=== PATIENT | male | born 1935 | race Caucasian/White ===

== ENCOUNTER 2017-10-14 23:25 | Inpatient (IN) | payer MEDICARE, OTHER ==
[~2017-10-14 23:25] MED LIST: BIVALIRUDIN 250 MG in SODIUM CHLORIDE 0.9% 50 ML IV ONE; IV FLUID CONTINUATION 1,000 ML IV ONE
[2017-10-14] MEDS ORDERED: NITROGLYCERIN SL TABS 0.4 MG TAB SUBLINGUAL PRN (23:27)
--- NOTE | 2017-10-14 23:36 | ED ---
Chest Pain HPI - General Stated Complaint: Chest Pain Time Seen by Provider: 10/14/17 23:27 Source: patient, EMS Mode of arrival: EMS Limitations: no limitations - History of Present Illness Initial Comments: This patient is an 82-year-old man brought by ambulance to be evaluated for chest pain. Family had called EMS tonight after the patient had a fall at home and then was complaining of chest pain. The symptoms started probably nearly an hour ago now. The patient was walking across his home had a ground-level fall, and then after the fall was complaining of having pain to the substernal area. He also felt like it was very hard to breathe. EMS arrived and placed the patient on a monitor which did appear to show inferior lead ST elevations. They sent a telemetry EKG and transported the patient here. History is somewhat limited as the patient appears to have some moderate underlying dementia. MD Complaint: chest pain -: hour(s) Onset: other (After a fall) Pain Location: substernal Pain Radiation: none Severity: moderate Quality: aching Consistency: constant, other (Somewhat improved) Improves With: nitroglycerin, other (Aspirin) Worsens With: nothing Context: trauma/injury Anginal Symptoms: dyspnea Treatments Prior to Arrival: aspirin, nitroglycerin, oxygen - Related Data Home Medications Medication Instructions Recorded Confirmed Donepezil [Aricept] 10 mg PO DAILY 10/15/17 10/15/17 Enalapril Maleate [Vasotec] 5 mg PO DAILY 10/15/17 10/15/17 Etodolac [Lodine] 400 mg PO BID 10/15/17 10/15/17 Hydrochlorothiazide 25 mg PO DAILY 10/15/17 10/15/17 Lovastatin [Mevacor] 10 mg PO DAILY 10/15/17 10/15/17 Multivitamin with Iron 1 each PO DAILY 10/15/17 10/15/17 [Multivitamins with Iron] Sertraline [Zoloft] 25 mg PO DAILY 10/15/17 10/15/17 Tamsulosin [Flomax] 0.8 mg PO DAILY 10/15/17 10/15/17 Verapamil HCl [Verapamil ER] 180 mg PO DAILY 10/15/17 10/15/17 Allergies Allergy/AdvReac Type Severity Reaction Status Date / Time No Known Allergies Allergy Verified 03/17/18 23:31 Review of Systems ROS Statement: Those systems with pertinent positive or pertinent negative responses have been documented in the HPI. ROS Other: All systems not noted in ROS Statement are negative. Constitutional: Denies: fever Eyes: Denies: vision change Respiratory: Reports: as per HPI, dyspnea. Denies: cough, hemoptysis Cardiovascular: Reports: chest pain. Denies: palpitations, orthopnea, syncope Gastrointestinal: Denies: abdominal pain, vomiting, melena, hematochezia Musculoskeletal: Denies: back pain Skin: Denies: rash Neurological: Denies: headache, weakness, numbness EKG Findings - EKG Results: EKG: interpreted by ERMD, normal axis, normal QRS EKG shows: bradycardia (Rate proximally 46 bpm. Narrow complex rhythm appearing to be junctional.) - CO, Pacemaker, Normal: Myocardial infarction: inferior CO (acute or recent) Past Medical History Past Medical History: No Reported History History of Any Multi-Drug Resistant Organisms: None Reported Past Surgical History: Back Surgery Past Psychological History: No Psychological Hx Reported Smoking Status: Former smoker Past Alcohol Use History: Daily - Past Family History Father Family Medical History: Renal Disease Mother Family Medical History: Myocardial Infarction ([place]) General Exam Limitations: no limitations General appearance: alert, in no apparent distress Head exam: Present: atraumatic, normocephalic Eye exam: Present: normal appearance. Absent: scleral icterus, conjunctival injection ENT exam: Present: normal oropharynx Neck exam: Present: normal inspection, full ROM Respiratory exam: Present: normal lung sounds bilaterally. Absent: respiratory distress, wheezes, rales, rhonchi, stridor Cardiovascular Exam: Present: normal rhythm, bradycardia, normal heart sounds. Absent: systolic murmur, diastolic murmur, rubs, gallop GI/Abdominal exam: Present: soft. Absent: distended, tenderness, guarding, rebound, mass Extremities exam: Present: normal inspection, normal capillary refill. Absent: pedal edema, calf tenderness Neurological exam: Present: alert. Absent: oriented X3 (Disoriented to date), motor sensory deficit Skin exam: Present: warm, dry, intact, normal color. Absent: rash Course Vital Signs 10/14/17 10/14/17 23:26 23:42 Temperature 97.4 F L Pulse Rate 51 L 48 L Respiratory 20 18 Rate Blood Pressure 112/54 91/57 O2 Sat by Pulse 99 99 Oximetry Chest Pain MDM - MDM Patient is an 82-year-old man in with acute ST elevation CO. Discussed the case with interventional cardiology based on the EMS telemetry EKG. The cath team is already in the house doing another procedure. On arrival, patient prepped and to [facility] T[facility]. Critical Care Time Critical Care Time: Yes (30 minutes) Disposition Clinical Impression: ST elevation myocardial infarction (STEMI) Disposition: ADMITTED IP TO THIS HOSP Condition: Serious
[2017-10-14] MEDS ORDERED: HEPARIN SODIUM,PORCINE 5,000 UNIT/ML 1 ML VIAL IV ONE (23:40)
[2017-10-14] MEDS ORDERED: ATORVASTATIN 80 MG TAB PO STA (23:41)
[2017-10-14] MEDS ORDERED: HEPARIN SOD,PORK IN 0.45% NACL 25,000 UNIT in 0.45% NACL 1 500ML.BAG IV SCH (23:45)
[2017-10-14 23:47] LABS: Basophils # (A) 0.1 k/uL (0-0.2); Basophils % (A) 1 %; Eosinophils # (A) 0.5 k/uL (0-0.7); Eosinophils % (A) 5 %; HCT 42.3 % (39.0-53.0); HGB 14.8 gm/dL (13.0-17.5); Lymphocytes # (A) 2.7 k/uL (1.0-4.8); Lymphocytes % (A) 27 %; MCH 31.8 pg (25.0-35.0); MCV 90.8 fL (80.0-100.0); Mean Platelet Volume 7.3; Monocytes # (A) 0.7 k/uL (0-1.0); Monocytes % (A) 7 %; Neutrophils # (A) 5.7 k/uL (1.3-7.7); Neutrophils % (A) 58 %; Platelet Count 298 k/uL (150-450); RBC 4.66 m/uL (4.30-5.90); RDW 12.9 % (11.5-15.5); WBC 9.9 k/uL (3.8-10.6)
[2017-10-14 23:49] LABS: Albumin 3.6 g/dL (3.5-5.0); Calcium 9.9 mg/dL (8.4-10.2); Potassium 3.8 mmol/L (3.5-5.1); Total Bilirubin 0.4 mg/dL (0.2-1.3); Total Protein 5.9 g/dL (6.3-8.2)
[2017-10-14 23:50] LABS: INR 1.1 (<1.2); Prothrombin Time 10.6 sec (9.0-12.0)
[2017-10-14] MEDS ORDERED: LIDOCAINE 2% INJ 20 MG/ML SQ ONE (23:57)
--- NOTE | 2017-10-14 23:58 | XR ---
EXAMINATION TYPE: XR chest 1V portable DATE OF EXAM: 10/14/2017 COMPARISON: NONE HISTORY: Chest pain TECHNIQUE: Single frontal view of the chest is obtained. FINDINGS: Heart is normal. There is coarsening of interstitial markings at the lung bases. There are small linear density in the left lower lobe. There is no heart failure. Thoracic aorta is atheromato us. There are chest leads. IMPRESSION: Fibrotic changes and subsegmental atelectasis at the lung bases. No gross heart failure.
[2017-10-15] MEDS ORDERED: BIVALIRUDIN BOLUS 250 MG/50 ML IV ONE (00:09)
[2017-10-15] MEDS ORDERED: CLOPIDOGREL 75 MG TAB PO ONE (00:09)
[2017-10-15 00:11] LABS: Creatine Kinase MB 1.8 ng/mL (0.0-2.4); Troponin I 0.025 ng/mL (0.000-0.034)
[2017-10-15] MEDS ORDERED: CLOPIDOGREL 75 MG TAB ONE (00:11)
[2017-10-15] MEDS ORDERED: IOHEXOL 350 MG/ML 125ML BOTTLE INJ ONE (00:29)
[2017-10-15] MEDS ORDERED: NITROGLYCERIN SL TABS 0.4 MG TAB SUBLINGUAL PRN (00:54)
[2017-10-15] MEDS ORDERED: RX INFO: IV CONTRAST WAS GIVEN 1 EACH MISC MISCELLANE PRN (00:54)
[2017-10-15] MEDS ORDERED: MAG HYDROX/AL HYDROX/SIMETH 30 ML CUP PO PRN (00:54)
[2017-10-15] MEDS ORDERED: ATROPINE SULFATE 0.1 MG/ML 10ML SYRINGE IV PRN (00:54)
[2017-10-15] MEDS ORDERED: SODIUM CHLORIDE 0.9% 1,000 ML IV SCH (01:00)
--- NOTE | 2017-10-15 01:05 | CONS ---
CONSULTATION DATE OF SERVICE: 10/14/2017. HISTORY: Mr. Maxwell is an 82-year-old male with a known history of hypertension, hyperlipidemia, as well as a history of diabetes mellitus, who presented with symptoms of discomfort. According to him, he was home when he kind of felt weak and could not get up and started to have chest discomfort. He came into the emergency room, was found to have evidence of inferior wall myocardial infarction with ST-segment elevation inferiorly and sinus bradycardia and an episode of junctional rhythm. According to the family, he has underwent cardiac catheterization over 20 years ago and at that time there was no evidence of obstructive coronary disease. The patient denies any recent episode of chest discomfort. He is breathing stable, although he is not very active physically. He denies any palpitations. No syncope. No PND, orthopnea, or peripheral edema. His coronary risk factors are remarkable for hypertension, hyperlipidemia, diabetes mellitus. He is a nonsmoker. He cannot recall the list of his medication. REVIEW OF SYSTEMS: RESPIRATORY SYSTEM: He has dyspnea on exertion, but no history of obstructive lung disease. GI SYSTEM: No recent GI bleed. No peptic ulcer disease. SYSTEM: No dysuria or hematuria. NERVOUS SYSTEM: No history of stroke or seizure. PHYSICAL EXAMINATION: He is an 82-year-old male, alert, in no apparent distress. Heart rate running in the 40s. HEAD: Normocephalic eyes sclerae anicteric. NECK: No bruit. LUNGS: Clear to auscultation anteriorly. HEART: Regular rhythm S1, S2. No S3. No rub appreciated. ABDOMEN: Soft, nontender. Positive bowel sounds no organomegaly. EXTREMITIES: No edema. Intact distal pulses. LAB DATA: EKG revealed a junctional rhythm at a rate of [address] elevation from leads 2, 3 and aVF, as well as the lateral precordial leads and ST depression in 1 in AVL, all consistent with acute inferior myocardial infarction. IMPRESSION: 1. Acute inferior myocardial infarction. 2. Hypertension. 3. Hyperlipidemia. 4. Diabetes mellitus. RECOMMENDATIONS: I recommend proceeding with emergent cardiac catheterization. The rationale behind the procedures risks and complications were discussed with the patient and his and they are in full understanding and agreement. Thank you for this consult. We will follow with you. MMODL / IJN: [id number] /
[2017-10-15 06:10] LABS: Glucose,Whole Blood 101 mg/dL (75-99)
--- NOTE | 2017-10-15 07:06 | CC ---
CARDIAC CATHETERIZATION REPORT Mr. Maxwell is an 82-year-old male known history of hypertension, hyperlipidemia, diabetes mellitus, who presented to the emergency room with an acute ST-segment elevation myocardial infarction. In view of that, recommendation made regarding cardiac catheterization the procedures as well as risks and complication were discussed with the patient and his family and they are in full understanding and agreement. PROCEDURE: Patient was brought to microbiological laboratory technician after receiving fentanyl and Benadryl and achieving moderate conscious sedated state. Using Xylocaine anesthesia in the Seldinger technique, a 6-Togolese sheath was introduced in the right femoral artery. Selective right and left angiography were performed using 6-Togolese FR4 guiding catheter and after performing angioplasty and stenting of the right coronary artery, a 6-Togolese 4 bend left Hermelindo catheter was used to cannulate the left main and images of left coronary system were obtained. Following that, a 6-Togolese tight pigtail catheter introduced into his left ventricle and a 30 degree GREENE view of the left ventricle was obtained. Following that, the catheter and sheaths were removed. Hemostasis was obtained with deployment of an Angio-Seal. There was no immediate complication. The patient was returned to his room in stable condition. FINDINGS: Left Main: This is a short size vessel bifurcating left circumflex left anterior descending artery. The left main coronary artery has no evidence of high-grade stenosis. Left Anterior Descending Artery: This is a large-sized vessel reaching to the apex with a wraparound apex segment. The left anterior descending artery proximally has a 20% to 30% plaque. The mid segment has another 30% plaque. The rest of the vessel has no high-degree stenosis. The LAD gives rise to a large diagonal branch in the proximal segment. The takeoff of the diagonal branch has a plaque of about 50%. Left Circumflex: This is a nondominant vessel giving rise to 2 obtuse marginal branches. The first one is largest in caliber that of obtuse marginal branch in the proximal segment has a 60% plaque. The rest of the vessel has no high-grade stenosis. Right Coronary Artery: This vessel is totally occluded proximally with no antegrade flow. LEFT VENTRICULOGRAM: Left ventriculogram was performed in 30 degree GREENE view and revealed mild inferobasal hypokinesis. The ejection fraction is estimated at 50%. There was 2 to 3+ mitral regurgitation. There appears to be arrhythmia induced mitral regurgitation. HEMODYNAMICS: There was no gradient across the aortic valve. The left ventricle end-diastolic pressure was 14 mmHg. CONCLUSION: 1. Acutely occluded proximal right coronary artery. 2. Mild disease in the LAD. 3. Moderate disease in the first obtuse marginal branch. 4. Minimally impaired left ventricular systolic function. RECOMMENDATION: In view of finding anatomy, I recommend proceeding with angioplasty and stenting of the right coronary artery the procedures risks and complication were discussed with the patient who was in full understanding and agreement. MMODL / IJN: [id number] /
--- NOTE | 2017-10-15 07:12 | PTCA ---
PERCUTANEOUSTRANS CORORONARY ANGIOGRAPHY Mr. Maxwell is 82-year-old male with a history of hypertension, hyperlipidemia, diabetes mellitus, who presented with an acute inferior myocardial infarction, underwent cardiac catheterization, was found to have a totally occluded proximal right coronary artery. In view of that, recommendation made regarding angioplasty and stenting. The procedures as well as risks and complication were discussed with the patient who is in full understanding and agreement. PROCEDURE: Using a 6-English FR4 guiding catheter and after cannulating the right coronary ostium, a 0.014 balanced medium weight J-wire was advanced across the lesion and positioned distally. Then a 2.25 x 12 mm Trek balloon was advanced and one inflation at 10 atmospheres was done. Following that, the balloon was removed and a 2.75 x 18 mm Xience Alpine stent was deployed. Post-dilated at 14 atmospheres. Following that, the balloon was removed and proximal to that stent, a 3.0 x 12 mm Xience Alpine stent was deployed and post dilated at 14 atmospheres. After that, the last inflation, the balloon was advanced in the overlap segment and then inflation at 16 atmospheres was done. Following that, the balloon was removed and images of the left coronary system and left ventriculogram was performed. Following that, the catheter and sheath were removed. Hemostasis was obtained deployment of an Angio-Seal. There was no immediate complication. Patient is returned to his room in stable condition. Of note, the patient had chest discomfort resolution at the end of the procedure as well as improvement in his EKG changes. He received Angiomax per protocol as well as oral loading dose of clopidogrel. RESULTS: Successful stenting of the proximal right coronary artery with reduction of stenosis from 100% to 0%. RECOMMENDATION: Patient will be continued on aspirin, Plavix, ROSENDO inhibitor, and statin. The beta zeke will be re-initiated once his heart rate is stabilized. Those findings and recommendation were discussed with the patient and agreement. DURATION OF PROCEDURE: 40 minutes. MMODL / IJN: [id number] /
[2017-10-15] MEDS ORDERED: HYDROCHLOROTHIAZIDE 25 MG TAB PO SCH (09:00)
[2017-10-15] MEDS ORDERED: VERAPAMIL SR 180 MG TABLET.ER PO SCH (09:00)
[2017-10-15] MEDS ORDERED: LISINOPRIL 10 MG TAB PO SCH (09:00)
[2017-10-15] MEDS: CLOPIDOGREL 75 MG TAB PO SCH (09:04)
[2017-10-15] MEDS: MULTIVITAMINS, THERA 1 EACH TAB PO SCH (09:04)
[2017-10-15] MEDS: ASPIRIN 81 MG PO SCH (09:04)
[2017-10-15] MEDS: SERTRALINE 25 MG TAB PO SCH (09:05)
--- NOTE | 2017-10-15 11:18 | PN ---
PROGRESS NOTE An 82-year-old gentleman is admitted to hospital with acute inferior wall myocardial infarction and underwent cardiac catheterization and angioplasty. This morning he is doing well and is free of symptoms. PHYSICAL EXAMINATION: On exam, comfortable at rest. Vital signs are stable. There is no jugular venous distention. Chest exam reveals good air entry bilaterally. Heart exam reveals first and second heart sounds. No gallop. Has an ejection systolic murmur in the aortic area. Abdomen is soft. Exam of extremities reveal trace edema. Peripheral pulses are palpable. LABS: Showed that the troponin is elevated at 36. Hemoglobin is normal at 14.8. Potassium is 3.8, creatinine is 1. ASSESSMENT: Acute inferior wall myocardial infarction status post catheterization and angioplasty. The patient is doing well. He will continue aspirin, Lipitor, Plavix 75 mg daily, Zestril and HydroDIURIL that he is currently on along with the Isoptin. We will obtain a 2D echo in the morning. JENNYFER / FRANKN: [id number] /
[2017-10-15 12:18] LABS: Glucose,Whole Blood 85 mg/dL (75-99)
--- NOTE | 2017-10-15 14:47 | P.HPIM ---
History of Present Illness 82-year-old man came in with compensative chest pain typical in nature found to have ST elevation microinfarction found to have 100 process and blockage and RCA underwent cardiac catheterization and stenting his pain-free at this point of time patient is on dual antiplatelet therapy. Patient denied any shortness of breath echocardiac exam is pending. Denied any fever chills nausea vomiting Review of Systems REVIEW OF SYSTEMS: CONSTITUTIONAL: No fever, no malaise, no fatigue. HEENT: No recent visual problems or hearing problems. Denied any sore throat. CARDIOVASCULAR: No orthopnea, PND, no palpitations, no syncope. PULMONARY: No shortness of breath, no cough, no hemoptysis. GASTROINTESTINAL: No diarrhea, no nausea, no vomiting, no abdominal pain. Normoactive bowel sounds. NEUROLOGICAL: No headaches, no weakness, no numbness. HEMATOLOGICAL: Denies any bleeding or petechiae. GENITOURINARY: Denies any burning micturition, frequency, or urgency. MUSCULOSKELETAL/RHEUMATOLOGICAL: Denies any joint pain, swelling, or any muscle pain. ENDOCRINE: Denies any polyuria or polydipsia. The rest of the 14-point review of systems is negative. Past Medical History Past Medical History: No Reported History History of Any Multi-Drug Resistant Organisms: None Reported Past Surgical History: Back Surgery Additional Past Surgical History / Comment(s): Heart Cath today 10/15 2 stents to the RCA Past Anesthesia/Blood Transfusion Reactions: No Reported Reaction Date of Last Stent Placement:: 10/15/17 Past Psychological History: No Psychological Hx Reported Smoking Status: Former smoker Past Alcohol Use History: Daily - Past Family History Father Family Medical History: Renal Disease Mother Family Medical History: Myocardial Infarction ([place]) Medications and Allergies Home Medications Medication Instructions Recorded Confirmed Type Donepezil [Aricept] 10 mg PO DAILY 10/15/17 10/15/17 History Enalapril Maleate [Vasotec] 5 mg PO DAILY 10/15/17 10/15/17 History Etodolac [Lodine] 400 mg PO DAILY 10/15/17 10/15/17 History Hydrochlorothiazide 25 mg PO DAILY 10/15/17 10/15/17 History Lovastatin [Mevacor] 10 mg PO DAILY 10/15/17 10/15/17 History Multivitamin with Iron 1 tab PO DAILY 10/15/17 10/15/17 History [Multivitamins with Iron] Sertraline [Zoloft] 25 mg PO DAILY 10/15/17 10/15/17 History Tamsulosin [Flomax] 0.4 mg PO DAILY 10/15/17 10/15/17 History Verapamil HCl [Verapamil ER] 180 mg PO DAILY 10/15/17 10/15/17 History Allergies Allergy/AdvReac Type Severity Reaction Status Date / Time No Known Allergies Allergy Verified 10/15/17 08:16 Physical Exam Vitals: Vital Signs Temp Pulse Pulse Pulse Resp BP BP 10/15/17 13:56 97.5 F L 61 18 104/49 10/15/17 12:51 97.7 F 76 18 119/56 10/15/17 11:52 97.1 F L 63 20 10/15/17 10:54 97.1 F L 58 L 18 10/15/17 10:00 97.6 F 68 20 136/74 10/15/17 09:00 97.2 F L 60 18 10/15/17 07:47 97.1 F L 65 18 10/15/17 07:00 78 18 136/76 10/15/17 06:00 74 16 10/15/17 05:00 63 16 10/15/17 04:50 62 18 10/15/17 04:00 62 18 10/15/17 03:50 85 10/15/17 03:00 57 L 16 10/15/17 02:50 75 10/15/17 02:20 65 10/15/17 01:50 67 10/15/17 01:35 10/15/17 01:20 89 10/15/17 01:05 97 F L 83 18 10/15/17 01:00 67 18 10/14/17 23:42 48 L 18 91/57 10/14/17 23:26 97.4 F L 51 L 20 112/54 BP Pulse Ox 10/15/17 13:56 94 L 10/15/17 12:51 97 10/15/17 11:52 128/63 97 10/15/17 10:54 148/72 95 10/15/17 10:00 97 10/15/17 09:00 159/71 97 10/15/17 07:47 153/70 98 10/15/17 07:00 166/77 97 10/15/17 06:00 151/76 97 10/15/17 05:00 145/70 95 10/15/17 04:50 131/63 95 10/15/17 04:00 10/15/17 03:50 164/75 10/15/17 03:00 139/71 94 L 10/15/17 02:50 150/72 94 L 10/15/17 02:20 128/63 96 10/15/17 01:50 134/73 10/15/17 01:35 136/68 97 10/15/17 01:20 151/70 98 10/15/17 01:05 141/59 98 10/15/17 01:00 10/14/17 23:42 99 10/14/17 23:26 99 Intake and Output 10/14/17 10/15/17 10/15/17 22:59 06:59 14:59 Intake Total 600 560 Output Total 350 800 Balance 250 -240 Intake: IV 600 100 Sodium Chloride 0.9% 1, 600 100 000 ml @ 100 mls/hr IV . Q10H ALMA ROSA Rx#:[id number] Intake, IV Titration 100 Amount Sodium Chloride 0.9% 1, 100 000 ml @ 100 mls/hr IV . Q10H ALMA ROSA Rx#:[id number] Oral 0 360 Output: Urine 350 800 Other: Voiding Method Urinal Urinal # Voids 0 Weight 62 kg PHYSICAL EXAMINATION: GENERAL: The patient is alert and oriented x3, not in any acute distress. Well developed, well nourished. HEENT: Pupils are round and equally reacting to light. EOMI. No scleral icterus. No conjunctival pallor. Normocephalic, atraumatic. No pharyngeal erythema. No thyromegaly. CARDIOVASCULAR: S1 and S2 present. No murmurs, rubs, or gallops. PULMONARY: Chest is clear to auscultation, no wheezing or crackles. ABDOMEN: Soft, nontender, nondistended, normoactive bowel sounds. No palpable organomegaly. MUSCULOSKELETAL: No joint swelling or deformity. EXTREMITIES: No cyanosis, clubbing, or pedal edema. NEUROLOGICAL: Gross neurological examination did not reveal any focal deficits. SKIN: No rashes. Results CBC & Chem 7: 10/14/17 23:28 10/14/17 23:28 Labs: Abnormal Lab Results - Last 24 Hours (Table) 10/14/17 10/15/17 10/15/17 Range/Units 23:28 05:39 06:07 BUN 22 H (9-20) mg/dL Glucose 147 H (74-99) mg/dL POC Glucose (mg/dL) 101 H (75-99) mg/dL Troponin I 36.400 H* (0.000-0.034) ng/mL Total Protein 5.9 L (6.3-8.2) g/dL 10/15/17 Range/Units 11:06 BUN (9-20) mg/dL Glucose (74-99) mg/dL POC Glucose (mg/dL) (75-99) mg/dL Troponin I 41.200 H* (0.000-0.034) ng/mL Total Protein (6.3-8.2) g/dL Thrombosis Risk Factor Assmnt - Choose All That Apply Each Risk Factor Represents 3 Points: Age 75 years or older Thrombosis Risk Factor Assessment Total Risk Factor Score: 3 Thrombosis Risk Factor Assessment Level: Moderate Risk Assessment and Plan Plan: -ST elevation myocardial infarction: Patient is presently on Antiplatelet therapy statin lisinopril awaiting echocardiogram. -Hypertension -Hyperlipidemia -Depression For above-mentioned chronic medical problems patient will be continued on appropriate home medications
[2017-10-15] MEDS: TAMSULOSIN 0.4 MG CAP.ER.24H PO SCH (17:59)
[2017-10-15 19:34] LABS: Hemoglobin A1C 5.4 % (4.0-6.0)
[2017-10-15] MEDS: ATORVASTATIN 80 MG TAB PO SCH (20:08)
[2017-10-15] MEDS: DONEPEZIL 10 MG TAB PO SCH (20:08)
[2017-10-15] MEDS: ZOLPIDEM 5 MG TAB PO PRN (22:32)
[2017-10-16] MEDS ORDERED: CLOPIDOGREL 75 MG TAB PO SCH (00:55)
[2017-10-16 06:23] LABS: Anion Gap 7 mmol/L; Blood Urea Nitrogen 16 mg/dL (9-20); Calcium 9.4 mg/dL (8.4-10.2); Carbon Dioxide 26 mmol/L (22-30); Chloride 103 mmol/L (98-107); Glucose 94 mg/dL (74-99); Potassium 4.1 mmol/L (3.5-5.1); Sodium 136 mmol/L (137-145)
[2017-10-16] MEDS: LISINOPRIL 5 MG TAB PO SCH (07:57)
[2017-10-16] MEDS: CLOPIDOGREL 75 MG TAB PO SCH (07:57)
[2017-10-16] MEDS: ASPIRIN 81 MG PO SCH (07:57)
[2017-10-16] MEDS: MULTIVITAMINS, THERA 1 EACH TAB PO SCH (07:57)
[2017-10-16] MEDS: METOPROLOL TARTRATE 25 MG TAB PO SCH ×2 (07:57→20:30)
[2017-10-16] MEDS: SERTRALINE 25 MG TAB PO SCH (08:44)
--- NOTE | 2017-10-16 12:18 | P.PN ---
Subjective Progress Note Date: 10/16/17 Principal diagnosis: Inferior STEMI This is an 82-year-old gentleman who presented to the hospital with an acute inferior wall myocardial infarction. Patient was taken to the cardiac catheterization lab and underwent angioplasty and stenting of the right coronary artery. He was seen and examined this morning, denies any chest pain, breathing overall has been stable pressure 144/60, heart rate in the 50s, 97% on room air. Sodium 136, potassium 4.1, BUN 16, creatinine 0.7. EKG shows normal sinus rhythm with residual ST elevation in the inferior leads, however significantly improved from admission. Echocardiogram with Doppler study has been requested and is yet pending. Objective - Vital Signs Vital signs: Vital Signs Temp 97 F L 10/16/17 11:30 Pulse 53 L 10/16/17 11:30 Resp 18 10/16/17 11:30 BP 145/67 10/16/17 11:30 Pulse Ox 97 10/16/17 11:30 Intake & Output 10/15/17 10/16/17 10/16/17 18:59 06:59 18:59 Intake Total 902 240 Output Total 925 350 500 Balance -23 -350 -260 Weight 76 kg Intake: IV 100 Sodium Chloride 0.9% 1, 100 000 ml @ 100 mls/hr IV . Q10H ALMA ROSA Rx#:[id number] Intake, IV Titration 100 Amount Sodium Chloride 0.9% 1, 100 000 ml @ 100 mls/hr IV . Q10H ALMA ROSA Rx#:[id number] Oral 702 240 Output: Urine 925 350 500 Other: Voiding Method Urinal Urinal Urinal # Voids 1 # Bowel Movements 1 - Exam PHYSICAL EXAMINATION: HEENT: Head is atraumatic, normocephalic. Pupils equal, round. Neck is supple. There is no elevated jugular venous pressure. HEART EXAMINATION: Heart S1, S2 normal. No murmur or gallop heard. CHEST EXAMINATION: Lungs are clear to auscultation and precussion. No chest wall tenderness is noted on palpation or with deep breathing. ABDOMEN: Soft, nontender. Bowel sounds are heard. No organomegaly noted. Right groin soft, no evidence of any hematoma. EXTREMITIES: 2+ peripheral pulses with no evidence of peripheral edema and no calf tenderness noted. NEUROLOGIC patient is awake, alert and oriented -3. . - Labs CBC & Chem 7: 10/14/17 23:28 10/16/17 05:30 Labs: Abnormal Lab Results - Last 24 Hours (Table) 10/15/17 10/16/17 Range/Units 11:06 05:30 Sodium 136 L (137-145) mmol/L Troponin I 41.200 H* (0.000-0.034) ng/mL Assessment and Plan Plan: Assessment and plan #[address] elevation myocardial infarction, status post angioplasty and stenting of the right coronary artery. #2 hyperlipidemia #3 hypertension Plan We will review the echocardiogram with Doppler study which is yet pending. We will continue the patient on aspirin 81 mg daily, Lipitor 80 mg daily, Plavix 75 mg daily, lisinopril 5 mg daily, metoprolol 25 one tablet twice a day. Plan for possible discharge home in 24-48 hours if stable. DNP note has been reviewed, I agree with a documented findings and plan of care. Patient was seen and examined.
[2017-10-16] MEDS ORDERED: IPRATROPIUM-ALBUTEROL 3 ML NEB INHALATION PRN (13:01)
--- NOTE | 2017-10-16 13:38 | XR ---
EXAMINATION TYPE: XR chest 2V DATE OF EXAM: 10/16/2017 COMPARISON: 10/14/2017 TECHNIQUE: PA and lateral views submitted. HISTORY: Chest pain FINDINGS: The lungs are clear and there is no pneumothorax, pleural effusion, or focal pneumonia. Hyperinflat ion suggests COPD. Arthropathy of the shoulders and diffuse osteopenia noted. Biapical pleural thicke trevin. Hypertrophic and degenerative changes spine noted. IMPRESSION: 1. No acute process. Findings suggest COPD with no definite acute process. Correlate clinically.
--- NOTE | 2017-10-16 13:51 | P.PN ---
Subjective Patient was admitted for ST elevation microinfarction, underwent stenting of RCA patient is feeling much better now upon exam patient does have bilateral rhonchus breath sounds probably related to bronchitis. Minimal expiratory wheezing was appreciated will obtain a chest x-ray to make sure patient does not have any pneumonic process. Patient will be started on doxepin 100 twice a day for bronchitis along with inhalational steroids and inhalational albuterol and ipratropium. Constitutional: Denied any fatigue denied any fever. Cardio vascular: denied any chest pain, palpitations Gastrointestinal denied any nausea vomiting Pulmonary: Denied any shortness of breath cough Neurologic denied any new focal deficits Objective - Vital Signs Vital signs: Vital Signs Temp 97 F L 10/16/17 11:30 Pulse 53 L 10/16/17 11:30 Resp 18 10/16/17 11:30 BP 145/67 10/16/17 11:30 Pulse Ox 97 10/16/17 11:30 Intake & Output 10/15/17 10/16/17 10/16/17 18:59 06:59 18:59 Intake Total 902 240 Output Total 925 350 500 Balance -23 -350 -260 Weight 76 kg Intake: IV 100 Sodium Chloride 0.9% 1, 100 000 ml @ 100 mls/hr IV . Q10H ALMA ROSA Rx#:[id number] Intake, IV Titration 100 Amount Sodium Chloride 0.9% 1, 100 000 ml @ 100 mls/hr IV . Q10H ALMA ROSA Rx#:[id number] Oral 702 240 Output: Urine 925 350 500 Other: Voiding Method Urinal Urinal Urinal # Voids 1 # Bowel Movements 1 - Exam PHYSICAL EXAMINATION: GENERAL: The patient is alert and oriented x3, not in any acute distress. Well developed, well nourished. HEENT: Pupils are round and equally reacting to light. EOMI. No scleral icterus. No conjunctival pallor. Normocephalic, atraumatic. No pharyngeal erythema. No thyromegaly. CARDIOVASCULAR: S1 and S2 present. No murmurs, rubs, or gallops. PULMONARY: Rhonchorous breath sounds, minimal expiratory wheezing was appreciated ABDOMEN: Soft, nontender, nondistended, normoactive bowel sounds. No palpable organomegaly. MUSCULOSKELETAL: No joint swelling or deformity. EXTREMITIES: No cyanosis, clubbing, or pedal edema. NEUROLOGICAL: Gross neurological examination did not reveal any focal deficits. SKIN: No rashes. - Labs CBC & Chem 7: 10/14/17 23:28 10/16/17 05:30 Labs: Abnormal Lab Results - Last 24 Hours (Table) 10/16/17 Range/Units 05:30 Sodium 136 L (137-145) mmol/L Assessment and Plan Plan: -ST elevation myocardial infarction: Patient is presently on Antiplatelet therapy statin lisinopril awaiting echocardiogram. -Tracheal bronchitis with a competent of undiagnosed COPD: Management as mentioned with Dr. Prosper Yip Symbicort and albuterol ipratropium inhalation -Hypertension -Hyperlipidemia -Depression For above-mentioned chronic medical problems patient will be continued on appropriate home medications
[2017-10-16 15:00] VITALS: BMI 25.4
[2017-10-16] MEDS: IPRATROPIUM-ALBUTEROL 3 ML NEB INHALATION SCH ×2 (16:00→20:00)
[2017-10-16] MEDS: TAMSULOSIN 0.4 MG CAP.ER.24H PO SCH (17:50)
[2017-10-16] MEDS: SYMBICORT 160-4.5 MCG INHALER INHALATION SCH (19:59)
--- NOTE | 2017-10-16 20:07 | ECHOF ---
Referral Reason:mi MEASUREMENTS -------- HEIGHT: 172.7 cm WEIGHT: 60.8 kg BP: 143/72 RVIDd: 3.0 cm (< 3.3) IVSd: 1.3 cm (0.6 - 1.1) LVIDd: 4.5 cm (3.9 - 5.3) LVPWd: 1.2 cm (0.6 - 1.1) IVSs: 1.8 cm LVIDs: 3.4 cm LVPWs: 1.6 cm LA Diam: 3.5 cm (2.7 - 3.8) LAESV Index (A-L): 42.02 ml/m Ao Diam: 3.4 cm (2.0 - 3.7) AV Cusp: 1.6 cm (1.5 - 2.6) MV EXCURSION: 22.907 mm (> 18.000) MV EF SLOPE: 82 mm/s (70 - 150) EPSS: 1.0 cm MV E Pavel: 0.92 m/s MV DecT: 273 ms MV A Pavel: 1.18 m/s MV E/A Ratio: 0.78 AR PHT: 935 ms RAP: 5.00 mmHg RVSP: 29.15 mmHg FINDINGS -------- Sinus rhythm. This was a technically adequate study. The left ventricular size is normal. There is mild concentric left ventricular hypertrophy. Overa ll left ventricular systolic function is mild-moderately impaired with, an EF between 40 - 45 %. Ba enrique inferior LV wall motion is hypokinetic. Basal inferoseptal LV wall motion is hypokinetic. The right ventricle is normal in size and function. LA is severely dilated >40 ml/m2 The right atrium is normal in size. There is mild aortic valve sclerosis. There is mild aortic regurgitation. Mild mitral annular calcification present. Mild mitral regurgitation is present. Mild tricuspid regurgitation present. Right ventricular systolic pressure is normal at < 35 mmHg. Trace/mild (physiologic) pulmonic regurgitation. The aortic root size is normal. Normal inferior vena cava with normal inspiratory collapse consistent with estimated right atrial pre ssure of 5 mmHg. There is no pericardial effusion. CONCLUSIONS -------- 1. Sinus rhythm. 2. This was a technically adequate study. 3. The left ventricular size is normal. 4. There is mild concentric left ventricular hypertrophy. 5. Overall left ventricular systolic function is mild-moderately impaired with, an EF between 40 - 45 %. 6. Basal inferior LV wall motion is hypokinetic. 7. Basal inferoseptal LV wall motion is hypokinetic. 8. The right ventricle is normal in size and function. 9. LA is severely dilated >40 ml/m2 10. The right atrium is normal in size. 11. There is mild aortic valve sclerosis. 12. There is mild aortic regurgitation. 13. Mild mitral annular calcification present. 14. Mild mitral regurgitation is present. 15. Mild tricuspid regurgitation present. 16. Right ventricular systolic pressure is normal at < 35 mmHg. 17. Trace/mild (physiologic) pulmonic regurgitation. 18. The aortic root size is normal. 19. Normal inferior vena cava with normal inspiratory collapse consistent with estimated right atrial pressure of 5 mmHg. 20. There is no pericardial effusion. SPECIAL EDUCATION DIRECTOR: Aleta Driscoll RDCS
[2017-10-16] MEDS: DONEPEZIL 10 MG TAB PO SCH (20:30)
[2017-10-16] MEDS: ATORVASTATIN 80 MG TAB PO SCH (20:30)
[2017-10-16] MEDS: DOXYCYCLINE 50 MG CAP PO SCH (20:30)
[2017-10-16] MEDS: ZOLPIDEM 5 MG TAB PO PRN (20:33)
[2017-10-16 21:49] LABS: HGB 14.2 gm/dL (13.0-17.5); MCHC 33.9 g/dL (31.0-37.0); MCV 91.3 fL (80.0-100.0); Mean Platelet Volume 7.2; Platelet Count 273 k/uL (150-450); RDW 12.8 % (11.5-15.5); WBC 9.7 k/uL (3.8-10.6)
[2017-10-17 05:57] LABS: Basophils # (A) 0.1 k/uL (0-0.2); Basophils % (A) 1 %; Eosinophils # (A) 0.4 k/uL (0-0.7); Eosinophils % (A) 6 %; HCT 40.8 % (39.0-53.0); HGB 14.2 gm/dL (13.0-17.5); Lymphocytes # (A) 1.4 k/uL (1.0-4.8); Lymphocytes % (A) 18 %; MCH 31.2 pg (25.0-35.0); MCHC 34.9 g/dL (31.0-37.0); MCV 89.4 fL (80.0-100.0); Mean Platelet Volume 6.7; Monocytes # (A) 0.6 k/uL (0-1.0); Monocytes % (A) 8 %; Neutrophils # (A) 5.1 k/uL (1.3-7.7); Neutrophils % (A) 65 %; Platelet Count 266 k/uL (150-450); RBC 4.56 m/uL (4.30-5.90); RDW 12.7 % (11.5-15.5); WBC 7.8 k/uL (3.8-10.6)
[2017-10-17 06:07] LABS: Anion Gap 6 mmol/L; Blood Urea Nitrogen 21 mg/dL (9-20); Calcium 9.7 mg/dL (8.4-10.2); Carbon Dioxide 27 mmol/L (22-30); Chloride 104 mmol/L (98-107); Glucose 97 mg/dL (74-99); Potassium 4.1 mmol/L (3.5-5.1); Sodium 137 mmol/L (137-145)
[2017-10-17] MEDS: SYMBICORT 160-4.5 MCG INHALER INHALATION SCH (08:18)
[2017-10-17] MEDS: IPRATROPIUM-ALBUTEROL 3 ML NEB INHALATION SCH ×2 (08:18→12:16)
[2017-10-17] MEDS: SERTRALINE 25 MG TAB PO SCH (08:47)
[2017-10-17] MEDS: LISINOPRIL 5 MG TAB PO SCH (08:47)
[2017-10-17] MEDS: METOPROLOL TARTRATE 25 MG TAB PO SCH (08:47)
[2017-10-17] MEDS: ASPIRIN 81 MG PO SCH (08:47)
[2017-10-17] MEDS: MULTIVITAMINS, THERA 1 EACH TAB PO SCH (08:47)
[2017-10-17] MEDS: CLOPIDOGREL 75 MG TAB PO SCH (08:47)
--- NOTE | 2017-10-17 10:45 | P.PN ---
Subjective Progress Note Date: 10/17/17 Principal diagnosis: Inferior STEMI This is an 82-year-old gentleman who presented to the hospital with an acute inferior wall myocardial infarction. Patient was taken to the cardiac catheterization lab and underwent angioplasty and stenting of the right coronary artery. He was seen and examined this morning, denies any chest pain, breathing overall has been stable pressure 144/60, heart rate in the 50s, 97% on room air. Sodium 136, potassium 4.1, BUN 16, creatinine 0.7. EKG shows normal sinus rhythm with residual ST elevation in the inferior leads, however significantly improved from admission. Echocardiogram with Doppler study has been requested and is yet pending. 10/17/2017 Patient was seen and examined this morning, denies any chest pain or difficulty in breathing. He has been up ambulating without any difficulty. An echocardiogram with Doppler study was performed which revealed an ejection fraction of 40-45%, severely dilated left atrium. No arrhythmias have been noted on the monitor. From cardiology's perspective, he should be able to be discharged home today to follow-up in the office with Dr. Haynes post discharge. Objective - Vital Signs Vital signs: Vital Signs Temp 96.4 F L 10/17/17 08:47 Pulse 60 10/17/17 08:47 Resp 20 10/17/17 08:47 BP 118/58 10/17/17 08:47 Pulse Ox 97 10/17/17 08:47 Intake & Output 10/16/17 10/17/17 10/17/17 18:59 06:59 18:59 Intake Total 840 360 Output Total 500 300 100 Balance 340 -300 260 Weight 76 kg 66.1 kg Intake: Oral 840 360 Output: Urine 500 300 100 Other: Voiding Method Urinal Urinal Urinal # Voids 1 # Bowel Movements 1 - Exam PHYSICAL EXAMINATION: HEENT: Head is atraumatic, normocephalic. Pupils equal, round. Neck is supple. There is no elevated jugular venous pressure. HEART EXAMINATION: Heart S1, S2 normal. No murmur or gallop heard. CHEST EXAMINATION: Lungs are clear to auscultation and precussion. No chest wall tenderness is noted on palpation or with deep breathing. ABDOMEN: Soft, nontender. Bowel sounds are heard. No organomegaly noted. Right groin soft, no evidence of any hematoma. EXTREMITIES: 2+ peripheral pulses with no evidence of peripheral edema and no calf tenderness noted. NEUROLOGIC patient is awake, alert and oriented -3. . - Labs CBC & Chem 7: 10/17/17 05:41 10/17/17 05:41 Labs: Abnormal Lab Results - Last 24 Hours (Table) 10/17/17 Range/Units 05:41 BUN 21 H (9-20) mg/dL Assessment and Plan Plan: Assessment and plan #[address] elevation myocardial infarction, status post angioplasty and stenting of the right coronary artery. Echocardiogram with Doppler study reveals an ejection fraction of 40-45%. #2 hyperlipidemia #3 hypertension Plan From cardiology's perspective, patient may be able to be discharged home today. A follow-up appointment will be made with Dr. Haynes in the office in one week. Patient will be discharged home on aspirin 81 mg daily, Lipitor 80 mg daily, Plavix 75 mg daily, metoprolol 25 mg one tablet by mouth twice a day, lisinopril 5 mg daily and sublingual nitroglycerin as needed for chest pain. DNP note has been reviewed, I agree with a documented findings and plan of care. Patient was seen and examined.
[2017-10-17 12:01] VITALS: BP 126/65; PULSE 52; RESP 18; TEMP 97
[2017-10-17] MEDS: DOXYCYCLINE 50 MG CAP PO SCH (12:22)
--- NOTE | 2017-10-17 13:34 | P.DS ---
Providers Date of admission: 10/14/17 23:43 Attending physician: Efrain Hdz Consults: 10/14/17 23:28 Consult Physician Stat Consulting Provider: Cardiology Crow Consult Reason/Comments: STEMI ACTIVATION COMPLETE Do you want consulting provider notified?: Yes 10/15/17 00:54 Consult Physician Routine Consulting Provider: Catalina Maria Consult Reason/Comments: Post Interventional patient Do you want consulting provider notified?: Already Contacted Primary care physician: [facility] Hospital Course: Patient was admitted for ST elevation microinfarction, underwent stenting of RCA patient is feeling much better now upon exam patient does have bilateral rhonchus breath sounds probably related to bronchitis. Minimal expiratory wheezing was appreciated will obtain a chest x-ray to make sure patient does not have any pneumonic process. Patient will be started on doxepin 100 twice a day for bronchitis along with inhalational steroids and inhalational albuterol and ipratropium. 10/17/2017 Patient had ejection fraction of 40-45% and patient was started on lisinopril patient is euvolemic will not require any diuretic upon discharge for close follow-up with the cardiology as an outpatient. Patient is being discharged today. PHYSICAL EXAMINATION: GENERAL: The patient is alert and oriented x3, not in any acute distress. Well developed, well nourished. HEENT: Pupils are round and equally reacting to light. EOMI. No scleral icterus. No conjunctival pallor. Normocephalic, atraumatic. No pharyngeal erythema. No thyromegaly. CARDIOVASCULAR: S1 and S2 present. No murmurs, rubs, or gallops. PULMONARY: Rhonchorous breath sounds, minimal expiratory wheezing was appreciated ABDOMEN: Soft, nontender, nondistended, normoactive bowel sounds. No palpable organomegaly. MUSCULOSKELETAL: No joint swelling or deformity. EXTREMITIES: No cyanosis, clubbing, or pedal edema. NEUROLOGICAL: Gross neurological examination did not reveal any focal deficits. SKIN: No rashes. Assessment and Plan Plan: -ST elevation myocardial infarction: Patient is presently on Antiplatelet therapy statin lisinopril, patient does have acute systolic dysfunction from acute microinfarction without any pulmonary edema or exacerbation of heart failure -Tracheal bronchitis with a competent of undiagnosed COPD: Patient will be discharged on doxycycline along with Symbicort albuterol and ipratropium -Hypertension -Hyperlipidemia -Depression For above-mentioned chronic medical problems patient will be continued on appropriate home medications Patient Condition at Discharge: Serious Plan - Discharge Summary Discharge Rx Participant: Yes New Discharge Prescriptions: New Aspirin 81 mg PO DAILY #30 chew Atorvastatin [Lipitor] 80 mg PO HS #30 tab Clopidogrel [Plavix] 75 mg PO DAILY #30 tab Lisinopril [Zestril] 5 mg PO DAILY #30 tab Metoprolol Tartrate [Lopressor] 25 mg PO BID #60 tab Nitroglycerin Sl Tabs [Nitrostat] 0.4 mg SUBLINGUAL Q5M PRN #25 tab PRN Reason: Chest Pain Discontinued Lovastatin [Mevacor] 10 mg PO DAILY Hydrochlorothiazide 25 mg PO DAILY Verapamil HCl [Verapamil ER] 180 mg PO DAILY Etodolac [Lodine] 400 mg PO DAILY Enalapril Maleate [Vasotec] 5 mg PO DAILY No Action Tamsulosin [Flomax] 0.4 mg PO DAILY Sertraline [Zoloft] 25 mg PO DAILY Donepezil [Aricept] 10 mg PO DAILY Multivitamin with Iron [Multivitamins with Iron] 1 tab PO DAILY Discharge Medication List Donepezil [Aricept] 10 mg PO DAILY 10/15/17 [History] Multivitamin with Iron [Multivitamins with Iron] 1 tab PO DAILY 10/15/17 [ History] Sertraline [Zoloft] 25 mg PO DAILY 10/15/17 [History] Tamsulosin [Flomax] 0.4 mg PO DAILY 10/15/17 [History] Aspirin 81 mg PO DAILY #30 chew 10/17/17 [Rx] Atorvastatin [Lipitor] 80 mg PO HS #30 tab 10/17/17 [Rx] Clopidogrel [Plavix] 75 mg PO DAILY #30 tab 10/17/17 [Rx] Lisinopril [Zestril] 5 mg PO DAILY #30 tab 10/17/17 [Rx] Metoprolol Tartrate [Lopressor] 25 mg PO BID #60 tab 10/17/17 [Rx] Nitroglycerin Sl Tabs [Nitrostat] 0.4 mg SUBLINGUAL Q5M PRN #25 tab 10/17/17 [Rx ] Follow up Appointment(s)/Referral(s): Lexi Haynes MD [STAFF PHYSICIAN] - 10/27/17 2:00 pm (At [facility] office, across from [facility] in [place]. If any early appoinment opens in [place] or [place] office will call you. ) Rohan Hdez MD [Primary Care Provider] - 10/24/17 11:15 am (Monday) Patient Instructions/Handouts: *Surgery [facility] - After Heart Catheterization - Ultrasound Technologist Sonographer Instructions, Left Heart Catheterization (DC), Heart Healthy Diet (DC) Discharge Disposition: HOME SELF-CARE
== END 2017-10-17 14:43 | disposition home or self-care (01) | DRG 247 ==
LOC: EC 23:25 → SUPCPDRO 23:25 → 6SEL 23:43
PROVIDERS: ADMIT Hospitalist; ATTEND Hospitalist
PROC: B2111ZZ Fluoroscopy of Multiple Coronary Arteries using Low Osmolar Contrast (ICD-10-PCS; principal; 2017-10-15)
PROC: 4A023N7 Measurement of Cardiac Sampling and Pressure, Left Heart, Percutaneous Approach (ICD-10-PCS; principal; 2017-10-15)
PROC: B2151ZZ Fluoroscopy of Left Heart using Low Osmolar Contrast (ICD-10-PCS; principal; 2017-10-15)
PROC: 027035Z Dilation of Coronary Artery, One Artery with Two Drug-eluting Intraluminal Devices, Percutaneous Approach (ICD-10-PCS; principal; 2017-10-15)
DX: I21.19 ST elevation (STEMI) myocardial infarction involving other coronary artery of inferior wall (principal); I50.22 Chronic systolic (congestive) heart failure; I11.0 Hypertensive heart disease with heart failure; J44.0 Chronic obstructive pulmonary disease with (acute) lower respiratory infection; E11.9 Type 2 diabetes mellitus without complications; F03.90 Unspecified dementia, unspecified severity, without behavioral disturbance, psychotic disturbance, mood disturbance, and anxiety; E78.5 Hyperlipidemia, unspecified; F32.9 Major depressive disorder, single episode, unspecified; J40 Bronchitis, not specified as acute or chronic; W19.XXXA Unspecified fall, initial encounter; Y92.009 Unspecified place in unspecified non-institutional (private) residence as the place of occurrence of the external cause; Z79.02 Long term (current) use of antithrombotics/antiplatelets; Z79.899 Other long term (current) drug therapy; Z82.49 Family history of ischemic heart disease and other diseases of the circulatory system; Z87.891 Personal history of nicotine dependence
CPT/HCPCS: 36415; 71045; 71046; 80048; 80053; 82553; 83036; 84484; 85025; 85027; 85610; 85730; 93005; 93306; 93458; 94640; 94760; 96374; 99291

== ENCOUNTER 2017-11-24 15:01 | Inpatient (IN) | payer MEDICARE ==
[2017-11-24] MEDS ORDERED: MORPHINE SULFATE 4 MG/0.8 ML SYRINGE (INJ) IVP STA ×2 (15:04→16:46)
[2017-11-24] MEDS ORDERED: SODIUM CHLORIDE 0.9% 1,000 ML IV STA (15:04)
[2017-11-24] MEDS ORDERED: ONDANSETRON 4 MG/2 ML VIAL IVP STA (15:04)
--- NOTE | 2017-11-24 15:06 | ED ---
General Adult HPI - General Stated complaint: abd pain Time Seen by Provider: 11/24/17 15:04 Source: RN notes reviewed, old records reviewed - History of Present Illness Initial comments: This is a 82-year-old male the ER for evaluation. Patient is a for his severe chest pain severe bowel pain rating to his back. History of similar pain before. Patient states prior pain is related to PA. Patient is very anxious, and severe pain writhing in pain. No prior history of same, sudden onset tonight. Patient also complaining of severe abdominal pain abdominal pain currently, no history of abdominal surgery. - Related Data Home Medications Medication Instructions Recorded Confirmed Donepezil [Aricept] 10 mg PO DAILY 10/15/17 11/24/17 Multivitamin with Iron 1 tab PO DAILY 10/15/17 11/24/17 [Multivitamins with Iron] Sertraline [Zoloft] 25 mg PO HS 10/15/17 11/24/17 Tamsulosin [Flomax] 0.4 mg PO W/SUPPER 10/15/17 11/24/17 Cholecalciferol [Vitamin D3] 1,000 unit PO DAILY 11/24/17 11/24/17 Previous Rx's Medication Instructions Recorded Aspirin 81 mg PO DAILY #30 chew 10/17/17 Atorvastatin [Lipitor] 80 mg PO HS #30 tab 10/17/17 Clopidogrel [Plavix] 75 mg PO DAILY #30 tab 10/17/17 Lisinopril [Zestril] 5 mg PO DAILY #30 tab 10/17/17 Metoprolol Tartrate [Lopressor] 25 mg PO BID #60 tab 10/17/17 Nitroglycerin Sl Tabs [Nitrostat] 0.4 mg SUBLINGUAL Q5M PRN #25 tab 10/17/17 Acetaminophen Tab [Tylenol Tab] 650 mg PO Q4H PRN #30 tablet 12/01/17 Moxifloxacin HCl [Avelox] 400 mg PO DAILY #10 tablet 12/01/17 Allergies Allergy/AdvReac Type Severity Reaction Status Date / Time No Known Allergies Allergy Verified 11/24/17 15:08 Review of Systems ROS Statement: Those systems with pertinent positive or pertinent negative responses have been documented in the HPI. ROS Other: All systems not noted in ROS Statement are negative. Past Medical History Past Medical History: No Reported History History of Any Multi-Drug Resistant Organisms: None Reported Past Surgical History: Back Surgery Additional Past Surgical History / Comment(s): Heart Cath today 10/15 2 stents to the RCA Past Anesthesia/Blood Transfusion Reactions: No Reported Reaction Date of Last Stent Placement:: 10/15/17 Past Psychological History: No Psychological Hx Reported Smoking Status: Former smoker Past Alcohol Use History: Daily - Past Family History Father Family Medical History: Renal Disease Mother Family Medical History: Myocardial Infarction (PA) General Exam General appearance: alert, in no apparent distress, anxious Head exam: Present: atraumatic, normocephalic, normal inspection Eye exam: Present: normal appearance, PERRL, EOMI. Absent: scleral icterus, conjunctival injection, periorbital swelling ENT exam: Present: normal exam, mucous membranes moist Neck exam: Present: normal inspection. Absent: tenderness, meningismus, lymphadenopathy Respiratory exam: Present: normal lung sounds bilaterally. Absent: respiratory distress, wheezes, rales, rhonchi, stridor Cardiovascular Exam: Present: regular rate, normal rhythm, normal heart sounds. Absent: systolic murmur, diastolic murmur, rubs, gallop, clicks GI/Abdominal exam: Present: soft, distended, tenderness, normal bowel sounds. Absent: guarding, rebound, rigid Extremities exam: Present: normal inspection, full ROM, normal capillary refill. Absent: tenderness, pedal edema, joint swelling, calf tenderness Back exam: Present: normal inspection Neurological exam: Present: alert, oriented X3, CN II-XII intact Psychiatric exam: Present: normal affect, normal mood Skin exam: Present: warm, dry, intact, normal color. Absent: rash Course Vital Signs 11/24/17 11/24/17 11/24/17 15:05 16:26 18:39 Temperature 98.6 F 98.7 F 97.4 F L Pulse Rate 87 96 82 Respiratory 22 18 20 Rate Blood Pressure 153/74 143/67 120/72 O2 Sat by Pulse 96 99 95 Oximetry 11/24/17 19:41 Temperature Pulse Rate 88 Respiratory 16 Rate Blood Pressure 122/74 O2 Sat by Pulse 94 L Oximetry - Reevaluation(s) Reevaluation #1: 11/24/17 15:06 Patient with adequate pain control EKG Findings - EKG Comments: EKG Findings:: EKG shows sinus rhythm rate of 81, RI 234, QRS 70, QTc 427 Medical Decision Making - Medical Decision Making 82 male the ER with severe abdominal pain, positive cholecystitis. Patient be admitted for surgical evaluation and treatment - Lab Data Result diagrams: 12/01/17 06:45 12/01/17 06:45 Lab Results 11/24/17 11/24/17 11/24/17 Range/Units 15:15 15:15 15:15 WBC 8.9 (3.8-10.6) k/uL RBC 4.35 (4.30-5.90) m/uL Hgb 13.4 (13.0-17.5) gm/dL Hct 39.7 (39.0-53.0) % MCV 91.4 (80.0-100.0) fL MCH 30.7 (25.0-35.0) pg MCHC 33.6 (31.0-37.0) g/dL RDW 13.0 (11.5-15.5) % Plt Count 353 (150-450) k/uL Neutrophils % 85 % Lymphocytes % 7 % Monocytes % 3 % Eosinophils % 2 % Basophils % 0 % Neutrophils # 7.6 (1.3-7.7) k/uL Lymphocytes # 0.6 L (1.0-4.8) k/uL Monocytes # 0.2 (0-1.0) k/uL Eosinophils # 0.2 (0-0.7) k/uL Basophils # 0.0 (0-0.2) k/uL PT (9.0-12.0) sec INR (<1.2) APTT (22.0-30.0) sec Sodium 143 (137-145) mmol/L Potassium 4.2 (3.5-5.1) mmol/L Chloride 107 (98-107) mmol/L Carbon Dioxide 24 (22-30) mmol/L Anion Gap 12 mmol/L BUN 24 H (9-20) mg/dL Creatinine 0.80 (0.66-1.25) mg/dL Est GFR (CKD-EPI)AfAm >90 (>60 ml/min/1.73 sqM) Est GFR (CKD-EPI)NonAf 82 (>60 ml/min/1.73 sqM) Glucose 117 H (74-99) mg/dL Plasma Lactic Acid Jasbir (0.7-2.0) mmol/L Calcium 9.3 (8.4-10.2) mg/dL Total Bilirubin 0.8 (0.2-1.3) mg/dL AST 47 (17-59) U/L ALT 48 (21-72) U/L Alkaline Phosphatase 101 (38-126) U/L Total Creatine Kinase 35 L (55-170) U/L CK-MB (CK-2) 1.1 (0.0-2.4) ng/mL CK-MB (CK-2) Rel Index 3.1 Troponin I <0.012 (0.000-0.034) ng/mL Total Protein 5.9 L (6.3-8.2) g/dL Albumin 3.1 L (3.5-5.0) g/dL Amylase 56 (30-110) U/L Lipase 71 (23-300) U/L 11/24/17 11/24/17 Range/Units 15:15 15:15 WBC (3.8-10.6) k/uL RBC (4.30-5.90) m/uL Hgb (13.0-17.5) gm/dL Hct (39.0-53.0) % MCV (80.0-100.0) fL MCH (25.0-35.0) pg MCHC (31.0-37.0) g/dL RDW (11.5-15.5) % Plt Count (150-450) k/uL Neutrophils % % Lymphocytes % % Monocytes % % Eosinophils % % Basophils % % Neutrophils # (1.3-7.7) k/uL Lymphocytes # (1.0-4.8) k/uL Monocytes # (0-1.0) k/uL Eosinophils # (0-0.7) k/uL Basophils # (0-0.2) k/uL PT 11.9 (9.0-12.0) sec INR 1.3 H (<1.2) APTT 21.3 L (22.0-30.0) sec Sodium (137-145) mmol/L Potassium (3.5-5.1) mmol/L Chloride (98-107) mmol/L Carbon Dioxide (22-30) mmol/L Anion Gap mmol/L BUN (9-20) mg/dL Creatinine (0.66-1.25) mg/dL Est GFR (CKD-EPI)AfAm (>60 ml/min/1.73 sqM) Est GFR (CKD-EPI)NonAf (>60 ml/min/1.73 sqM) Glucose (74-99) mg/dL Plasma Lactic Acid Jasbir 1.4 (0.7-2.0) mmol/L Calcium (8.4-10.2) mg/dL Total Bilirubin (0.2-1.3) mg/dL AST (17-59) U/L ALT (21-72) U/L Alkaline Phosphatase (38-126) U/L Total Creatine Kinase (55-170) U/L CK-MB (CK-2) (0.0-2.4) ng/mL CK-MB (CK-2) Rel Index Troponin I (0.000-0.034) ng/mL Total Protein (6.3-8.2) g/dL Albumin (3.5-5.0) g/dL Amylase (30-110) U/L Lipase (23-300) U/L - Radiology Data Radiology results: report reviewed (CT abdomen pelvis positive for cholecystitis ), image reviewed Disposition Clinical Impression: Abdominal pain, Acute cholecystitis Disposition: ADMITTED IP TO THIS HOSP Condition: Fair Is patient prescribed a controlled substance at d/c from ED?: No
[2017-11-24] MEDS: RX INFO: IV CONTRAST WAS GIVEN 1 EACH MISC MISCELLANE PRN ×2 (15:28→15:29)
[2017-11-24 15:29] LABS: Basophils % (A) 0 %; Eosinophils # (A) 0.2 k/uL (0-0.7); Eosinophils % (A) 2 %; HCT 39.7 % (39.0-53.0); HGB 13.4 gm/dL (13.0-17.5); Lymphocytes # (A) 0.6 k/uL (1.0-4.8); Lymphocytes % (A) 7 %; MCH 30.7 pg (25.0-35.0); MCHC 33.6 g/dL (31.0-37.0); MCV 91.4 fL (80.0-100.0); Mean Platelet Volume 7.5; Monocytes # (A) 0.2 k/uL (0-1.0); Monocytes % (A) 3 %; Neutrophils # (A) 7.6 k/uL (1.3-7.7); Neutrophils % (A) 85 %; Platelet Count 353 k/uL (150-450); RBC 4.35 m/uL (4.30-5.90); WBC 8.9 k/uL (3.8-10.6)
[2017-11-24 15:39] LABS: INR 1.3 (<1.2); Prothrombin Time 11.9 sec (9.0-12.0)
[2017-11-24 15:44] LABS: ALT 48 U/L (21-72); AST 47 U/L (17-59); Albumin 3.1 g/dL (3.5-5.0); Alkaline Phosphatase 101 U/L (38-126); Amylase 56 U/L (30-110); Anion Gap 12 mmol/L; Blood Urea Nitrogen 24 mg/dL (9-20); Calcium 9.3 mg/dL (8.4-10.2); Carbon Dioxide 24 mmol/L (22-30); Chloride 107 mmol/L (98-107); Glucose 117 mg/dL (74-99); Lipase 71 U/L (23-300); Sodium 143 mmol/L (137-145); Total Bilirubin 0.8 mg/dL (0.2-1.3); Total Protein 5.9 g/dL (6.3-8.2)
[2017-11-24 15:45] LABS: Potassium 4.2 mmol/L (3.5-5.1)
[2017-11-24 15:46] LABS: Partial Thromboplastin Time 21.3 sec (22.0-30.0)
[2017-11-24 15:57] LABS: Creatine Kinase 35 U/L (55-170)
[2017-11-24 16:09] LABS: Creatine Kinase MB 1.1 ng/mL (0.0-2.4); Troponin I <0.012 ng/mL (0.000-0.034)
--- NOTE | 2017-11-24 16:30 | CT ---
EXAMINATION TYPE: CT angio chest DATE OF EXAM: 11/24/2017 COMPARISON: NONE HISTORY: Epigastric pain. CT DLP: 534.2 mGycm CONTRAST: CT chest with contrast and 3D reconstruction with MIP imaging is performed with IV Contrast, patient injected with 100ml mL of Isovue 370. Contrast-enhanced CT of the chest was performed through the course of the pulmonary arteries with vivi g and mediastinal window settings submitted. 3D reconstruction with MIP imaging was also performed. PULMONARY ARTERIES: The pulmonary arteries and their major tributaries are patent. I do not see alonso dence for sizable filling defect to suggest pulmonary embolic process. LUNGS: The lungs are clear and free of infiltrate. No evidence for atelectasis. No pulmonary nodule or mass is detected. No pleural effusion. MEDIASTINUM: Thoracic aorta is of normal caliber,however, evaluation is limited given timing of the contrast bolus. If there is concern for thoracic aortic pathology consider MARTINEZ. Correlate clinicall y . The heart is enlarged. No evidence for mediastinal mass. No mediastinal lymph nodes greater bradley n 1cm. HILAR STRUCTURES: No evidence for mass. No hilar lymph nodes greater than 1 cm. UPPER ABDOMEN: No significant abnormality is seen. IMPRESSION: 1. No evidence for Pulmonary embolism at this time.
--- NOTE | 2017-11-24 16:35 | CT ---
EXAMINATION TYPE: CT abdomen pelvis w con DATE OF EXAM: 11/24/2017 COMPARISON: NONE HISTORY: Epigastric pain. CT DLP: 1770 mGycm CONTRAST: CT scan of the abdomen and pelvis is performed without Oral Contrast and with IV Contrast, patient in jected with 100ml mL of Isovue 370. FINDINGS: LUNG BASES-: No visible nodule. No infiltrate. LIVER/GB: Gallbladder wall thickening measuring 7.5 mm. Pericholecystic fluid collections seen. Per icholecystic inflammatory change. Findings are suspicious for acute cholecystitis. Correlate clinical ly. No space occupying hepatic lesion. Biliary tree is of normal caliber. PANCREAS: No inflammation. No distinct mass. SPLEEN: No splenic enlargement. No lesion seen. ADRENALS: No nodule. No thickening. KIDNEYS/BLADDER: No hydronephrosis. Nonobstructing nephrolithiasis appreciated. No distinct renal ma ss. Urinary bladder grossly unremarkable. BOWEL: Wall thickening of the duodenum adjacent to the gallbladder may be reactive in nature. Underly ing inflammatory process of the duodenum is difficult to exclude. No evidence for pneumoperitoneum. S mall bowel ileus noted. Left inguinal hernia containing 2 or 3 segments of small bowel. Correlate for incarcerated hernia. Distal bowel loops appear to be decompressed. GENITAL ORGANS: No gross abnormality. LYMPH NODES: No greater than 1cm abdominal or pelvic lymph nodes are appreciated. AORTA: No significant abnormality. OSSEOUS STRUCTURES: Severe degenerative change lumbar spine. Postoperative changes noted.. OTHER: No significant additional abnormality is seen. IMPRESSION: 1. Findings suggestive of acute cholecystitis. Correlate clinically. 2. Probable reactive wall thickening involving the duodenum. 3. Left inguinal hernia with incarceration difficult to exclude. Proximal small bowel distention may be on the basis of ileus or partial obstruction.
[2017-11-24] MEDS ORDERED: AMPICILLIN-SULBACTAM 3 GM in SODIUM CHLORIDE 0.9% 100 ML IVPB STA (16:36)
[2017-11-24] MEDS ORDERED: SODIUM CHLORIDE 0.9% 1,000 ML IV ONE (16:38)
[2017-11-24] MEDS ORDERED: ACETAMINOPHEN IV (For NPO) 1,000 MG in EMPTY BAG 1 BAG IVPB STA (16:46)
[2017-11-24] MEDS ORDERED: KETOROLAC 30 MG/ML 1 ML VIAL IVP STA (16:46)
--- NOTE | 2017-11-24 17:29 | US ---
EXAMINATION TYPE: US gallbladder DATE OF EXAM: 11/24/2017 COMPARISON: CT 11/24/2017 CLINICAL HISTORY: Pain. EXAM MEASUREMENTS: Liver Length: 18.3 cm Gallbladder Wall: 1.0 cm CBD: 0.7 cm Right Kidney: 10.9 x 6.0 x 5.8 cm Pancreas: Obscured by bowel gas Liver: Enlarged, heterogeneous Gallbladder: Gallbladder wall is thickened with pericholecystic fluid. Sludge visualized. Stone visu alized within gallbladder neck Evidence for sonographic Green's sign: Yes CBD: Normal size for age. distal portion obscured by bowel gas Right Kidney: No hydronephrosis or masses seen IMPRESSION: There is irregular wall thickening of the gallbladder with echogenic bile and this stone at the gallbladder neck. This is consistent with acute and chronic cholecystitis. Common bile duct is 7 mm. No dilation seen of the intrahepatic bile ducts.
[2017-11-24] MEDS: MORPHINE SULFATE 4 MG/0.8 ML SYRINGE (INJ) IVP PRN (22:04)
[2017-11-24] MEDS: AMPICILLIN-SULBACTAM 3 GM in SODIUM CHLORIDE 0.9% 100 ML IVPB SCH (23:42)
[2017-11-25] MEDS: MORPHINE SULFATE 4 MG/0.8 ML SYRINGE (INJ) IVP PRN ×3 (04:10→16:02)
[2017-11-25] MEDS: AMPICILLIN-SULBACTAM 3 GM in SODIUM CHLORIDE 0.9% 100 ML IVPB SCH ×4 (05:49→23:47)
[2017-11-25] MEDS ORDERED: METOPROLOL TARTRATE 25 MG TAB PO STA (08:49)
--- NOTE | 2017-11-25 09:08 | P.GSHP ---
History of Present Illness H&P Date: 11/25/17 Chief Complaint: Acute cholecystitis Patient comes in the ER yesterday because of pain in the epigastric region and chest radiating into his back. He apparently was writhing in pain in the ER and was very anxious. ER physician told me that he appeared confused initially. Pain began rather recently in the last day or so. Patient was very tender in the epigastric and right upper quadrant region. He had a CAT scan and subsequent ultrasound which showed a thickened gallbladder wall with a large stone in the neck of the gallbladder and some surrounding fluid as well suspicious for acute gangrenous cholecystitis. Labs show a normal white blood cell count. Liver enzymes are normal. Lactic acid was normal. Patient has a recent history of acute PA in mid September. He underwent cardiac catheterization with stent placement. He took his last dose of Plavix and aspirin yesterday. - Review of Systems Comment: The patient denies any acute changes in vision or hearing, no dysphagia or odynophagia, no chest pain or shortness of breath, no dysuria or hematuria, no headache, no runny nose, no rectal bleeding or melena, no unexplained weight loss Past Medical History Past Medical History: No Reported History History of Any Multi-Drug Resistant Organisms: None Reported Past Surgical History: Back Surgery Additional Past Surgical History / Comment(s): Heart Cath today 10/15 2 stents to the RCA Past Anesthesia/Blood Transfusion Reactions: No Reported Reaction Date of Last Stent Placement:: 10/15/17 Past Psychological History: No Psychological Hx Reported Smoking Status: Former smoker Past Alcohol Use History: Daily Additional Past Alcohol Use History / Comment(s): states 2 light beers/day Past Drug Use History: None Reported - Past Family History Father Family Medical History: Renal Disease Mother Family Medical History: Myocardial Infarction ([place]) Medications and Allergies Home Medications Medication Instructions Recorded Confirmed Type Donepezil [Aricept] 10 mg PO DAILY 10/15/17 11/24/17 History Multivitamin with Iron 1 tab PO DAILY 10/15/17 11/24/17 History [Multivitamins with Iron] Sertraline [Zoloft] 25 mg PO HS 10/15/17 11/24/17 History Tamsulosin [Flomax] 0.4 mg PO W/SUPPER 10/15/17 11/24/17 History Aspirin 81 mg PO DAILY #30 chew 10/17/17 11/24/17 Rx Atorvastatin [Lipitor] 80 mg PO HS #30 tab 10/17/17 11/24/17 Rx Clopidogrel [Plavix] 75 mg PO DAILY #30 tab 10/17/17 11/24/17 Rx Lisinopril [Zestril] 5 mg PO DAILY #30 tab 10/17/17 11/24/17 Rx Metoprolol Tartrate [Lopressor] 25 mg PO BID #60 tab 10/17/17 11/24/17 Rx Nitroglycerin Sl Tabs [Nitrostat] 0.4 mg SUBLINGUAL Q5M PRN #25 tab 10/17/17 Rx Cholecalciferol [Vitamin D3] 1,000 unit PO DAILY 11/24/17 11/24/17 History Allergies Allergy/AdvReac Type Severity Reaction Status Date / Time No Known Allergies Allergy Verified 11/24/17 15:08 Surgical - Exam Vital Signs Temp Pulse Resp BP Pulse Ox 98.6 F 87 22 153/74 96 11/24/17 15:05 11/24/17 15:05 11/24/17 15:05 11/24/17 15:05 11/24/17 15:05 Physical exam: General: Well-developed, well-nourished HEENT: Normocephalic, sclerae nonicteric Abdomen: Epigastric and right upper quadrant tenderness, positive Green sign, mild distention Extremities: No edema Neuro: Alert and oriented Results - Labs 11/24/17 15:15 11/24/17 15:15 Abnormal Lab Results - Last 24 Hours (Table) 11/24/17 11/24/17 11/24/17 Range/Units 15:15 15:15 15:15 Lymphocytes # 0.6 L (1.0-4.8) k/uL INR (<1.2) APTT (22.0-30.0) sec BUN 24 H (9-20) mg/dL Glucose 117 H (74-99) mg/dL Total Creatine Kinase 35 L (55-170) U/L Total Protein 5.9 L (6.3-8.2) g/dL Albumin 3.1 L (3.5-5.0) g/dL 11/24/17 Range/Units 15:15 Lymphocytes # (1.0-4.8) k/uL INR 1.3 H (<1.2) APTT 21.3 L (22.0-30.0) sec BUN (9-20) mg/dL Glucose (74-99) mg/dL Total Creatine Kinase (55-170) U/L Total Protein (6.3-8.2) g/dL Albumin (3.5-5.0) g/dL Diabetes panel 11/24/17 Range/Units 15:15 Sodium 143 (137-145) mmol/L Potassium 4.2 (3.5-5.1) mmol/L Chloride 107 (98-107) mmol/L Carbon Dioxide 24 (22-30) mmol/L BUN 24 H (9-20) mg/dL Creatinine 0.80 (0.66-1.25) mg/dL Glucose 117 H (74-99) mg/dL Calcium 9.3 (8.4-10.2) mg/dL AST 47 (17-59) U/L ALT 48 (21-72) U/L Alkaline Phosphatase 101 (38-126) U/L Total Protein 5.9 L (6.3-8.2) g/dL Albumin 3.1 L (3.5-5.0) g/dL Calcium panel 11/24/17 Range/Units 15:15 Calcium 9.3 (8.4-10.2) mg/dL Albumin 3.1 L (3.5-5.0) g/dL Pituitary panel 11/24/17 Range/Units 15:15 Sodium 143 (137-145) mmol/L Potassium 4.2 (3.5-5.1) mmol/L Chloride 107 (98-107) mmol/L Carbon Dioxide 24 (22-30) mmol/L BUN 24 H (9-20) mg/dL Creatinine 0.80 (0.66-1.25) mg/dL Glucose 117 H (74-99) mg/dL Calcium 9.3 (8.4-10.2) mg/dL Adrenal panel 11/24/17 Range/Units 15:15 Sodium 143 (137-145) mmol/L Potassium 4.2 (3.5-5.1) mmol/L Chloride 107 (98-107) mmol/L Carbon Dioxide 24 (22-30) mmol/L BUN 24 H (9-20) mg/dL Creatinine 0.80 (0.66-1.25) mg/dL Glucose 117 H (74-99) mg/dL Calcium 9.3 (8.4-10.2) mg/dL Total Bilirubin 0.8 (0.2-1.3) mg/dL AST 47 (17-59) U/L ALT 48 (21-72) U/L Alkaline Phosphatase 101 (38-126) U/L Total Protein 5.9 L (6.3-8.2) g/dL Albumin 3.1 L (3.5-5.0) g/dL Assessment and Plan (1) Acute cholecystitis Narrative/Plan: Patient's cardiac history was reviewed with him and I also consulted cardiology this morning. They have already assessed the patient. The patient is clearly high-risk for surgery however it has been over one month since his PA and he is on Plavix and aspirin currently. The options were discussed with the patient regarding cholecystectomy at this time versus cholecystostomy tube placement. Given the degree of tenderness in the fluid seen adjacent to the gallbladder I am concerned about the possibility of gallbladder perforation and significant gangrene that may not respond well to cholecystostomy tube placement. We have decided to proceed with cholecystectomy laparoscopic, possible open at this time. We'll have platelets available if necessary for transfusion purposes. We 'll plan ICU care postoperatively. Risks of bleeding, infection, bile leak, conversion to an open procedure, bile duct injury, trocar injury, retained common bile duct stone, cardiac and respiratory complications, and were reviewed. The patient and his understand and wish to proceed. Current Visit: Yes Status: Acute Code(s): K81.0 - ACUTE CHOLECYSTITIS SNOMED Code(s): 87121490
--- NOTE | 2017-11-25 09:42 | CONS ---
CONSULTATION This patient's medical records and the chart was reviewed. He is an 82-year-old gentleman came to the emergency room with complaint of abdominal pain and shoulder pain. Patient is found to acute gangrenous cholecystitis. Patient needs to have surgery. Patient recently came with an acute inferior wall myocardial infarction and underwent a stent to the RCA, has not been having any chest pain since then. Patient does not have any history of congestive cardiac failure. There is no history of diabetes and there is no prior history of stroke. PAST MEDICAL HISTORY: Includes history of back surgery. Recent myocardial infarction. PHYSICAL EXAMINATION: At present reveals 82-year-old gentleman who is not in any acute distress. The patient is in the emergency room, was afebrile, oxygen saturation was 99%. Heart rate at present is 85 per minute, blood pressure is 124/80 mmHg. HEENT examination is negative. NECK: Supple. There is no increase in jugular venous pressure. Both the carotid pulses are felt. There is no bruit. Chest is symmetrical. Heart the PMI is not felt. First and second heart sounds are normal. Lungs are clinically clear to auscultation and percussion. ABDOMEN: Soft. There is a generalized tenderness noted. Bowel sounds are hypoactive. Extremities: Peripheral pulses 2+. EKG shows T-wave old inferior wall myocardial infarction. The echocardiogram done during the last admission showed ejection fraction of 40-45%. A chest x-ray at present, does not show any evidence of congestive cardiac failure. The patient's creatinine is 0.8. INR is 1.3. Hemoglobin is 13.4. FINAL IMPRESSION: This patient has presented with abdominal pain. The CT scan and the ultrasound of the abdomen is suggestive for acute gangrenous cholecystitis. This patient is status post recent inferior wall myocardial infarction with stent to the RCA. Patient's condition discussed with Dr. Blanchard. The patient does carry increased risk of surgery because of his recent myocardial infarction but at least he is 4 weeks away out of his acute [place]. Patient does carry a high risk surgery. However we do not have much choice in view of the possible gangrenous colitis with impending rupture. Condition was discussed with the patient as well as the . We will proceed with the surgery. If there is any problem of bleeding, the patient will be given platelets during surgery and we will resume the Plavix in the postop period. His last dose of Plavix was yesterday. We will observe the patient in ICU for 24-48 hours. MMODL / IJN: [id number] /
[2017-11-25] MEDS: HEPARIN SODIUM,PORCINE 5,000 UNIT/ML 1 ML VIAL SQ SCH ×3 (10:32→23:47)
[2017-11-25] MEDS ORDERED: SODIUM CHLORIDE 0.9% 1,000 ML IV ONE (12:12)
[2017-11-25] MEDS ORDERED: SUCCINYLCHOLINE CHLORIDE 100 MG/5 ML SYR IV ONE (12:12)
[2017-11-25] MEDS ORDERED: GLYCOPYRROLATE 0.2 MG/ML 2 ML VIAL ONE (12:12)
[2017-11-25] MEDS ORDERED: fentaNYL (PF) 50 MCG/ML 2 ML AMP ONE (12:12)
[2017-11-25] MEDS ORDERED: ONDANSETRON 4 MG/2 ML VIAL ONE (12:12)
[2017-11-25] MEDS ORDERED: ROCURONIUM BROMIDE 10 MG/ML 10 ML VIAL IV ONE (12:12)
[2017-11-25] MEDS ORDERED: NEOSTIGMINE 1 MG/ML 10 ML VIAL ONE (12:12)
[2017-11-25] MEDS ORDERED: PROPOFOL 10 MG/ML 20 ML VIAL IV ONE (12:12)
[2017-11-25] MEDS ORDERED: LIDOCAINE 1% INJ 10MG/ML (20 ML MDV) ONE (12:12)
[2017-11-25] MEDS ORDERED: PHENYLEPHRINE-0.9% NACL SYG 1 MG/10 ML SYRINGE ONE (12:12)
[2017-11-25] MEDS ORDERED: LACTATED RINGERS 1,000 ML IV ONE ×2 (12:35)
[2017-11-25] MEDS ORDERED: BUPIVACAINE (PF) 0.25% 30 ML VIAL SQ ONE ×2 (13:05)
--- NOTE | 2017-11-25 14:33 | P.OP ---
Date of Procedure: 11/25/17 Procedure(s) Performed: PREOPERATIVE DIAGNOSIS: Acute cholecystitis POSTOPERATIVE DIAGNOSIS: Gangrenous perforated calculus cholecystitis PROCEDURE: Laparoscopy with open cholecystectomy SURGEON: Lo SEPULVEDA: Lui EBL: 50 mL ANESTHESIA: Gen. COMPLICATIONS: None OPERATIVE PROCEDURE: The patient was brought and placed on the operating room table in the supine position. The patient was placed under general anesthesia at that time. The abdomen was prepped and draped in the usual sterile fashion. A small curvilinear infraumbilical incision was made. The fascia was grasped with the Donovan forceps. The fascia was retracted anteriorly. The Veress needle was advanced into the peritoneal cavity. The saline drop test was normal. Insufflation took place up to 15 mmHg. A 5 mm optical trocar was advanced and the peritoneal cavity. The patient had some loose adhesions between the omentum the transverse colon and the abdominal wall. There was bilious fluid seen behind the loose adhesions. A 12 mm trocar was placed in the epigastrium under direct visualization. Using the pusher was able to loosen up some of these adhesions and quickly identified diffuse bilious fluid throughout the upper abdomen. I was not able to visualize the gallbladder. I converted to open procedure at this point. The trochars were removed. A right subcostal incision was made using the scalpel. Dissection through the subcutaneous fat fascia and musculature took place using the cautery. The Bookwalter retractor was utilized. The patient's gallbladder was necrotic. There were at least 2 sites of perforation with both purulent fluid and bile emanating from these openings. There was one large stone within the gallbladder. Thankfully there was no evidence of fistula formation or ulceration of the duodenum. Blunt dissection took place at the infundibulum. I was not satisfied that I visualized the cystic duct and decided to remove the gallbladder from the fundus down. This took place using electrocautery and blunt dissection. As we approached the region of the cystic artery further blunt dissection took place revealing a small vessel that was clipped. Further blunt dissection took place revealing the site of the cystic duct. Thankfully the cystic duct was free of necrotic changes. This was divided using a 0 silk stitch and a 12 mm clip. An additional small vessel was seen and clipped as well. The gallbladder was sent off to pathology at that point. It should be noted that cultures were taken of the purulent fluid at the onset of the case. Copious irrigation of the entire perineal cavity took place using approximately 8 L of saline. No further bilious fluid was seen. The fascia was closed in 2 layers using double stranded #1 PDS sutures. I did place a drain in the gallbladder fossa exiting from the right upper quadrant. I took the drain all the way across to the left upper quadrant where there was a large volume of bile initially. The drain was sutured in place using a 3-0 silk stitch. The skin was closed using chandni. 3 separate openings were left for gabriel which were placed and were Telfa. Sterile dressings were then applied. At the end of this procedure the sponge and needle counts were correct. DISPOSITION: Stable to the recovery room
[2017-11-25] MEDS ORDERED: KETOROLAC 30 MG/ML 1 ML VIAL IVP ONE (14:42)
[2017-11-25] MEDS ORDERED: ACETAMINOPHEN IV (For NPO) 1,000 MG/100 ML VIAL IVPB ONE (14:53)
[2017-11-25] MEDS ORDERED: ONDANSETRON 4 MG/2 ML VIAL IVP PRN (14:58)
[2017-11-25] MEDS ORDERED: NALOXONE 0.4 MG/ML 1 ML VIAL IV PRN (14:58)
[2017-11-25] MEDS ORDERED: MORPHINE SULFATE 4 MG/0.8 ML SYRINGE (INJ) IVP PRN (14:58)
[2017-11-25] MEDS ORDERED: METOCLOPRAMIDE 5 MG/ML 2 ML VIAL IVP PRN (14:58)
[2017-11-25] MEDS ORDERED: fentaNYL (PF) 50 MCG/ML 2 ML AMP IVP ONE (15:09)
--- NOTE | 2017-11-25 15:35 | P.CNPUL ---
History of Present Illness Consult date: 11/25/17 Reason for consult: other Chief complaint: Status post open cholecystectomy for perforated gallbladder History of present illness: Consult dated 11/25/2017 82-year-old male who presented to the emergency department with pain in the abdomen. He actually describes pain in the chest initially. His seemed to radiate to the back. He was discovered to have a perforated gallbladder. He went to the operating room today. The patient was on Plavix. The patient had an open cholecystectomy. There was a perforated gallbladder. There was bile throughout the abdominal cavity. The surgery was done by Dr. Luis Elias. He's back in the ICU for observation. The patient will have a [place] catheter placed. We'll provide him pain control. The patient be on oxygen therapy. We' ll give him some IV fluids. Additional recommendations and suggestions are forthcoming. Based on his home medications, he has a history of recent heart catheterization with 2 stents placed in the right coronary artery. She was on Plavix. He also has a history of hypertension in addition to the coronary artery disease, dementia, depression, and BPH. Also appears to have vitamin D deficiency. Also has a history of hyperlipidemia. His home medications included Aricept multivitamins of Zoloft Flomax vitamin D3 aspirin Lipitor Plavix lisinopril metoprolol and sublingual nitroglycerin. ALLERGIES are denied. Review of Systems Review of systems cannot be obtained. He's very lethargic and sleepy from his surgery. He was extubated in recovery room. The patient is awake and alert though. Complaining of pain. He did receive some narcotic recently which makes his review of systems difficult to obtain. Past Medical History Past Medical History: No Reported History History of Any Multi-Drug Resistant Organisms: None Reported Past Surgical History: Back Surgery Additional Past Surgical History / Comment(s): Heart Cath today 10/15 2 stents to the RCA Past Anesthesia/Blood Transfusion Reactions: No Reported Reaction Date of Last Stent Placement:: 10/15/17 Past Psychological History: No Psychological Hx Reported Smoking Status: Former smoker Past Alcohol Use History: Daily Additional Past Alcohol Use History / Comment(s): states 2 light beers/day Past Drug Use History: None Reported - Past Family History Father Family Medical History: Renal Disease Mother Family Medical History: Myocardial Infarction ([place]) Medications and Allergies Home Medications Medication Instructions Recorded Confirmed Type Donepezil [Aricept] 10 mg PO DAILY 10/15/17 11/24/17 History Multivitamin with Iron 1 tab PO DAILY 10/15/17 11/24/17 History [Multivitamins with Iron] Sertraline [Zoloft] 25 mg PO HS 10/15/17 11/24/17 History Tamsulosin [Flomax] 0.4 mg PO W/SUPPER 10/15/17 11/24/17 History Aspirin 81 mg PO DAILY #30 chew 10/17/17 11/24/17 Rx Atorvastatin [Lipitor] 80 mg PO HS #30 tab 10/17/17 11/24/17 Rx Clopidogrel [Plavix] 75 mg PO DAILY #30 tab 10/17/17 11/24/17 Rx Lisinopril [Zestril] 5 mg PO DAILY #30 tab 10/17/17 11/24/17 Rx Metoprolol Tartrate [Lopressor] 25 mg PO BID #60 tab 10/17/17 11/24/17 Rx Nitroglycerin Sl Tabs [Nitrostat] 0.4 mg SUBLINGUAL Q5M PRN #25 tab 10/17/17 Rx Cholecalciferol [Vitamin D3] 1,000 unit PO DAILY 11/24/17 11/24/17 History Allergies Allergy/AdvReac Type Severity Reaction Status Date / Time No Known Allergies Allergy Verified 11/24/17 15:08 Physical Exam Osteopathic Statement: *. No significant issues noted on an osteopathic structural exam other than those noted in the History and Physical/Consult. Vitals: Vital Signs Temp Pulse Pulse Resp BP BP Pulse Ox 11/25/17 15:00 100 16 138/72 94 L 11/25/17 14:45 108 H 16 144/78 97 11/25/17 09:24 98.1 F 99 16 124/80 95 11/25/17 07:00 98.1 F 99 16 124/80 95 11/25/17 02:15 97.7 F 86 16 116/63 96 11/25/17 00:10 16 11/24/17 21:43 97.7 F 68 16 98/63 97 11/24/17 20:25 68 16 11/24/17 19:41 88 16 122/74 94 L 11/24/17 18:39 97.4 F L 82 20 120/72 95 11/24/17 16:26 98.7 F 96 18 143/67 99 Intake and Output 11/25/17 11/25/17 11/25/17 06:59 14:59 22:59 Intake Total 1200 1945 Output Total 540 50 Balance 660 1895 Intake: IV 1300 Intake, IV Titration 1200 350 Amount ACETAMINOPHEN IV (For NPO 200 ) 1,000 mg In Empty Bag 1 bag @ 400 mls/hr IVPB ONCE STA Rx#:[id number] Ampicillin-Sulbactam 3 gm 200 In Sodium Chloride 0.9% 100 ml @ 100 mls/hr IVPB Q6HR [facility] Rx#:[id number] Sodium Chloride 0.9% 1, 800 000 ml @ 100 mls/hr IV . Q10H ONE Rx#:[id number] Sodium Chloride 0.9% 1, 350 000 ml As IV .STK-MED ONE Rx#:[id number] Oral 0 5 Blood Product 290 Platelet Pheresis Acda2 290 Unit [id number] Output: Urine 540 Straight 200 Estimated Blood Loss 50 Other: # Voids 3 Complaining of pain to this incision site, lethargic and somnolent and moaning. Nasal O2 in place. HEENT examination is grossly unremarkable. Mucous membranes are moist. No oral lesions. Neck supple. Full range of motion. No adenopathy thyromegaly or neck vein distention. Cardiovascular examination reveals regular rhythm rate. S1-S2 normal. No S3 or S4. No discernible murmur noted. Lungs reveal few scattered rhonchi. Breath sounds are equal. No wheezes or crackles. Abdomen tender on palpation. Large dressing is noted in the right side of the upper abdomen. No bowel sounds are heard. Extremities are intact. No cyanosis clubbing or edema. Skin is without rash or lesion. Neurologic examination could not be adequately assessed. Results - Laboratory Findings CBC and BMP: 11/24/17 15:15 11/24/17 15:15 PT/INR, D-dimer PT 11.9 sec (9.0-12.0) 11/24/17 15:15 INR 1.3 (<1.2) H 11/24/17 15:15 Abnormal lab findings: Abnormal Labs 11/24/17 11/24/17 11/24/17 15:15 15:15 15:15 Lymphocytes # 0.6 L INR APTT BUN 24 H Glucose 117 H Total Creatine Kinase 35 L Total Protein 5.9 L Albumin 3.1 L 11/24/17 15:15 Lymphocytes # INR 1.3 H APTT 21.3 L BUN Glucose Total Creatine Kinase Total Protein Albumin - Diagnostic Findings Chest x-ray: image reviewed (Labs x-rays a medications are all reviewed.) Assessment and Plan Assessment: Assessment Status post open cholecystectomy, for perforated gallbladder, postop day #0 History of hypertension History of hyperlipidemia History of CAD with recent catheterization and stent placements to the right coronary artery History of vitamin D deficiency Dementia by history BPH by history Plan: Plan dated 11/25/2017 The patient will be provided nasal O2. We'll also encourage the patient has deep breathing coughing clearing secretions. In addition, we will start the patient on incentive spirometer. The patient some IV fluids and antibiotics. He will also get pain control. Continue to watch patient closely. Likely, if the patient does well, he'll be able to be discharged out of here tomorrow. Time with Patient: Greater than 30
[2017-11-25 15:45] LABS: Glucose,Whole Blood 84 mg/dL (75-99)
[2017-11-25] MEDS: KETOROLAC 30 MG/ML 1 ML VIAL IVP SCH ×2 (16:02→20:16)
[2017-11-25] MEDS: ACETAMINOPHEN IV (For NPO) 1,000 MG in EMPTY BAG 1 BAG IVPB SCH ×2 (16:04→23:47)
--- NOTE | 2017-11-25 16:36 | P.CONS ---
History of Present Illness - Chief Complaint Abdominal pain - History of Present Illness This is a pleasant 82 years old lady with past medical history of back surgery heart cath who presents because of upper abdominal pain radiating to the back she underwent CAT scan and ultrasound of the gastrointestinal tract and showing acute cholecystitis with large gallstone primary surgical team admitted the patient for surgical cholecystectomy, patient is found to have perforated gallbladder and there was mild throughout the whole abdominal cavity, patient was admitted to the intensive care unit for further care, pulmonary consultation on the case Past Medical History Past Medical History: No Reported History History of Any Multi-Drug Resistant Organisms: None Reported Past Surgical History: Back Surgery Additional Past Surgical History / Comment(s): Heart Cath today 10/15 2 stents to the RCA Past Anesthesia/Blood Transfusion Reactions: No Reported Reaction Date of Last Stent Placement:: 10/15/17 Past Psychological History: No Psychological Hx Reported Smoking Status: Former smoker Past Alcohol Use History: Daily Additional Past Alcohol Use History / Comment(s): states 2 light beers/day Past Drug Use History: None Reported - Past Family History Father Family Medical History: Renal Disease Mother Family Medical History: Myocardial Infarction (CT) Medications and Allergies Home Medications Medication Instructions Recorded Confirmed Type Donepezil [Aricept] 10 mg PO DAILY 10/15/17 11/24/17 History Multivitamin with Iron 1 tab PO DAILY 10/15/17 11/24/17 History [Multivitamins with Iron] Sertraline [Zoloft] 25 mg PO HS 10/15/17 11/24/17 History Tamsulosin [Flomax] 0.4 mg PO W/SUPPER 10/15/17 11/24/17 History Aspirin 81 mg PO DAILY #30 chew 10/17/17 11/24/17 Rx Atorvastatin [Lipitor] 80 mg PO HS #30 tab 10/17/17 11/24/17 Rx Clopidogrel [Plavix] 75 mg PO DAILY #30 tab 10/17/17 11/24/17 Rx Lisinopril [Zestril] 5 mg PO DAILY #30 tab 10/17/17 11/24/17 Rx Metoprolol Tartrate [Lopressor] 25 mg PO BID #60 tab 10/17/17 11/24/17 Rx Nitroglycerin Sl Tabs [Nitrostat] 0.4 mg SUBLINGUAL Q5M PRN #25 tab 10/17/17 Rx Cholecalciferol [Vitamin D3] 1,000 unit PO DAILY 11/24/17 11/24/17 History Allergies Allergy/AdvReac Type Severity Reaction Status Date / Time No Known Allergies Allergy Verified 11/24/17 15:08 Physical Exam Vitals: Vital Signs Temp Pulse Pulse Resp BP BP Pulse Ox 11/25/17 15:00 100 16 138/72 94 L 11/25/17 14:45 108 H 16 144/78 97 11/25/17 09:24 98.1 F 99 16 124/80 95 11/25/17 07:00 98.1 F 99 16 124/80 95 11/25/17 02:15 97.7 F 86 16 116/63 96 11/25/17 00:10 16 11/24/17 21:43 97.7 F 68 16 98/63 97 11/24/17 20:25 68 16 11/24/17 19:41 88 16 122/74 94 L 11/24/17 18:39 97.4 F L 82 20 120/72 95 11/24/17 16:26 98.7 F 96 18 143/67 99 Intake and Output 11/25/17 11/25/17 11/25/17 06:59 14:59 22:59 Intake Total 1200 1945 Output Total 540 50 Balance 660 1895 Intake: IV 1300 Intake, IV Titration 1200 350 Amount ACETAMINOPHEN IV (For NPO 200 ) 1,000 mg In Empty Bag 1 bag @ 400 mls/hr IVPB [facility] Rx#:[id number] Ampicillin-Sulbactam 3 gm 200 In Sodium Chloride 0.9% 100 ml @ 100 mls/hr IVPB Q6HR [facility] Rx#:[id number] Sodium Chloride 0.9% 1, 800 000 ml @ 100 mls/hr IV . Q10H [facility] Rx#:[id number] Sodium Chloride 0.9% 1, 350 000 ml As IV .STK-MED ONE Rx#:[id number] Oral 0 5 Blood Product 290 Platelet Pheresis Acda2 290 Unit [id number] Output: Urine 540 Straight 200 Estimated Blood Loss 50 Other: # Voids 3 Results CBC & Chem 7: 11/24/17 15:15 11/24/17 15:15 Assessment and Plan Assessment: Status post open cholecystectomy for perforated gallbladder postop day #0 Hypertension History of coronary artery disease status post cardiac cath Plan: Patient is admitted to the intensive care unit for further care insurance writer consult is appreciated, patient's vitals looks stable with temporal tachypnea, patient is already on Unasyn and GI and DVT prophylaxis, continue with pain treatment Discussed with the and daughter at bedside family they want the patient to be DO NOT RESUSCITATE , DO NOT INTUBATE Prognosis is guarded given the severity of his condition and advanced age and other comorbid
[2017-11-25 16:46] LABS: Anion Gap 14 mmol/L; Blood Urea Nitrogen 25 mg/dL (9-20); Calcium 8.6 mg/dL (8.4-10.2); Carbon Dioxide 23 mmol/L (22-30); Chloride 111 mmol/L (98-107); Glucose 86 mg/dL (74-99); Phosphorus 4.2 mg/dL (2.5-4.5); Potassium 4.1 mmol/L (3.5-5.1); Sodium 148 mmol/L (137-145)
[2017-11-25 16:52] LABS: HGB 14.1 gm/dL (13.0-17.5); MCH 31.2 pg (25.0-35.0); MCHC 32.8 g/dL (31.0-37.0); MCV 95.2 fL (80.0-100.0); Mean Platelet Volume 8.2; Platelet Count 391 k/uL (150-450); RBC 4.51 m/uL (4.30-5.90); RDW 13.1 % (11.5-15.5); WBC 20.2 k/uL (3.8-10.6)
[2017-11-25 17:07] LABS: Band Neutrophils % 21 %; Crenated RBC Present; Metamyelocytes # (M) 0.61 k/uL (0); Metamyelocytes % 3 %; Myelocytes % 1 %; Neutrophils % (M) 74 %; Nucleated Red Blood Cells 0 /100 WBC (0-0); Poikilocytosis (M) Present; Total Cells Counted 200
[2017-11-25 17:22] LABS: Appearance,Urine Cloudy (Clear); Bacteria,Urine Rare /hpf; Bilirubin,Urine 1+ (Negative); Blood,Urine Trace (Negative); Cellular Casts,Urine 7 /lpf (0); Color,Urine Dark Brown; Glucose,Urine (UA) Negative (Negative); Granular Casts,Urine 21 /lpf (0); Hyaline Casts,Urine 9 /lpf (0-2); Ketones,Urine Trace (Negative); Leukocyte Esterase,Urine Negative (Negative); Mucus,Urine Rare /hpf; Nitrite,Urine Negative (Negative); PH, Urine 5.5 (5.0-8.0); Protein,Urine 1+ (Negative); RBC,Urine 12 /hpf (0-5); Specific Gravity,Urine 1.044 (1.001-1.035); Squamous Epithelial Cell,Urine <1 /hpf (0-4); WBC,Urine 4 /hpf (0-5)
[2017-11-25] MEDS ORDERED: METOPROLOL TARTRATE 5 MG/5 ML VIAL IVP PRN (19:24)
[2017-11-25] MEDS: D5-0.45% NACL WITH KCL 20MEQ/L 1,000 ML IV SCH (19:49)
[2017-11-25] MEDS: FAMOTIDINE 20 MG/2 ML VIAL IV SCH (20:17)
[2017-11-25] MEDS ORDERED: SODIUM CHLORIDE 0.9% 500 ML IV ONE (23:45)
[2017-11-26] MEDS: KETOROLAC 30 MG/ML 1 ML VIAL IVP SCH ×4 (03:14→21:57)
[2017-11-26 05:02] LABS: Albumin 2.2 g/dL (3.5-5.0); Calcium 8.2 mg/dL (8.4-10.2); Magnesium 2.2 mg/dL (1.6-2.3); Potassium 4.4 mmol/L (3.5-5.1); Total Bilirubin 0.4 mg/dL (0.2-1.3); Total Protein 4.2 g/dL (6.3-8.2)
[2017-11-26 05:05] LABS: Basophils % (A) 0 %; Eosinophils % (A) 0 %; HCT 36.6 % (39.0-53.0); HGB 11.9 gm/dL (13.0-17.5); Lymphocytes # (A) 0.5 k/uL (1.0-4.8); Lymphocytes % (A) 2 %; MCH 30.4 pg (25.0-35.0); MCHC 32.4 g/dL (31.0-37.0); MCV 93.8 fL (80.0-100.0); Mean Platelet Volume 7.4; Monocytes # (A) 0.3 k/uL (0-1.0); Monocytes % (A) 1 %; Neutrophils # (A) 20.3 k/uL (1.3-7.7); Neutrophils % (A) 96 %; Platelet Count 412 k/uL (150-450); RDW 13.2 % (11.5-15.5); WBC 21.2 k/uL (3.8-10.6)
[2017-11-26] MEDS: MORPHINE SULFATE 4 MG/0.8 ML SYRINGE (INJ) IVP PRN (05:58)
[2017-11-26] MEDS: D5-0.45% NACL WITH KCL 20MEQ/L 1,000 ML IV SCH ×2 (05:59→18:45)
[2017-11-26] MEDS: AMPICILLIN-SULBACTAM 3 GM in SODIUM CHLORIDE 0.9% 100 ML IVPB SCH ×4 (06:02→23:22)
--- NOTE | 2017-11-26 06:54 | XR ---
EXAMINATION TYPE: XR chest 1V DATE OF EXAM: 11/26/2017 HISTORY: shortness of breath. REFERENCE: Previous study dated 10/16/2017. FINDINGS: Lung volumes are prominent. The heart is enlarged. There are small, bilateral effusions. Th ere is bibasilar airspace disease. IMPRESSION: 1. COPD. 2. CARDIOMEGALY. 3. SMALL, BILATERAL EFFUSIONS. 4. MILD, BIBASILAR AIRSPACE DISEASE.
[2017-11-26] MEDS: ACETAMINOPHEN IV (For NPO) 1,000 MG in EMPTY BAG 1 BAG IVPB SCH ×3 (08:04→22:57)
[2017-11-26] MEDS: HEPARIN SODIUM,PORCINE 5,000 UNIT/ML 1 ML VIAL SQ SCH ×3 (08:04→22:58)
--- NOTE | 2017-11-26 08:55 | P.PN ---
Subjective Progress Note Date: 11/26/17 Principal diagnosis: Status post open cholecystectomy Progress note dated 11/26/2017 81-year-old male who underwent a open cholecystectomy yesterday. Today's postop day #1. He had significant bile throughout the abdomen. He was extubated in the recovery room. Doing relatively well. Chest x-ray shows a minimal atelectasis at the lung bases small pleural effusions. I told him to make sure that he focuses on deep breathing coughing clearing his secretions and use of the incentive spirometer. Other than that, he is doing reasonably well. He does have a history of recent heart catheterization with 2 stents placed in the right coronary artery and also has a history of hypertension coronary disease and dementia depression and BPH. He also suffers some vitamin D deficiency and hyperlipidemia. Objective - Vital Signs Vital signs: Vital Signs Temp 97.3 F L 11/26/17 04:00 Pulse 86 11/26/17 07:00 Resp 79 H 11/26/17 07:00 BP 125/68 11/26/17 07:00 Pulse Ox 95 11/26/17 07:00 Intake & Output 11/25/17 11/26/17 11/26/17 18:59 06:59 18:59 Intake Total 2245 1450 75 Output Total 440 448 33 Balance 1805 1002 42 Weight 73.936 kg 77.4 kg Intake: IV 1300 1450 75 Ampicillin-Sulbactam 3 gm 200 In Sodium Chloride 0.9% 100 ml @ 100 mls/hr IVPB Q6HR [facility] Rx#:[id number] D5-0.45% NaCl with KCl 750 75 20Meq/l 1,000 ml @ 75 mls /hr IV .[id number] [facility] Rx#: [id number] Sodium Chloride 0.9% 500 500 ml @ 999 mls/hr IV .Q31M [facility] Rx#:[id number] Intake, IV Titration 650 Amount D5-0.45% NaCl with KCl 300 20Meq/l 1,000 ml @ 75 mls /hr IV .[id number] [facility] Rx#: [id number] Sodium Chloride 0.9% 1, 350 000 ml As IV .STK-MED ONE Rx#:[id number] Oral 5 Blood Product 290 Platelet Pheresis Acda2 290 Unit [id number] Output: Drainage 40 Right Lower Abdomen 40 Urine 390 408 33 Estimated Blood Loss 50 Other: Voiding Method Indwelling Catheter Indwelling Catheter - Exam No acute distress, oriented 3. Nasal O2 in place. HEENT examination is grossly unremarkable. Mucous membranes are moist. No oral lesions. Neck supple. Full range of motion. No adenopathy thyromegaly or neck vein distention. Cardiovascular examination reveals regular rhythm rate. S1-S2 normal. No S3 or S4. No discernible murmur noted. Lungs reveal clear breath sounds. Her sounds are equal bilaterally. No adventitious lung sounds including wheezes rhonchi or crackles. Abdomen soft and no bowel sounds are noted. Mild tenderness on palpation Extremities are intact. No cyanosis clubbing or edema. Skin is without rash or lesion. Neurologic examination is brief but nonfocal. - Labs CBC & Chem 7: 11/26/17 04:35 11/26/17 04:35 Labs: Abnormal Lab Results - Last 24 Hours (Table) 11/25/17 11/25/17 11/25/17 Range/Units 11:09 11:09 15:35 WBC 20.2 H (3.8-10.6) k/uL RBC (4.30-5.90) m/uL Hgb (13.0-17.5) gm/dL Hct (39.0-53.0) % Neutrophils # (1.3-7.7) k/uL Neutrophils # (Manual) 19.10 H (1.3-7.7) k/uL Lymphocytes # (1.0-4.8) k/uL Lymphocytes # (Manual) 0.40 L (1.0-4.8) k/uL Metamyelocytes # (Man) 0.61 H (0) k/uL Myelocytes # (Manual) 0.20 H (0) k/uL Sodium 148 H (137-145) mmol/L Chloride 111 H (98-107) mmol/L BUN 25 H (9-20) mg/dL Glucose (74-99) mg/dL Calcium (8.4-10.2) mg/dL Total Protein (6.3-8.2) g/dL Albumin (3.5-5.0) g/dL Ur Specific [place] 1.044 H (1.001-1.035) Urine Protein 1+ H (Negative) Urine Ketones Trace H (Negative) Urine Blood Trace H (Negative) Urine Bilirubin 1+ H (Negative) Urine RBC 12 H (0-5) /hpf Urine Bacteria Rare H (None) /hpf Hyaline Casts 9 H (0-2) /lpf Urine Mucus Rare H (None) /hpf 11/26/17 11/26/17 Range/Units 04:35 04:35 WBC 21.2 H (3.8-10.6) k/uL RBC 3.90 L (4.30-5.90) m/uL Hgb 11.9 L (13.0-17.5) gm/dL Hct 36.6 L (39.0-53.0) % Neutrophils # 20.3 H (1.3-7.7) k/uL Neutrophils # (Manual) (1.3-7.7) k/uL Lymphocytes # 0.5 L (1.0-4.8) k/uL Lymphocytes # (Manual) (1.0-4.8) k/uL Metamyelocytes # (Man) (0) k/uL Myelocytes # (Manual) (0) k/uL Sodium (137-145) mmol/L Chloride 112 H (98-107) mmol/L BUN 36 H (9-20) mg/dL Glucose 182 H (74-99) mg/dL Calcium 8.2 L (8.4-10.2) mg/dL Total Protein 4.2 L (6.3-8.2) g/dL Albumin 2.2 L (3.5-5.0) g/dL Ur Specific [place] (1.001-1.035) Urine Protein (Negative) Urine Ketones (Negative) Urine Blood (Negative) Urine Bilirubin (Negative) Urine RBC (0-5) /hpf Urine Bacteria (None) /hpf Hyaline Casts (0-2) /lpf Urine Mucus (None) /hpf Microbiology - Last 24 Hours (Table) 11/25/17 13:00 Gram Stain - Preliminary Abdomen Wound Culture - Preliminary 11/25/17 15:35 Urine Culture - Preliminary Urine,Catheterized 11/25/17 13:00 Anaerobic Culture - Preliminary Abdomen Assessment and Plan Assessment: Assessment Status post open cholecystectomy, for perforated gallbladder, postop day #1 History of hypertension History of hyperlipidemia History of CAD with recent catheterization and stent placements to the right coronary artery History of vitamin D deficiency Dementia by history BPH by history Plan: Plan dated 11/25/2017 The patient will be provided nasal O2. We'll also encourage the patient has deep breathing coughing clearing secretions. In addition, we will start the patient on incentive spirometer. The patient some IV fluids and antibiotics. He will also get pain control. Continue to watch patient closely. Likely, if the patient does well, he'll be able to be discharged out of here tomorrow. Plan dated 11/26/2017 I encourage patient to do deep breathing coughing and clearing his secretions and to use the incentive spirometer every hour. The patient does have some lower lobe atelectasis. The patient is stable for transfer out of the ICU to the general medical floor. The patient otherwise is doing well hemodynamically. significant pain. Patient is not having any breathing issues. The patient is receiving IV fluids of D5.45 with 20 of potassium at 75 mL an hour. Critical care time 33 minutes Time with Patient: Greater than 30
[2017-11-26] MEDS: BISACODYL 10 MG SUPP RECTAL SCH ×2 (09:22→09:28)
[2017-11-26] MEDS: FAMOTIDINE 20 MG/2 ML VIAL IV SCH ×2 (09:23→21:12)
--- NOTE | 2017-11-26 10:53 | P.PN ---
Subjective Progress Note Date: 11/26/17 Principal diagnosis: Perforated cholecystitis Patient feels well today. His actually hoping to go home soon. White blood cell count now 21.2. Liver enzymes normal. GALILEA drain serosanguineous. No nausea or vomiting. Pain is well-controlled. Objective - Vital Signs Vital signs: Vital Signs Temp 97.8 F 11/26/17 08:00 Pulse 75 11/26/17 10:00 Resp 18 11/26/17 10:00 BP 106/57 11/26/17 10:00 Pulse Ox 95 11/26/17 10:00 Intake & Output 11/25/17 11/26/17 11/26/17 18:59 06:59 18:59 Intake Total 2245 1450 375 Output Total 440 448 128 Balance 1805 1002 247 Weight 73.936 kg 77.4 kg Intake: IV 1300 1450 375 ACETAMINOPHEN IV (For NPO 100 ) 1,000 mg In Empty Bag 1 bag @ 400 mls/hr IVPB Q8HR [facility] Rx#:[id number] Ampicillin-Sulbactam 3 gm 200 In Sodium Chloride 0.9% 100 ml @ 100 mls/hr IVPB Q6HR [facility] Rx#:[id number] D5-0.45% NaCl with KCl 750 275 20Meq/l 1,000 ml @ 75 mls /hr IV .[id number] [facility] Rx#: [id number] Sodium Chloride 0.9% 500 500 ml @ 999 mls/hr IV .Q31M [facility] Rx#:[id number] Intake, IV Titration 650 Amount D5-0.45% NaCl with KCl 300 20Meq/l 1,000 ml @ 75 mls /hr IV .[id number] [facility] Rx#: [id number] Sodium Chloride 0.9% 1, 350 000 ml As IV .STK-MED ONE Rx#:[id number] Oral 5 Blood Product 290 Platelet Pheresis Acda2 290 Unit [id number] Output: Drainage 40 Right Lower Abdomen 40 Urine 390 408 128 Estimated Blood Loss 50 Other: Voiding Method Indwelling Catheter Indwelling Catheter Indwelling Catheter - Exam Abdomen: Soft, nondistended, incision dressing intact - Labs CBC & Chem 7: 11/26/17 04:35 11/26/17 04:35 Labs: Abnormal Lab Results - Last 24 Hours (Table) 11/25/17 11/25/17 11/25/17 Range/Units 11:09 11:09 15:35 WBC 20.2 H (3.8-10.6) k/uL RBC (4.30-5.90) m/uL Hgb (13.0-17.5) gm/dL Hct (39.0-53.0) % Neutrophils # (1.3-7.7) k/uL Neutrophils # (Manual) 19.10 H (1.3-7.7) k/uL Lymphocytes # (1.0-4.8) k/uL Lymphocytes # (Manual) 0.40 L (1.0-4.8) k/uL Metamyelocytes # (Man) 0.61 H (0) k/uL Myelocytes # (Manual) 0.20 H (0) k/uL Sodium 148 H (137-145) mmol/L Chloride 111 H (98-107) mmol/L BUN 25 H (9-20) mg/dL Glucose (74-99) mg/dL Calcium (8.4-10.2) mg/dL Total Protein (6.3-8.2) g/dL Albumin (3.5-5.0) g/dL Ur Specific [place] 1.044 H (1.001-1.035) Urine Protein 1+ H (Negative) Urine Ketones Trace H (Negative) Urine Blood Trace H (Negative) Urine Bilirubin 1+ H (Negative) Urine RBC 12 H (0-5) /hpf Urine Bacteria Rare H (None) /hpf Hyaline Casts 9 H (0-2) /lpf Urine Mucus Rare H (None) /hpf 11/26/17 11/26/17 Range/Units 04:35 04:35 WBC 21.2 H (3.8-10.6) k/uL RBC 3.90 L (4.30-5.90) m/uL Hgb 11.9 L (13.0-17.5) gm/dL Hct 36.6 L (39.0-53.0) % Neutrophils # 20.3 H (1.3-7.7) k/uL Neutrophils # (Manual) (1.3-7.7) k/uL Lymphocytes # 0.5 L (1.0-4.8) k/uL Lymphocytes # (Manual) (1.0-4.8) k/uL Metamyelocytes # (Man) (0) k/uL Myelocytes # (Manual) (0) k/uL Sodium (137-145) mmol/L Chloride 112 H (98-107) mmol/L BUN 36 H (9-20) mg/dL Glucose 182 H (74-99) mg/dL Calcium 8.2 L (8.4-10.2) mg/dL Total Protein 4.2 L (6.3-8.2) g/dL Albumin 2.2 L (3.5-5.0) g/dL Ur Specific [place] (1.001-1.035) Urine Protein (Negative) Urine Ketones (Negative) Urine Blood (Negative) Urine Bilirubin (Negative) Urine RBC (0-5) /hpf Urine Bacteria (None) /hpf Hyaline Casts (0-2) /lpf Urine Mucus (None) /hpf Microbiology - Last 24 Hours (Table) 11/25/17 13:00 Gram Stain - Preliminary Abdomen Wound Culture - Preliminary 11/25/17 15:35 Urine Culture - Preliminary Urine,Catheterized 11/25/17 13:00 Anaerobic Culture - Preliminary Abdomen Assessment and Plan (1) Acute cholecystitis Narrative/Plan: Continue antibiotics. Await cultures. Resume diet. Ambulate. May transfer to floor. Current Visit: Yes Status: Acute Code(s): K81.0 - ACUTE CHOLECYSTITIS SNOMED Code(s): 18954823
[2017-11-26] MEDS: ASPIRIN 81 MG PO SCH (11:29)
[2017-11-26] MEDS: CLOPIDOGREL 75 MG TAB PO SCH (11:29)
--- NOTE | 2017-11-26 17:39 | P.PN ---
Subjective RIKI This is a pleasant 82 years old lady with past medical history of back surgery heart cath who presents because of upper abdominal pain radiating to the back she underwent CAT scan and ultrasound of the gastrointestinal tract and showing acute cholecystitis with large gallstone primary surgical team admitted the patient for surgical cholecystectomy, patient is found to have perforated gallbladder and there was mild throughout the whole abdominal cavity, patient was admitted to the intensive care unit for further care, pulmonary consultation on the case Subjective Patient is seen and examined by me at bedside No new complaints No CP/CO B, no new change in urine or bowel habits, no fever Patient looks more awake today, pt states he feels better Objective - Vital Signs Vital signs: Vital Signs Temp 98.0 F 11/26/17 12:17 Pulse 67 11/26/17 12:17 Resp 18 11/26/17 12:17 BP 127/73 11/26/17 12:17 Pulse Ox 95 11/26/17 12:17 Intake & Output 11/25/17 11/26/17 11/26/17 18:59 06:59 18:59 Intake Total 2245 1450 750 Output Total 440 448 178 Balance 1805 1002 572 Weight 73.936 kg 77.4 kg Intake: IV 1300 1450 450 ACETAMINOPHEN IV (For NPO 100 ) 1,000 mg In Empty Bag 1 bag @ 400 mls/hr IVPB Q8HR [facility] Rx#:[id number] Ampicillin-Sulbactam 3 gm 200 In Sodium Chloride 0.9% 100 ml @ 100 mls/hr IVPB Q6HR [facility] Rx#:[id number] D5-0.45% NaCl with KCl 750 350 20Meq/l 1,000 ml @ 75 mls /hr IV .[id number] [facility] Rx#: [id number] Sodium Chloride 0.9% 500 500 ml @ 999 mls/hr IV .Q31M [facility] Rx#:[id number] Intake, IV Titration 650 Amount D5-0.45% NaCl with KCl 300 20Meq/l 1,000 ml @ 75 mls /hr IV .[id number] ON LICENSE OF [facility] Rx#: [id number] Sodium Chloride 0.9% 1, 350 000 ml As IV .STK-MED ONE Rx#:[id number] Oral 5 300 Blood Product 290 Platelet Pheresis Acda2 290 Unit [id number] Output: Drainage 40 0 Right Lower Abdomen 40 0 Urine 390 408 178 Estimated Blood Loss 50 Other: Voiding Method Indwelling Catheter Indwelling Catheter Indwelling Catheter - Exam Constitutional: No acute distress, conversant, pleasant Eyes: Anicteric sclerae, moist conjunctiva, no lid-lag PERRLA ENMT: NC/AT Oropharynx clear, no erythema, exudates Neck: Supple, FROM, no masses, or JVD No carotid bruits No thyromegaly Lungs: Clear to auscultation Clear to percussion Normal respiratory effort, no accessory muscle use Cardiovascular: Heart regular in rate and rhythm, No murmurs, gallops, or rubs No peripheral edema Abdominal: Soft Nontender, no guarding, rebound or rigidity Abdomen moving with respiration Normoactive bowel sounds No hepatomegaly, No splenomegaly No palpable mass abdominal wall incision looks closed with a dressing, no signs symptoms of bleeding or inflammation in the surrounding skin Skin: Normal temperature, tone, texture, turgor No induration No subcutaneous nodules No rash, lesions No ulcers Extremities: No digital cyanosis No clubbing Pedal pulses intact and symmetrical Radial pulses intact and symmetrical Normal gait and station No calf tenderness Psychiatric: Alert and oriented to person, place and time Appropriate affect Intact judgement Neuro: Muscles Strength 5/5 in all 4 extremities Sensation to light touch grossly present throughout Cranial nerves II-XII grossly intact No focal sensory deficits - Labs CBC & Chem 7: 11/26/17 04:35 11/26/17 04:35 Labs: Abnormal Lab Results - Last 24 Hours (Table) 11/25/17 11/25/17 11/25/17 Range/Units 11:09 11:09 15:35 WBC 20.2 H (3.8-10.6) k/uL RBC (4.30-5.90) m/uL Hgb (13.0-17.5) gm/dL Hct (39.0-53.0) % Neutrophils # (1.3-7.7) k/uL Neutrophils # (Manual) 19.10 H (1.3-7.7) k/uL Lymphocytes # (1.0-4.8) k/uL Lymphocytes # (Manual) 0.40 L (1.0-4.8) k/uL Metamyelocytes # (Man) 0.61 H (0) k/uL Myelocytes # (Manual) 0.20 H (0) k/uL Sodium 148 H (137-145) mmol/L Chloride 111 H (98-107) mmol/L BUN 25 H (9-20) mg/dL Glucose (74-99) mg/dL Calcium (8.4-10.2) mg/dL Total Protein (6.3-8.2) g/dL Albumin (3.5-5.0) g/dL Ur Specific [place] 1.044 H (1.001-1.035) Urine Protein 1+ H (Negative) Urine Ketones Trace H (Negative) Urine Blood Trace H (Negative) Urine Bilirubin 1+ H (Negative) Urine RBC 12 H (0-5) /hpf Urine Bacteria Rare H (None) /hpf Hyaline Casts 9 H (0-2) /lpf Urine Mucus Rare H (None) /hpf 11/26/17 11/26/17 Range/Units 04:35 04:35 WBC 21.2 H (3.8-10.6) k/uL RBC 3.90 L (4.30-5.90) m/uL Hgb 11.9 L (13.0-17.5) gm/dL Hct 36.6 L (39.0-53.0) % Neutrophils # 20.3 H (1.3-7.7) k/uL Neutrophils # (Manual) (1.3-7.7) k/uL Lymphocytes # 0.5 L (1.0-4.8) k/uL Lymphocytes # (Manual) (1.0-4.8) k/uL Metamyelocytes # (Man) (0) k/uL Myelocytes # (Manual) (0) k/uL Sodium (137-145) mmol/L Chloride 112 H (98-107) mmol/L BUN 36 H (9-20) mg/dL Glucose 182 H (74-99) mg/dL Calcium 8.2 L (8.4-10.2) mg/dL Total Protein 4.2 L (6.3-8.2) g/dL Albumin 2.2 L (3.5-5.0) g/dL Ur Specific [place] (1.001-1.035) Urine Protein (Negative) Urine Ketones (Negative) Urine Blood (Negative) Urine Bilirubin (Negative) Urine RBC (0-5) /hpf Urine Bacteria (None) /hpf Hyaline Casts (0-2) /lpf Urine Mucus (None) /hpf Microbiology - Last 24 Hours (Table) 11/25/17 13:00 Gram Stain - Preliminary Abdomen Wound Culture - Preliminary 11/25/17 15:35 Urine Culture - Preliminary Urine,Catheterized 11/25/17 13:00 Anaerobic Culture - Preliminary Abdomen Assessment and Plan Assessment: Status post open cholecystectomy for perforated gallbladder postop day #0 Hypertension History of coronary artery disease status post cardiac cath leukocytosis Plan: Patient is admitted to the intensive care unit for further care spout tender consult is appreciated, patient's vitals looks stable with temporal tachypnea, patient is already on Unasyn and GI and DVT prophylaxis, continue with pain treatment Discussed with the and daughter at bedside family they want the patient to be DO NOT RESUSCITATE , DO NOT INTUBATE Prognosis is guarded given the severity of his condition and advanced age and other co-morbidities patient is already on antibiotic, Unasyn, urine culture is pending, wound culture is spending while Gram stain shows many gram-negative bacilli patient is transferred from ICU to surgical [place]
[2017-11-26] MEDS: METOPROLOL TARTRATE 25 MG TAB PO SCH (21:12)
--- NOTE | 2017-11-27 00:28 | CONS ---
CONSULTATION This patient underwent status post cholecystectomy. The patient had a recent inferior wall myocardial infarction. The patient remains hemodynamically stable. He denies any chest pain. Denies any shortness of breath. Blood pressure is 120/80 mmHg. First and second heart sounds are normal. Lungs are clinically clear to auscultation and percussion. The patient is to be started on aspirin and Plavix. We will also start the patient on Lopressor 25 mg b.i.d. ODL / IJN: [id number] /
[2017-11-27] MEDS: KETOROLAC 30 MG/ML 1 ML VIAL IVP SCH ×2 (04:44→08:34)
[2017-11-27] MEDS: AMPICILLIN-SULBACTAM 3 GM in SODIUM CHLORIDE 0.9% 100 ML IVPB SCH ×3 (05:39→18:44)
[2017-11-27 08:17] LABS: Basophils % (A) 0 %; Eosinophils % (A) 0 %; HCT 37.2 % (39.0-53.0); HGB 12.4 gm/dL (13.0-17.5); Lymphocytes # (A) 0.7 k/uL (1.0-4.8); Lymphocytes % (A) 3 %; MCH 30.8 pg (25.0-35.0); MCHC 33.3 g/dL (31.0-37.0); MCV 92.6 fL (80.0-100.0); Mean Platelet Volume 7.1; Monocytes # (A) 0.6 k/uL (0-1.0); Monocytes % (A) 2 %; Neutrophils % (A) 95 %; Platelet Count 475 k/uL (150-450); RBC 4.01 m/uL (4.30-5.90); RDW 12.9 % (11.5-15.5)
[2017-11-27 08:20] LABS: WBC 26.5 k/uL (3.8-10.6)
[2017-11-27 08:26] LABS: ALT 56 U/L (21-72); AST 50 U/L (17-59); Albumin 2.5 g/dL (3.5-5.0); Alkaline Phosphatase 167 U/L (38-126); Anion Gap 11 mmol/L; Blood Urea Nitrogen 32 mg/dL (9-20); Calcium 8.8 mg/dL (8.4-10.2); Carbon Dioxide 23 mmol/L (22-30); Chloride 107 mmol/L (98-107); Glucose 121 mg/dL (74-99); Potassium 4.4 mmol/L (3.5-5.1); Sodium 141 mmol/L (137-145); Total Bilirubin 0.4 mg/dL (0.2-1.3)
[2017-11-27] MEDS: FAMOTIDINE 20 MG/2 ML VIAL IV SCH ×2 (08:34→21:37)
[2017-11-27] MEDS: HEPARIN SODIUM,PORCINE 5,000 UNIT/ML 1 ML VIAL SQ SCH ×2 (08:35→18:44)
[2017-11-27] MEDS: ASPIRIN 81 MG PO SCH (08:38)
[2017-11-27] MEDS: METOPROLOL TARTRATE 25 MG TAB PO SCH ×2 (08:38→21:37)
[2017-11-27] MEDS: CLOPIDOGREL 75 MG TAB PO SCH (08:38)
[2017-11-27] MEDS: BISACODYL 10 MG SUPP RECTAL SCH (08:39)
[2017-11-27] MEDS ORDERED: MORPHINE ORAL SOLN 10 MG/5 ML CUP PO PRN (08:53)
--- NOTE | 2017-11-27 10:20 | P.PN ---
Subjective Progress Note Date: 11/27/17 Principal diagnosis: Referring cholecystitis, status post cholecystectomy Progress note dated 11/26/2017 81-year-old male who underwent a open cholecystectomy yesterday. Today's postop day #1. He had significant bile throughout the abdomen. He was extubated in the recovery room. Doing relatively well. Chest x-ray shows a minimal atelectasis at the lung bases small pleural effusions. I told him to make sure that he focuses on deep breathing coughing clearing his secretions and use of the incentive spirometer. Other than that, he is doing reasonably well. He does have a history of recent heart catheterization with 2 stents placed in the right coronary artery and also has a history of hypertension coronary disease and dementia depression and BPH. He also suffers some vitamin D deficiency and hyperlipidemia. On 11/27/2017 patient seen in follow-up on the surgical floor, sitting up in bed , denies any acute distress. Currently on room air, with O2 sat at 98%, hemodynamically stable, afebrile. Day 2, status post open cholecystectomy. Patient's labs have been reviewed, WBC is 26.5, hemoglobin is 12.4, electrolytes are within normal limits, BUN is 32 and creatinine 0.88. he is tolerating clear liquid diet, and is nonoliguric. Abdominal incision is covered with surgical dressing, patient has abdominal binder in place. Continue encouraging deep breathing and coughing, no acute events overnight. Objective - Vital Signs Vital signs: Vital Signs Temp 97.4 F L 11/27/17 07:00 Pulse 80 11/27/17 07:00 Resp 18 11/27/17 08:00 BP 148/79 11/27/17 07:00 Pulse Ox 98 11/27/17 07:00 Intake & Output 11/26/17 11/27/17 11/27/17 18:59 06:59 18:59 Intake Total 750 360 Output Total 178 70 150 Balance 572 290 -150 Intake: IV 450 ACETAMINOPHEN IV (For NPO 100 ) 1,000 mg In Empty Bag 1 bag @ 400 mls/hr IVPB Q8HR [facility] Rx#:[id number] D5-0.45% NaCl with KCl 350 20Meq/l 1,000 ml @ 75 mls /hr IV .[id number] [facility] Rx#: [id number] Oral 300 360 Output: Drainage 0 Right Lower Abdomen 0 Urine 178 70 150 Other: Voiding Method Indwelling Catheter Indwelling Catheter Urinal # Voids 1 - Exam No acute distress, oriented 3. Nasal O2 in place. HEENT examination is grossly unremarkable. Mucous membranes are moist. No oral lesions. Neck supple. Full range of motion. No adenopathy thyromegaly or neck vein distention. Cardiovascular examination reveals regular rhythm rate. S1-S2 normal. No S3 or S4. No discernible murmur noted. Lungs reveal clear breath sounds. Her sounds are equal bilaterally. No adventitious lung sounds including wheezes rhonchi or crackles. Abdomen soft , slightly tender, abdominal incision is clean dry and intact, covered with surgical dressing, abdominal binder is in place. Extremities are intact. No cyanosis clubbing or edema. Skin is without rash or lesion. Neurologic examination is brief but nonfocal. - Labs CBC & Chem 7: 11/27/17 07:38 11/27/17 07:38 Labs: Abnormal Lab Results - Last 24 Hours (Table) 11/27/17 11/27/17 Range/Units 07:38 07:38 WBC 26.5 H* (3.8-10.6) k/uL RBC 4.01 L (4.30-5.90) m/uL Hgb 12.4 L (13.0-17.5) gm/dL Hct 37.2 L (39.0-53.0) % Plt Count 475 H (150-450) k/uL Neutrophils # 25.0 H (1.3-7.7) k/uL Lymphocytes # 0.7 L (1.0-4.8) k/uL BUN 32 H (9-20) mg/dL Glucose 121 H (74-99) mg/dL Alkaline Phosphatase 167 H (38-126) U/L Total Protein 5.0 L (6.3-8.2) g/dL Albumin 2.5 L (3.5-5.0) g/dL Microbiology - Last 24 Hours (Table) 11/25/17 15:35 Urine Culture - Final Urine,Catheterized 11/25/17 13:00 Gram Stain - Preliminary Abdomen Wound Culture - Preliminary Gram Neg Bacilli Assessment and Plan Plan: Assessment: Status post open cholecystectomy, for perforated gallbladder, postop day #2 History of hypertension History of hyperlipidemia History of CAD with recent catheterization and stent placements to the right coronary artery History of vitamin D deficiency Dementia by history BPH by history Plan: Patient is stable from pulmonary standpoint, denies any chest pain, denies any dyspnea. Continue encouraging deep breathing and coughing, incentive spirometry use. Signs are stable, patient is afebrile. No active pulmonary issues at this time. We will follow the patient on as-needed basis. Thank you for this consultation. I performed a history & physical examination of the patient and discussed their management with my nurse practitioner, Blessing Carroll. I reviewed the nurse practitioner's note and agree with the documented findings and plan of care. Lung sounds are clear. The findings and the impression was discussed with the patient. I attest to the documentation by the nurse practitioner. Time with Patient: Less than 30
[2017-11-27] MEDS: ACETAMINOPHEN IV (For NPO) 1,000 MG in EMPTY BAG 1 BAG IVPB SCH ×3 (11:32→23:06)
[2017-11-27] MEDS: metroNIDAZOLE-NS PMX 500 MG in SALINE 1 100ML.BAG IVPB SCH ×2 (12:23→16:50)
--- NOTE | 2017-11-27 13:16 | P.PN ---
Subjective RIKI This is a pleasant 82 years old lady with past medical history of back surgery heart cath who presents because of upper abdominal pain radiating to the back she underwent CAT scan and ultrasound of the gastrointestinal tract and showing acute cholecystitis with large gallstone primary surgical team admitted the patient for surgical cholecystectomy, patient is found to have perforated gallbladder and there was mild throughout the whole abdominal cavity, patient was admitted to the intensive care unit for further care, pulmonary consultation on the case Subjective Patient is seen and examined by me at bedside No new complaints No CP/CO B, no new change in urine or bowel habits, no fever Patient looks more awake today, pt states he feels better Objective - Vital Signs Vital signs: Vital Signs Temp 97.4 F L 11/27/17 07:00 Pulse 80 11/27/17 07:00 Resp 18 11/27/17 08:00 BP 148/79 11/27/17 07:00 Pulse Ox 98 11/27/17 07:00 Intake & Output 11/26/17 11/27/17 11/27/17 18:59 06:59 18:59 Intake Total 750 360 Output Total 178 70 150 Balance 572 290 -150 Intake: IV 450 ACETAMINOPHEN IV (For NPO 100 ) 1,000 mg In Empty Bag 1 bag @ 400 mls/hr IVPB Q8HR [facility] Rx#:[id number] D5-0.45% NaCl with KCl 350 20Meq/l 1,000 ml @ 75 mls /hr IV .[id number] [facility] Rx#: [id number] Oral 300 360 Output: Drainage 0 0 Right Lower Abdomen 0 0 Urine 178 70 150 Other: Voiding Method Indwelling Catheter Indwelling Catheter Urinal # Voids 1 - Exam Constitutional: No acute distress, conversant, pleasant Eyes: Anicteric sclerae, moist conjunctiva, no lid-lag PERRLA ENMT: NC/AT Oropharynx clear, no erythema, exudates Neck: Supple, FROM, no masses, or JVD No carotid bruits No thyromegaly Lungs: Clear to auscultation Clear to percussion Normal respiratory effort, no accessory muscle use Cardiovascular: Heart regular in rate and rhythm, No murmurs, gallops, or rubs No peripheral edema Abdominal: Soft Nontender, no guarding, rebound or rigidity Abdomen moving with respiration Normoactive bowel sounds No hepatomegaly, No splenomegaly No palpable mass abdominal wall incision looks closed with a dressing, no signs symptoms of bleeding or inflammation in the surrounding skin Skin: Normal temperature, tone, texture, turgor No induration No subcutaneous nodules No rash, lesions No ulcers Extremities: No digital cyanosis No clubbing Pedal pulses intact and symmetrical Radial pulses intact and symmetrical Normal gait and station No calf tenderness Psychiatric: Alert and oriented to person, place and time Appropriate affect Intact judgement Neuro: Muscles Strength 5/5 in all 4 extremities Sensation to light touch grossly present throughout Cranial nerves II-XII grossly intact No focal sensory deficits - Labs CBC & Chem 7: 11/27/17 07:38 11/27/17 07:38 Labs: Abnormal Lab Results - Last 24 Hours (Table) 11/27/17 11/27/17 Range/Units 07:38 07:38 WBC 26.5 H* (3.8-10.6) k/uL RBC 4.01 L (4.30-5.90) m/uL Hgb 12.4 L (13.0-17.5) gm/dL Hct 37.2 L (39.0-53.0) % Plt Count 475 H (150-450) k/uL Neutrophils # 25.0 H (1.3-7.7) k/uL Lymphocytes # 0.7 L (1.0-4.8) k/uL BUN 32 H (9-20) mg/dL Glucose 121 H (74-99) mg/dL Alkaline Phosphatase 167 H (38-126) U/L Total Protein 5.0 L (6.3-8.2) g/dL Albumin 2.5 L (3.5-5.0) g/dL Microbiology - Last 24 Hours (Table) 11/25/17 15:35 Urine Culture - Final Urine,Catheterized 11/25/17 13:00 Gram Stain - Preliminary Abdomen Wound Culture - Preliminary Gram Neg Bacilli Assessment and Plan Assessment: Status post open cholecystectomy for perforated gallbladder postop day #0 Hypertension History of coronary artery disease status post cardiac cath leukocytosis positive wound culture Plan: Patient is admitted to the intensive care unit for further care mold car pusher consult is appreciated, patient's vitals looks stable with temporal tachypnea, patient is already on Unasyn and GI and DVT prophylaxis, continue with pain treatment Discussed with the and daughter at bedside family they want the patient to be DO NOT RESUSCITATE , DO NOT INTUBATE Prognosis is guarded given the severity of his condition and advanced age and other co-morbidities patient is already on antibiotic, Unasyn, urine culture is pending, wound culture is shows many gram-negative bacilli, pt has worsening Leukocytsosis , we recommend ID consult , primary team added flagyl, but the culture is in the aerobic culture , d/w staff
[2017-11-27] MEDS: D5-0.45% NACL WITH KCL 20MEQ/L 1,000 ML IV SCH ×2 (13:27→22:30)
[2017-11-27] MEDS: MORPHINE ORAL SOLN 10 MG/5 ML CUP PO PRN (13:41)
--- NOTE | 2017-11-27 15:35 | P.PN ---
Subjective Progress Note Date: 11/27/17 Principal diagnosis: Perforated cholecystitis Patient apparently had some confusion this morning. He feels well at this time and appears alert. Minimal discomfort along the incision site. Tolerating clears. No nausea or vomiting. He is asking for more to eat. Preliminary cultures noted. Patient's white blood cell count increased further. He is afebrile. GALILEA drain serous. Objective - Vital Signs Vital signs: Vital Signs Temp 97.9 F 11/27/17 14:50 Pulse 60 11/27/17 14:50 Resp 16 11/27/17 14:50 BP 126/70 11/27/17 14:50 Pulse Ox 96 11/27/17 14:50 Intake & Output 11/26/17 11/27/17 11/27/17 18:59 06:59 18:59 Intake Total 750 360 Output Total 178 70 150 Balance 572 290 -150 Intake: IV 450 ACETAMINOPHEN IV (For NPO 100 ) 1,000 mg In Empty Bag 1 bag @ 400 mls/hr IVPB Q8HR [facility] Rx#:[id number] D5-0.45% NaCl with KCl 350 20Meq/l 1,000 ml @ 75 mls /hr IV .[id number] [facility] Rx#: [id number] Oral 300 360 Output: Drainage 0 0 Right Lower Abdomen 0 0 Urine 178 70 150 Other: Voiding Method Indwelling Catheter Indwelling Catheter Urinal # Voids 1 - Exam Abdomen: Soft, mild incisional tenderness, incision clean and dry with small amount of drainage from the wick sites - Labs CBC & Chem 7: 11/27/17 07:38 11/27/17 07:38 Labs: Abnormal Lab Results - Last 24 Hours (Table) 11/27/17 11/27/17 Range/Units 07:38 07:38 WBC 26.5 H* (3.8-10.6) k/uL RBC 4.01 L (4.30-5.90) m/uL Hgb 12.4 L (13.0-17.5) gm/dL Hct 37.2 L (39.0-53.0) % Plt Count 475 H (150-450) k/uL Neutrophils # 25.0 H (1.3-7.7) k/uL Lymphocytes # 0.7 L (1.0-4.8) k/uL BUN 32 H (9-20) mg/dL Glucose 121 H (74-99) mg/dL Alkaline Phosphatase 167 H (38-126) U/L Total Protein 5.0 L (6.3-8.2) g/dL Albumin 2.5 L (3.5-5.0) g/dL Microbiology - Last 24 Hours (Table) 11/25/17 15:35 Urine Culture - Final Urine,Catheterized 11/25/17 13:00 Gram Stain - Preliminary Abdomen Wound Culture - Preliminary Gram Neg Bacilli Assessment and Plan (1) Acute cholecystitis Narrative/Plan: Continue PT and OT. Continue IV antibiotics. Recheck CBC tomorrow. Gradually advance diet. Current Visit: Yes Status: Acute Code(s): K81.0 - ACUTE CHOLECYSTITIS SNOMED Code(s): 79598085
[2017-11-28] MEDS: HEPARIN SODIUM,PORCINE 5,000 UNIT/ML 1 ML VIAL SQ SCH ×3 (00:38→15:39)
[2017-11-28] MEDS: AMPICILLIN-SULBACTAM 3 GM in SODIUM CHLORIDE 0.9% 100 ML IVPB SCH ×4 (00:38→17:08)
[2017-11-28] MEDS: metroNIDAZOLE-NS PMX 500 MG in SALINE 1 100ML.BAG IVPB SCH ×3 (02:16→15:51)
[2017-11-28] MEDS: MORPHINE ORAL SOLN 10 MG/5 ML CUP PO PRN ×2 (02:51→18:25)
[2017-11-28] MEDS: METOPROLOL TARTRATE 25 MG TAB PO SCH ×2 (07:19→22:45)
[2017-11-28] MEDS: CLOPIDOGREL 75 MG TAB PO SCH (07:19)
[2017-11-28] MEDS: ASPIRIN 81 MG PO SCH (07:19)
[2017-11-28] MEDS: FAMOTIDINE 20 MG/2 ML VIAL IV SCH ×2 (07:19→22:45)
[2017-11-28] MEDS: BISACODYL 10 MG SUPP RECTAL SCH (07:20)
[2017-11-28 07:32] LABS: Basophils % (A) 0 %; Eosinophils # (A) 0.1 k/uL (0-0.7); Eosinophils % (A) 1 %; HCT 38.3 % (39.0-53.0); HGB 12.7 gm/dL (13.0-17.5); Lymphocytes % (A) 6 %; MCH 30.4 pg (25.0-35.0); MCHC 33.1 g/dL (31.0-37.0); MCV 91.7 fL (80.0-100.0); Mean Platelet Volume 7.3; Monocytes # (A) 0.6 k/uL (0-1.0); Monocytes % (A) 4 %; Neutrophils # (A) 13.8 k/uL (1.3-7.7); Neutrophils % (A) 88 %; Platelet Count 476 k/uL (150-450); RBC 4.18 m/uL (4.30-5.90); RDW 13.1 % (11.5-15.5); WBC 15.6 k/uL (3.8-10.6)
[2017-11-28 07:56] LABS: ALT 67 U/L (21-72); AST 56 U/L (17-59); Albumin 2.6 g/dL (3.5-5.0); Alkaline Phosphatase 114 U/L (38-126); Anion Gap 12 mmol/L; Blood Urea Nitrogen 25 mg/dL (9-20); Calcium 8.3 mg/dL (8.4-10.2); Carbon Dioxide 23 mmol/L (22-30); Chloride 107 mmol/L (98-107); Glucose 87 mg/dL (74-99); Potassium 4.5 mmol/L (3.5-5.1); Sodium 142 mmol/L (137-145); Total Bilirubin 0.5 mg/dL (0.2-1.3); Total Protein 4.8 g/dL (6.3-8.2)
[2017-11-28] MEDS: ACETAMINOPHEN IV (For NPO) 1,000 MG in EMPTY BAG 1 BAG IVPB SCH ×2 (09:09→15:37)
[2017-11-28] MEDS: D5-0.45% NACL WITH KCL 20MEQ/L 1,000 ML IV SCH (09:09)
--- NOTE | 2017-11-28 12:57 | P.PN ---
Subjective Progress Note Date: 11/28/17 Principal diagnosis: Perforated cholecystitis Patient doing well. Pain is improved. GALILEA drain remained serosanguineous. White blood cell count improved at 15. He is afebrile. He is tolerating diet. Plans are for rehab at this time. Objective - Vital Signs Vital signs: Vital Signs Temp 97.1 F L 11/28/17 07:00 Pulse 78 11/28/17 07:00 Resp 17 11/28/17 07:05 BP 134/92 11/28/17 07:00 Pulse Ox 93 L 11/28/17 07:00 Intake & Output 11/27/17 11/28/17 11/28/17 18:59 06:59 18:59 Intake Total 1400 Output Total 150 300 540 Balance -150 1100 -540 Intake: IV 900 ACETAMINOPHEN IV (For NPO 100 ) 1,000 mg In Empty Bag 1 bag @ 400 mls/hr IVPB Q8HR [facility] Rx#:[id number] Ampicillin-Sulbactam 3 gm 200 In Sodium Chloride 0.9% 100 ml @ 100 mls/hr IVPB Q6HR [facility] Rx#:[id number] D5-0.45% NaCl with KCl 600 20Meq/l 1,000 ml @ 75 mls /hr IV .[id number] [facility] Rx#: [id number] Intake, IV Titration 100 Amount metroNIDAZOLE-NS PMX 500 100 mg In Saline 1 100ml.bag @ 100 mls/hr IVPB Q8HR [facility] Rx#:[id number] Oral 400 Output: Drainage 0 40 Right Lower Abdomen 0 40 Urine 150 300 500 Other: Voiding Method Urinal Urinal Urinal # Voids 2 1 - Exam Abdomen: Soft, nondistended, incision clean and dry, wick dressings were changed. - Labs CBC & Chem 7: 11/28/17 07:13 11/28/17 07:13 Labs: Abnormal Lab Results - Last 24 Hours (Table) 11/28/17 11/28/17 Range/Units 07:13 07:13 WBC 15.6 H (3.8-10.6) k/uL RBC 4.18 L (4.30-5.90) m/uL Hgb 12.7 L (13.0-17.5) gm/dL Hct 38.3 L (39.0-53.0) % Plt Count 476 H (150-450) k/uL Neutrophils # 13.8 H (1.3-7.7) k/uL BUN 25 H (9-20) mg/dL Calcium 8.3 L (8.4-10.2) mg/dL Total Protein 4.8 L (6.3-8.2) g/dL Albumin 2.6 L (3.5-5.0) g/dL Microbiology - Last 24 Hours (Table) 11/25/17 13:00 Anaerobic Culture - Preliminary Abdomen 11/25/17 13:00 Gram Stain - Final Abdomen Wound Culture - Final Escherichia coli Assessment and Plan (1) Acute cholecystitis Narrative/Plan: Continue local wound care. Ambulate. Continue rehab. Possible transfer tomorrow. Current Visit: Yes Status: Acute Code(s): K81.0 - ACUTE CHOLECYSTITIS SNOMED Code(s): 43613916
--- NOTE | 2017-11-28 13:38 | P.PN ---
Subjective RIKI This is a pleasant 82 years old lady with past medical history of back surgery heart cath who presents because of upper abdominal pain radiating to the back she underwent CAT scan and ultrasound of the gastrointestinal tract and showing acute cholecystitis with large gallstone primary surgical team admitted the patient for surgical cholecystectomy, patient is found to have perforated gallbladder and there was mild throughout the whole abdominal cavity, patient was admitted to the intensive care unit for further care, pulmonary consultation on the case Subjective Patient is seen and examined by me at bedside No new complaints No CP/CO B, no new change in urine or bowel habits, no fever Patient looks more awake today, pt states he feels better Objective - Vital Signs Vital signs: Vital Signs Temp 97.1 F L 11/28/17 07:00 Pulse 78 11/28/17 07:00 Resp 17 11/28/17 07:05 BP 134/92 11/28/17 07:00 Pulse Ox 93 L 11/28/17 07:00 Intake & Output 11/27/17 11/28/17 11/28/17 18:59 06:59 18:59 Intake Total 1400 Output Total 150 300 540 Balance -150 1100 -540 Intake: IV 900 ACETAMINOPHEN IV (For NPO 100 ) 1,000 mg In Empty Bag 1 bag @ 400 mls/hr IVPB Q8HR [facility] Rx#:[id number] Ampicillin-Sulbactam 3 gm 200 In Sodium Chloride 0.9% 100 ml @ 100 mls/hr IVPB Q6HR [facility] Rx#:[id number] D5-0.45% NaCl with KCl 600 20Meq/l 1,000 ml @ 75 mls /hr IV .[id number] [facility] Rx#: [id number] Intake, IV Titration 100 Amount metroNIDAZOLE-NS PMX 500 100 mg In Saline 1 100ml.bag @ 100 mls/hr IVPB Q8HR [facility] Rx#:[id number] Oral 400 Output: Drainage 0 40 Right Lower Abdomen 0 40 Urine 150 300 500 Other: Voiding Method Urinal Urinal Urinal # Voids 2 1 - Exam Constitutional: No acute distress, conversant, pleasant Eyes: Anicteric sclerae, moist conjunctiva, no lid-lag PERRLA ENMT: NC/AT Oropharynx clear, no erythema, exudates Neck: Supple, FROM, no masses, or JVD No carotid bruits No thyromegaly Lungs: Clear to auscultation Clear to percussion Normal respiratory effort, no accessory muscle use Cardiovascular: Heart regular in rate and rhythm, No murmurs, gallops, or rubs No peripheral edema Abdominal: Soft Nontender, no guarding, rebound or rigidity Abdomen moving with respiration Normoactive bowel sounds No hepatomegaly, No splenomegaly No palpable mass abdominal wall incision looks closed with a dressing, no signs symptoms of bleeding or inflammation in the surrounding skin Skin: Normal temperature, tone, texture, turgor No induration No subcutaneous nodules No rash, lesions No ulcers Extremities: No digital cyanosis No clubbing Pedal pulses intact and symmetrical Radial pulses intact and symmetrical Normal gait and station No calf tenderness Psychiatric: Alert and oriented to person, place and time Appropriate affect Intact judgement Neuro: Muscles Strength 5/5 in all 4 extremities Sensation to light touch grossly present throughout Cranial nerves II-XII grossly intact No focal sensory deficits - Labs CBC & Chem 7: 11/28/17 07:13 11/28/17 07:13 Labs: Abnormal Lab Results - Last 24 Hours (Table) 11/28/17 11/28/17 Range/Units 07:13 07:13 WBC 15.6 H (3.8-10.6) k/uL RBC 4.18 L (4.30-5.90) m/uL Hgb 12.7 L (13.0-17.5) gm/dL Hct 38.3 L (39.0-53.0) % Plt Count 476 H (150-450) k/uL Neutrophils # 13.8 H (1.3-7.7) k/uL BUN 25 H (9-20) mg/dL Calcium 8.3 L (8.4-10.2) mg/dL Total Protein 4.8 L (6.3-8.2) g/dL Albumin 2.6 L (3.5-5.0) g/dL Microbiology - Last 24 Hours (Table) 11/25/17 13:00 Anaerobic Culture - Preliminary Abdomen 11/25/17 13:00 Gram Stain - Final Abdomen Wound Culture - Final Escherichia coli Assessment and Plan Assessment: Status post open cholecystectomy for perforated gallbladder postop day #0 Hypertension History of coronary artery disease status post cardiac cath leukocytosis positive wound culture Plan: Patient is admitted to the intensive care unit for further care sourcing assistant consult is appreciated, patient's vitals looks stable with temporal tachypnea, patient is already on Unasyn and GI and DVT prophylaxis, continue with pain treatment Discussed with the and daughter at bedside family they want the patient to be DO NOT RESUSCITATE , DO NOT INTUBATE Prognosis is guarded given the severity of his condition and advanced age and other co-morbidities patient is already on antibiotic, Unasyn, urine culture is pending, wound culture is shows many gram-negative bacilli, Leukocytsosis is improving today, c/w antibiotics,flagyl and unasyn d/w staff
[2017-11-29] MEDS: ACETAMINOPHEN IV (For NPO) 1,000 MG in EMPTY BAG 1 BAG IVPB SCH ×2 (00:01→07:36)
[2017-11-29] MEDS: AMPICILLIN-SULBACTAM 3 GM in SODIUM CHLORIDE 0.9% 100 ML IVPB SCH ×4 (00:20→17:26)
[2017-11-29] MEDS: metroNIDAZOLE-NS PMX 500 MG in SALINE 1 100ML.BAG IVPB SCH ×3 (01:49→15:22)
[2017-11-29] MEDS: HEPARIN SODIUM,PORCINE 5,000 UNIT/ML 1 ML VIAL SQ SCH ×3 (01:50→17:30)
[2017-11-29] MEDS: D5-0.45% NACL WITH KCL 20MEQ/L 1,000 ML IV SCH ×2 (02:48→17:26)
[2017-11-29] MEDS: MORPHINE ORAL SOLN 10 MG/5 ML CUP PO PRN ×2 (05:21→12:14)
[2017-11-29 07:59] LABS: Basophils % (A) 0 %; Eosinophils # (A) 0.2 k/uL (0-0.7); Eosinophils % (A) 1 %; HCT 41.2 % (39.0-53.0); HGB 13.2 gm/dL (13.0-17.5); Lymphocytes # (A) 0.9 k/uL (1.0-4.8); Lymphocytes % (A) 6 %; MCH 29.7 pg (25.0-35.0); MCHC 32.1 g/dL (31.0-37.0); MCV 92.3 fL (80.0-100.0); Mean Platelet Volume 7.5; Monocytes # (A) 0.7 k/uL (0-1.0); Monocytes % (A) 5 %; Neutrophils % (A) 87 %; Platelet Count 468 k/uL (150-450); RBC 4.46 m/uL (4.30-5.90); RDW 13.2 % (11.5-15.5)
[2017-11-29] MEDS: BISACODYL 10 MG SUPP RECTAL SCH (07:59)
[2017-11-29] MEDS: ASPIRIN 81 MG PO SCH (07:59)
[2017-11-29] MEDS: METOPROLOL TARTRATE 25 MG TAB PO SCH ×2 (07:59→19:59)
[2017-11-29] MEDS: CLOPIDOGREL 75 MG TAB PO SCH (07:59)
[2017-11-29] MEDS: FAMOTIDINE 20 MG/2 ML VIAL IV SCH ×2 (07:59→19:59)
[2017-11-29 08:09] LABS: ALT 62 U/L (21-72); AST 44 U/L (17-59); Albumin 2.3 g/dL (3.5-5.0); Alkaline Phosphatase 93 U/L (38-126); Anion Gap 11 mmol/L; Blood Urea Nitrogen 13 mg/dL (9-20); Calcium 8.5 mg/dL (8.4-10.2); Carbon Dioxide 23 mmol/L (22-30); Chloride 106 mmol/L (98-107); Glucose 99 mg/dL (74-99); Potassium 4.5 mmol/L (3.5-5.1); Sodium 140 mmol/L (137-145); Total Bilirubin 0.5 mg/dL (0.2-1.3); Total Protein 4.5 g/dL (6.3-8.2)
--- NOTE | 2017-11-29 08:20 | P.PN ---
Subjective Progress Note Date: 11/29/17 Principal diagnosis: Perforated cholecystitis Patient appears well. States he is not hungry today. Pain is minimal. GALILEA drain serosanguineous. White blood cell count improved at 15.0. Objective - Vital Signs Vital signs: Vital Signs Temp 97.6 F 11/29/17 06:40 Pulse 65 11/29/17 06:40 Resp 12 11/29/17 00:45 BP 147/74 11/29/17 06:40 Pulse Ox 95 11/29/17 06:40 Intake & Output 11/28/17 11/29/17 11/29/17 18:59 06:59 18:59 Output Total 850 60 Balance -850 -60 Output: Drainage 50 60 Right Lower Abdomen 50 60 Urine 800 Other: Voiding Method Urinal Urinal Diaper # Voids 2 - Exam Abdomen: Soft, nondistended, mild incisional tenderness, 3 wound sites clean - Labs CBC & Chem 7: 11/29/17 06:50 11/28/17 07:13 Labs: Abnormal Lab Results - Last 24 Hours (Table) 11/29/17 Range/Units 06:50 WBC 15.0 H (3.8-10.6) k/uL Plt Count 468 H (150-450) k/uL Neutrophils # 13.0 H (1.3-7.7) k/uL Lymphocytes # 0.9 L (1.0-4.8) k/uL Assessment and Plan (1) Acute cholecystitis Narrative/Plan: Continue encouraging oral intake. Continue PT. Continue antibiotics. Monitor CBC. Current Visit: Yes Status: Acute Code(s): K81.0 - ACUTE CHOLECYSTITIS SNOMED Code(s): 71413502
[2017-11-29] MEDS ORDERED: ALBUTEROL NEBULIZED 2.5 MG/3 ML INHALATION PRN (12:42)
[2017-11-29] MEDS: traMADol 50 MG TAB PO PRN ×2 (13:18→19:59)
[2017-11-29] MEDS ORDERED: MORPHINE ORAL SOLN 10 MG/5 ML CUP PO PRN (15:37)
--- NOTE | 2017-11-29 15:51 | P.PN ---
Subjective RIKI This is a pleasant 82 years old lady with past medical history of back surgery heart cath who presents because of upper abdominal pain radiating to the back she underwent CAT scan and ultrasound of the gastrointestinal tract and showing acute cholecystitis with large gallstone primary surgical team admitted the patient for surgical cholecystectomy, patient is found to have perforated gallbladder and there was mild throughout the whole abdominal cavity, patient was admitted to the intensive care unit for further care, pulmonary consultation on the case Subjective Patient is seen and examined by me at bedside No new complaints No CP/CO B, no new change in urine or bowel habits, no fever Patient looks more awake today, pt states he feels better Objective - Vital Signs Vital signs: Vital Signs Temp 97.8 F 11/29/17 14:30 Pulse 74 11/29/17 13:31 Resp 16 11/29/17 14:30 BP 128/73 11/29/17 14:30 Pulse Ox 97 11/29/17 14:30 Intake & Output 11/28/17 11/29/17 11/29/17 18:59 06:59 18:59 Output Total 850 60 Balance -850 -60 Output: Drainage 50 60 Right Lower Abdomen 50 60 Urine 800 Other: Voiding Method Urinal Urinal Urinal Diaper Diaper # Voids 2 - Exam Constitutional: No acute distress, conversant, pleasant Eyes: Anicteric sclerae, moist conjunctiva, no lid-lag PERRLA ENMT: NC/AT Oropharynx clear, no erythema, exudates Neck: Supple, FROM, no masses, or JVD No carotid bruits No thyromegaly Lungs: Clear to auscultation Clear to percussion Normal respiratory effort, no accessory muscle use Cardiovascular: Heart regular in rate and rhythm, No murmurs, gallops, or rubs No peripheral edema Abdominal: Soft Nontender, no guarding, rebound or rigidity Abdomen moving with respiration Normoactive bowel sounds No hepatomegaly, No splenomegaly No palpable mass abdominal wall incision looks closed with a dressing, no signs symptoms of bleeding or inflammation in the surrounding skin Skin: Normal temperature, tone, texture, turgor No induration No subcutaneous nodules No rash, lesions No ulcers Extremities: No digital cyanosis No clubbing Pedal pulses intact and symmetrical Radial pulses intact and symmetrical Normal gait and station No calf tenderness Psychiatric: Alert and oriented to person, place and time Appropriate affect Intact judgement Neuro: Muscles Strength 5/5 in all 4 extremities Sensation to light touch grossly present throughout Cranial nerves II-XII grossly intact No focal sensory deficits - Labs CBC & Chem 7: 11/29/17 06:50 11/29/17 06:50 Labs: Abnormal Lab Results - Last 24 Hours (Table) 11/29/17 11/29/17 Range/Units 06:50 06:50 WBC 15.0 H (3.8-10.6) k/uL Plt Count 468 H (150-450) k/uL Neutrophils # 13.0 H (1.3-7.7) k/uL Lymphocytes # 0.9 L (1.0-4.8) k/uL Total Protein 4.5 L (6.3-8.2) g/dL Albumin 2.3 L (3.5-5.0) g/dL Assessment and Plan Assessment: Status post open cholecystectomy for perforated gallbladder postop day #0 Hypertension History of coronary artery disease status post cardiac cath leukocytosis positive wound culture Plan: Patient is admitted to the intensive care unit for further care customs compliance specialist consult is appreciated, patient's vitals looks stable with temporal tachypnea, patient is already on Unasyn and GI and DVT prophylaxis, continue with pain treatment Discussed with the and daughter at bedside family they want the patient to be DO NOT RESUSCITATE , DO NOT INTUBATE Prognosis is guarded given the severity of his condition and advanced age and other co-morbidities patient is already on antibiotic, Unasyn, , Leukocytsosis is improving today, c/ w antibiotics,flagyl and unasyn , wound C/S: E coli, sensitive to ampicillin but wbc still 15K, DC flagyl and call ID consult when i saw the pt today he was taking more pain medication and he was sleepy but easy to arouse and he was oriented he knew which hospital it is and why he was in the hospital d/w staff
[2017-11-29] MEDS: ACETAMINOPHEN TAB 500 MG TAB PO SCH (16:55)
[2017-11-29] MEDS: FAMOTIDINE 20 MG TAB PO SCH (20:05)
[2017-11-29] MEDS ORDERED: metroNIDAZOLE 500 MG TAB PO SCH (22:00)
--- NOTE | 2017-11-30 00:20 | P.CONS ---
History of Present Illness - Reason for Consult Consult date: 11/29/17 - Chief Complaint abdominal pain - History of Present Illness 82-year-old male presented to the Emergency room with severe abdominal pain. Is was related that admission he was writhing in pain. Imaging was performed and he was seen by Dr. Horn of surgery. Evidence of significant cholecystitis was found and constantly the patient was taken to the operating room where is evidence of perforated cholecystitis. Cholecystectomy was performed and abdominal lavage. The patient has had significant leukocytosis since procedure and some low-grade fever. With his current lack of improvement we infectious diseases consultation was requested. The patient' s is present and does relate he has underlying dementia and with current surgery and infection this has worsened. He is not eating and is difficult to encourage.patient was recently hospitalized with acute myocardial infarction and was started have some recovery before the onset of the abdominal pain. Review of Systems HEENT:Denies headache or acute visual change. Denies sinus or mouth discomforts. Denies neck stiffness or pain. Denies significant oral cavity pain. Denies difficulty on swallowing. Lungs: Denies significant shortness of breath, cough, sputum production, or hemoptysis. Cardiovascular: Denies significant shortness of breath, chest pain, chest wall pain, orthopnea, dyspnea on exertion, syncope Gastrointestinal:continues to have abdominal pain a Musculoskeletal: denies significant myalgias or arthralgias. No new joint swelling. Denies new back pain. Skin: Denies new rash or lesions. No new ulcers or wounds are related.. Neuro: Denies headache or visual change. Denies any new onset weakness or difficulty with ambulation. Denies falls or seizures. Psychiatric:having anxiety and confusion Endocrine: positive fatigue and weight loss ROS unobtainable: due to mental status Past Medical History Past Medical History: No Reported History History of Any Multi-Drug Resistant Organisms: None Reported Past Surgical History: Back Surgery Additional Past Surgical History / Comment(s): Heart Cath 10/15 2 stents to the RCA acute [place] Past Anesthesia/Blood Transfusion Reactions: No Reported Reaction Date of Last Stent Placement:: 10/15/17 Past Psychological History: No Psychological Hx Reported Additional Psychological History / Comment(s): is having some onset of dementia that has been worsening and now acutely worsened with current illness Smoking Status: Former smoker Past Alcohol Use History: Daily Additional Past Alcohol Use History / Comment(s): states 2 light beers/day Past Drug Use History: None Reported - Past Family History Father Family Medical History: Renal Disease Mother Family Medical History: Myocardial Infarction ([place]) Medications and Allergies Home Medications and Allergies Comment(s): Current Medications Acetaminophen (Tylenol Tab) 1,000 mg PO Q8HR [facility] Last Admin: 11/29/17 16:55 Dose: Not Given Albuterol Sulfate (Ventolin Nebulized) 2.5 mg INHALATION RT-Q6H PRN PRN Reason: Shortness Of Breath Last Admin: 11/29/17 13:19 Dose: 2.5 mg Aspirin (Aspirin) 81 mg PO DAILY [facility] Last Admin: 11/29/17 07:59 Dose: 81 mg Bisacodyl (Dulcolax) 10 mg RECTAL DAILY [facility] Last Admin: 11/29/17 07:59 Dose: Not Given Clopidogrel Bisulfate (Plavix) 75 mg PO DAILY [facility] Last Admin: 11/29/17 07:59 Dose: 75 mg Famotidine (Pepcid) 20 mg PO Q12HR [facility] Last Admin: 11/29/17 20:05 Dose: Not Given Heparin Sodium (Porcine) (Heparin) 5,000 unit SQ Q8HR [facility] Last Admin: 11/29/17 17:30 Dose: 5,000 unit Ampicillin Sodium/Sulbactam (Sodium 3 gm/ Sodium Chloride) 100 mls @ 100 mls/ hr IVPB Q6HR [facility] Last Admin: 11/29/17 17:26 Dose: 100 mls/hr Potassium Chloride/Dextrose/Sod Cl (D5%-1/2ns-Kcl 20 Meq/L Iv Solution) 1,000 mls @ 75 mls/hr IV .[id number] [facility] Last Admin: 11/29/17 17:26 Dose: 75 mls/hr Metoclopramide HCl (Reglan) 10 mg IVP Q6H PRN PRN Reason: Nausea And Vomiting Metoprolol Tartrate (Lopressor) 25 mg PO BID [facility] Last Admin: 11/29/17 19:59 Dose: 25 mg Metronidazole (Flagyl) 500 mg PO TID [facility] Last Admin: 11/29/17 22:04 Dose: 500 mg Morphine Sulfate (Morphine Oral [place] 2mg/Ml) 6 mg PO Q4HR PRN PRN Reason: MODERATE Pain Naloxone HCl (Narcan) 0.2 mg IV Q2M PRN PRN Reason: Opioid Reversal Ondansetron HCl (Zofran) 4 mg IVP Q8HR PRN PRN Reason: Nausea And Vomiting Tramadol HCl (Ultram) 50 mg PO QID PRN PRN Reason: pain Last Admin: 11/29/17 19:59 Dose: 50 mg Home Medications Medication Instructions Recorded Confirmed Type Donepezil [Aricept] 10 mg PO DAILY 10/15/17 11/24/17 History Multivitamin with Iron 1 tab PO DAILY 10/15/17 11/24/17 History [Multivitamins with Iron] Sertraline [Zoloft] 25 mg PO HS 10/15/17 11/24/17 History Tamsulosin [Flomax] 0.4 mg PO W/SUPPER 10/15/17 11/24/17 History Aspirin 81 mg PO DAILY #30 chew 10/17/17 11/24/17 Rx Atorvastatin [Lipitor] 80 mg PO HS #30 tab 10/17/17 11/24/17 Rx Clopidogrel [Plavix] 75 mg PO DAILY #30 tab 10/17/17 11/24/17 Rx Lisinopril [Zestril] 5 mg PO DAILY #30 tab 10/17/17 11/24/17 Rx Metoprolol Tartrate [Lopressor] 25 mg PO BID #60 tab 10/17/17 11/24/17 Rx Nitroglycerin Sl Tabs [Nitrostat] 0.4 mg SUBLINGUAL Q5M PRN #25 tab 10/17/17 Rx Cholecalciferol [Vitamin D3] 1,000 unit PO DAILY 11/24/17 11/24/17 History Allergies Allergy/AdvReac Type Severity Reaction Status Date / Time No Known Allergies Allergy Verified 11/24/17 15:08 Physical Exam Vitals: Vital Signs Temp Pulse Pulse Resp BP Pulse Ox 11/29/17 19:10 97.9 F 73 16 129/93 95 11/29/17 17:00 95 11/29/17 14:30 97.8 F 16 128/73 97 11/29/17 13:31 74 16 11/29/17 13:19 73 16 11/29/17 06:40 97.6 F 65 147/74 95 11/29/17 00:45 97 F L 62 12 145/83 96 11/29/17 00:00 16 Intake and Output 11/29/17 11/29/17 11/30/17 14:59 22:59 06:59 Output Total 20 200 Balance -20 -200 Output: Drainage 20 Right Lower Abdomen 20 Urine 200 Other: Voiding Method Urinal Diaper 82-year-old male sitting up in chair, arousable but does get irritable quite quick HEENT: Anicteric conjunctiva are pink and moist nasal mucosa grossly intact without significant lesions, there is no thrush.oral mucosa dry Neck: The neck is supple without significant lymphadenopathy or thyromegaly. Lungs: there is symmetricair entry, few expiratory wheezes, no bronchial sounds no dullness or egophony Heart: irregular with a positive S4 There is no significant murmur click or rub , PMI was nondisplaced. Abdomen: few bowel sounds soft and quite tender right upper quadrantsno organomegaly was palpable. abdomen is nonrigid. Extremities: The upper extremities have excellent pulses they are symmetric, no significant petechiae or telangiectasia. No splinter hemorrhages were noted. The lower extremities have mild edema. The peripheral pulses were 2+ and symmetric. Neuro: Awake alert oriented to person seem to recognize his but did become irritable rapidly Results CBC & Chem 7: 11/29/17 06:50 11/29/17 06:50 Labs: Abnormal Lab Results - Last 24 Hours (Table) 11/29/17 11/29/17 Range/Units 06:50 06:50 WBC 15.0 H (3.8-10.6) k/uL Plt Count 468 H (150-450) k/uL Neutrophils # 13.0 H (1.3-7.7) k/uL Lymphocytes # 0.9 L (1.0-4.8) k/uL Total Protein 4.5 L (6.3-8.2) g/dL Albumin 2.3 L (3.5-5.0) g/dL Microbiology - Last 24 Hours (Table) 11/25/17 13:00 Anaerobic Culture - Final Abdomen Anaerobic Gm Negative Bacilli Laboratory Results WBC 15.0 k/uL (3.8-10.6) H 11/29/17 06:50 RBC 4.46 m/uL (4.30-5.90) 11/29/17 06:50 Hgb 13.2 gm/dL (13.0-17.5) 11/29/17 06:50 Hct 41.2 % (39.0-53.0) 11/29/17 06:50 MCV 92.3 fL (80.0-100.0) 11/29/17 06:50 MCH 29.7 pg (25.0-35.0) 11/29/17 06:50 MCHC 32.1 g/dL (31.0-37.0) 11/29/17 06:50 RDW 13.2 % (11.5-15.5) 11/29/17 06:50 Plt Count 468 k/uL (150-450) H 11/29/17 06:50 Neutrophils % 87 % 11/29/17 06:50 Neutrophils % (Manual) 74 % 11/25/17 11:09 Band Neutrophils % 21 % 11/25/17 11:09 Lymphocytes % 6 % 11/29/17 06:50 Lymphocytes % (Manual) 2 % 11/25/17 11:09 Monocytes % 5 % 11/29/17 06:50 Monocytes % (Manual) 1 % 11/25/17 11:09 Eosinophils % 1 % 11/29/17 06:50 Basophils % 0 % 11/29/17 06:50 Metamyelocytes % 3 % 11/25/17 11:09 Myelocytes % 1 % 11/25/17 11:09 Neutrophils # 13.0 k/uL (1.3-7.7) H 11/29/17 06:50 Neutrophils # (Manual) 19.10 k/uL (1.3-7.7) H 11/25/17 11:09 Lymphocytes # 0.9 k/uL (1.0-4.8) L 11/29/17 06:50 Lymphocytes # (Manual) 0.40 k/uL (1.0-4.8) L 11/25/17 11:09 Monocytes # 0.7 k/uL (0-1.0) 11/29/17 06:50 Monocytes # (Manual) 0.20 k/uL (0-1.0) 11/25/17 11:09 Eosinophils # 0.2 k/uL (0-0.7) 11/29/17 06:50 Basophils # 0.0 k/uL (0-0.2) 11/29/17 06:50 Metamyelocytes # (Man) 0.61 k/uL (0) H 11/25/17 11:09 Myelocytes # (Manual) 0.20 k/uL (0) H 11/25/17 11:09 Nucleated RBCs 0 /100 WBC (0-0) 11/25/17 11:09 Manual Slide Review Performed 11/25/17 11:09 Poikilocytosis (manual Present 11/25/17 11:09 Crenated Cell Present 11/25/17 11:09 PT 11.9 sec (9.0-12.0) 11/24/17 15:15 INR 1.3 (<1.2) H 11/24/17 15:15 APTT 21.3 sec (22.0-30.0) L 11/24/17 15:15 Sodium 140 mmol/L (137-145) 11/29/17 06:50 Potassium 4.5 mmol/L (3.5-5.1) 11/29/17 06:50 Chloride 106 mmol/L (98-107) 11/29/17 06:50 Carbon Dioxide 23 mmol/L (22-30) 11/29/17 06:50 Anion Gap 11 mmol/L 11/29/17 06:50 BUN 13 mg/dL (9-20) 11/29/17 06:50 Creatinine 0.69 mg/dL (0.66-1.25) 11/29/17 06:50 Est GFR (CKD-EPI)AfAm >90 (>60 ml/min/1.73 sqM) 11/29/17 06:50 Est GFR (CKD-EPI)NonAf 87 (>60 ml/min/1.73 sqM) 11/29/17 06:50 Glucose 99 mg/dL (74-99) 11/29/17 06:50 POC Glucose (mg/dL) 84 mg/dL (75-99) 11/25/17 15:24 POC Glu Doll Dresser ID Valeria Cummins 11/25/17 15:24 Plasma Lactic Acid Jasbir 1.4 mmol/L (0.7-2.0) 11/24/17 15:15 Calcium 8.5 mg/dL (8.4-10.2) 11/29/17 06:50 Phosphorus 4.0 mg/dL (2.5-4.5) 11/26/17 04:35 Magnesium 2.2 mg/dL (1.6-2.3) 11/26/17 04:35 Total Bilirubin 0.5 mg/dL (0.2-1.3) 11/29/17 06:50 AST 44 U/L (17-59) 11/29/17 06:50 ALT 62 U/L (21-72) 11/29/17 06:50 Alkaline Phosphatase 93 U/L (38-126) 11/29/17 06:50 Total Creatine Kinase 35 U/L (55-170) L 11/24/17 15:15 CK-MB (CK-2) 1.1 ng/mL (0.0-2.4) 11/24/17 15:15 CK-MB (CK-2) Rel Index 3.1 11/24/17 15:15 Troponin I <0.012 ng/mL (0.000-0.034) 11/24/17 15:15 Total Protein 4.5 g/dL (6.3-8.2) L 11/29/17 06:50 Albumin 2.3 g/dL (3.5-5.0) L 11/29/17 06:50 Amylase 56 U/L (30-110) 11/24/17 15:15 Lipase 71 U/L (23-300) 11/24/17 15:15 Urine Color Dark Brown 11/25/17 15:35 Urine Appearance Cloudy (Clear) 11/25/17 15:35 Urine pH 5.5 (5.0-8.0) 11/25/17 15:35 Ur Specific [place] 1.044 (1.001-1.035) H 11/25/17 15:35 Urine Protein 1+ (Negative) H 11/25/17 15:35 Urine Glucose (UA) Negative (Negative) 11/25/17 15:35 Urine Ketones Trace (Negative) H 11/25/17 15:35 Urine Blood Trace (Negative) H 11/25/17 15:35 Urine Nitrite Negative (Negative) 11/25/17 15:35 Urine Bilirubin 1+ (Negative) H 11/25/17 15:35 Urine Urobilinogen 3.0 mg/dL (<2.0) 11/25/17 15:35 Ur Leukocyte Esterase Negative (Negative) 11/25/17 15:35 Urine RBC 12 /hpf (0-5) H 11/25/17 15:35 Urine WBC 4 /hpf (0-5) 11/25/17 15:35 Ur Squamous Epith Cells <1 /hpf (0-4) 11/25/17 15:35 Urine Bacteria Rare /hpf (None) H 11/25/17 15:35 Cellular Casts 7 /lpf (0) 11/25/17 15:35 Hyaline Casts 9 /lpf (0-2) H 11/25/17 15:35 Granular Casts 21 /lpf (0) 11/25/17 15:35 Urine Mucus Rare /hpf (None) H 11/25/17 15:35 Blood Type O Positive 11/25/17 11:09 Blood Type Recheck No 11/25/17 11:09 Antibody Screen NEGATIVE 11/25/17 11:09 Transfuse Platelets 11/25/17 11/25/17 13:05 Spec Expiration Date 11/28/20170 11/25/17 11:09 Microbiology 11/25/17 13:00 Abdomen Anaerobic Culture - Final Anaerobic Gm Negative Bacilli 11/25/17 13:00 Abdomen Gram Stain - Final 11/25/17 13:00 Abdomen Wound Culture - Final Escherichia coli 11/25/17 15:35 Urine,Catheterized Urine Culture - Final Assessment and Plan (1) Acute cholecystitis Narrative/Plan: 82-year-old male presents to hospital with severe abdominal pain, related in the emergency center he was writhing in pain. He was seen by surgery and taken to the operating room for his acute perforated cholecystitis. Postoperatively he has been having ongoing leukocytosis up to 26.5 now with some improvement down to 15. Patient continues to have abdominal pain and not feeling well. Appetite is poor and is having some difficulties with his baseline confusion. Cultures show evidence of E. coli that is not resistant however patient is having difficulties with the leukocytosis and altered mental status. Concern that the metronidazole could be worsening his mental status and altering his appetite. Fiscally that will be discontinued. In to enhance activity into the biliary tract will change Unasyn to ertapenem and monitor. Leukocytosis will be tracked. Hopefully with antibiotic changes and some further hydration his appetite will improve. And with withdrawal of metronidazole hopefully mental status can also improved. Current Visit: Yes Status: Acute Code(s): K81.0 - ACUTE CHOLECYSTITIS SNOMED Code(s): 12933204 (2) Abdominal pain Current Visit: Yes Status: Acute Code(s): R10.9 - UNSPECIFIED ABDOMINAL PAIN SNOMED Code(s): 47710502 (3) Leukocytosis Current Visit: Yes Status: Acute Code(s): D72.829 - ELEVATED WHITE BLOOD CELL COUNT, UNSPECIFIED SNOMED Code(s): 923092832 (4) Altered mental state Current Visit: Yes Status: Acute Code(s): R41.82 - ALTERED MENTAL STATUS, UNSPECIFIED SNOMED Code(s): 626973821
[2017-11-30] MEDS: HEPARIN SODIUM,PORCINE 5,000 UNIT/ML 1 ML VIAL SQ SCH ×4 (00:32→23:19)
[2017-11-30] MEDS: ACETAMINOPHEN TAB 500 MG TAB PO SCH ×4 (00:33→23:18)
[2017-11-30] MEDS: AMPICILLIN-SULBACTAM 3 GM in SODIUM CHLORIDE 0.9% 100 ML IVPB SCH (02:31)
[2017-11-30 08:12] LABS: Basophils % (A) 0 %; Eosinophils # (A) 0.5 k/uL (0-0.7); Eosinophils % (A) 3 %; HCT 40.8 % (39.0-53.0); HGB 13.3 gm/dL (13.0-17.5); Lymphocytes # (A) 1.1 k/uL (1.0-4.8); Lymphocytes % (A) 7 %; MCHC 32.5 g/dL (31.0-37.0); MCV 92.2 fL (80.0-100.0); Mean Platelet Volume 7.5; Monocytes # (A) 0.8 k/uL (0-1.0); Monocytes % (A) 5 %; Neutrophils # (A) 13.7 k/uL (1.3-7.7); Neutrophils % (A) 84 %; Platelet Count 499 k/uL (150-450); RBC 4.43 m/uL (4.30-5.90); RDW 13.1 % (11.5-15.5); WBC 16.3 k/uL (3.8-10.6)
[2017-11-30] MEDS: BISACODYL 10 MG SUPP RECTAL SCH (08:49)
[2017-11-30] MEDS: CLOPIDOGREL 75 MG TAB PO SCH (08:50)
[2017-11-30] MEDS: FAMOTIDINE 20 MG TAB PO SCH ×2 (08:50→20:03)
[2017-11-30] MEDS: METOPROLOL TARTRATE 25 MG TAB PO SCH ×2 (08:50→20:03)
[2017-11-30] MEDS: ASPIRIN 81 MG PO SCH (08:51)
[2017-11-30] MEDS: ERTAPENEM 1 GM in SODIUM CHLORIDE 0.9% 50 ML IVPB SCH (08:51)
[2017-11-30 09:20] LABS: ALT 105 U/L (21-72); AST 78 U/L (17-59); Albumin 2.4 g/dL (3.5-5.0); Alkaline Phosphatase 110 U/L (38-126); Anion Gap 8 mmol/L; Blood Urea Nitrogen 12 mg/dL (9-20); Calcium 8.6 mg/dL (8.4-10.2); Carbon Dioxide 24 mmol/L (22-30); Chloride 104 mmol/L (98-107); Glucose 116 mg/dL (74-99); Potassium 4.4 mmol/L (3.5-5.1); Sodium 136 mmol/L (137-145); Total Bilirubin 0.6 mg/dL (0.2-1.3); Total Protein 4.7 g/dL (6.3-8.2)
[2017-11-30] MEDS: D5-0.45% NACL WITH KCL 20MEQ/L 1,000 ML IV SCH ×2 (09:49→15:46)
[2017-11-30 09:58] VITALS: BMI 25.9
--- NOTE | 2017-11-30 13:36 | P.PN ---
<Aggie Avalos - Last Filed: 11/30/17 13:26> Subjective Progress Note Date: 11/30/17 82-year-old male seen at the bedside sitting up in a chair taking a full liquid diet. Currently denies nausea vomiting. Surgical dressing dry GALILEA drain right lower quadrant serosanguineous. White count trending down 16.3 this morning afebrile temp is 97 Postop November 25 laparoscopic with an open cholecystectomy for acute cholecystitis gangrenous perforated Objective - Vital Signs Vital signs: Vital Signs Temp 97.6 F 11/30/17 07:00 Pulse 65 11/30/17 07:00 Resp 14 11/30/17 07:40 BP 153/79 11/30/17 07:00 Pulse Ox 95 11/30/17 07:00 Intake & Output 11/29/17 11/30/17 11/30/17 18:59 06:59 18:59 Intake Total 950 360 Output Total 20 1655 Balance -20 -705 360 Weight 77.4 kg Intake: IV 600 D5-0.45% NaCl with KCl 600 20Meq/l 1,000 ml @ 75 mls /hr IV .[id number] [facility] Rx#: [id number] Oral 350 360 Output: Drainage 20 55 Right Lower Abdomen 20 55 Urine 1600 Straight 600 Other: Voiding Method Urinal Urinal Diaper # Voids 2 - Exam Physical exam Pleasant 82-year-old sitting up in a chair taking a full liquid diet at bedside Lungs adequate air movement bilaterally on room air no shortness of breath Heart S1-S2 audible regular Abdomen surgical dressing site dry GALILEA drain in place right lower quadrant few hypoactive bowel tones nondistended mild surgical tenderness tolerating full liquid diet no nausea no vomiting Extremities no edema noted - Labs CBC & Chem 7: 11/30/17 07:47 11/30/17 07:47 Labs: Abnormal Lab Results - Last 24 Hours (Table) 11/30/17 11/30/17 Range/Units 07:47 07:47 WBC 16.3 H (3.8-10.6) k/uL Plt Count 499 H (150-450) k/uL Neutrophils # 13.7 H (1.3-7.7) k/uL Sodium 136 L (137-145) mmol/L Creatinine 0.65 L (0.66-1.25) mg/dL Glucose 116 H (74-99) mg/dL AST 78 H (17-59) U/L ALT 105 H (21-72) U/L Total Protein 4.7 L (6.3-8.2) g/dL Albumin 2.4 L (3.5-5.0) g/dL Microbiology - Last 24 Hours (Table) 11/25/17 13:00 Anaerobic Culture - Final Abdomen Anaerobic Gm Negative Bacilli Assessment and Plan Assessment: Impression Present on admission right upper quadrant abdominal pain suspect due to acute gangrenous cholecystitis Ultrasound of the abdomen on admission showed a thickened gallbladder with a large stone in the neck of the gallbladder Postop November 25 laparoscopic with open cholecystectomy for gangrenous perforated calculus cholecystitis Present on admission leukocytosis improving Present on admission altered mental status improved Plan Continue postop surgical care Continue recommendations infectious disease Dr. Cowan DVT and GI prophylaxis Pain control PT OT eval Home meds as appropriate Further surgical recommendations pending The above impression and plan of care have been discussed and directed by signing physician. Aggie Avalos nurse practitioner acting as scribe for signing physician. <Carlos Manuel Blanchard - Last Filed: 11/30/17 17:09> Objective - Vital Signs Vital signs: Vital Signs Temp 98.0 F 11/30/17 14:56 Pulse 63 11/30/17 14:56 Resp 18 11/30/17 15:30 BP 128/66 11/30/17 14:56 Pulse Ox 96 11/30/17 14:56 Intake & Output 11/29/17 11/30/17 11/30/17 18:59 06:59 18:59 Intake Total 950 480 Output Total 20 1655 300 Balance -20 -705 180 Weight 77.4 kg Intake: IV 600 D5-0.45% NaCl with KCl 600 20Meq/l 1,000 ml @ 75 mls /hr IV .[id number] [facility] Rx#: [id number] Oral 350 480 Output: Drainage 20 55 Right Lower Abdomen 20 55 Urine 1600 300 Straight 600 Other: Voiding Method Urinal Urinal Diaper # Voids 2 - Labs CBC & Chem 7: 11/30/17 07:47 11/30/17 07:47 Labs: Abnormal Lab Results - Last 24 Hours (Table) 11/30/17 11/30/17 Range/Units 07:47 07:47 WBC 16.3 H (3.8-10.6) k/uL Plt Count 499 H (150-450) k/uL Neutrophils # 13.7 H (1.3-7.7) k/uL Sodium 136 L (137-145) mmol/L Creatinine 0.65 L (0.66-1.25) mg/dL Glucose 116 H (74-99) mg/dL AST 78 H (17-59) U/L ALT 105 H (21-72) U/L Total Protein 4.7 L (6.3-8.2) g/dL Albumin 2.4 L (3.5-5.0) g/dL Microbiology - Last 24 Hours (Table) 11/25/17 13:00 Anaerobic Culture - Final Abdomen Anaerobic Gm Negative Bacilli Assessment and Plan Assessment: As above. Antibiotics were modified yesterday. Patient complaining of mild incisional pain. GALILEA serous. LFTs up slightly today. We'll repeat labs tomorrow. Advance diet. (1) Acute cholecystitis Current Visit: Yes Status: Acute Code(s): K81.0 - ACUTE CHOLECYSTITIS SNOMED Code(s): 63830448
[2017-11-30] MEDS: traMADol 50 MG TAB PO PRN (14:03)
--- NOTE | 2017-11-30 18:41 | P.PN ---
Subjective RIKI This is a pleasant 82 years old lady with past medical history of back surgery heart cath who presents because of upper abdominal pain radiating to the back she underwent CAT scan and ultrasound of the gastrointestinal tract and showing acute cholecystitis with large gallstone primary surgical team admitted the patient for surgical cholecystectomy, patient is found to have perforated gallbladder and there was mild throughout the whole abdominal cavity, patient was admitted to the intensive care unit for further care, pulmonary consultation on the case Subjective Patient is seen and examined by me at bedside No new complaints No CP/CO B, no new change in urine or bowel habits, no fever Patient looks more awake today, pt states he feels better Objective - Vital Signs Vital signs: Vital Signs Temp 98.0 F 11/30/17 14:56 Pulse 63 11/30/17 14:56 Resp 18 11/30/17 15:30 BP 128/66 11/30/17 14:56 Pulse Ox 96 11/30/17 14:56 Intake & Output 11/29/17 11/30/17 11/30/17 18:59 06:59 18:59 Intake Total 950 480 Output Total 20 1655 320 Balance -20 -705 160 Weight 77.4 kg Intake: IV 600 D5-0.45% NaCl with KCl 600 20Meq/l 1,000 ml @ 75 mls /hr IV .[id number] [facility] Rx#: [id number] Oral 350 480 Output: Drainage 20 55 20 Right Lower Abdomen 20 55 20 Urine 1600 300 Straight 600 Other: Voiding Method Urinal Urinal Diaper # Voids 2 - Exam Constitutional: No acute distress, conversant, pleasant Eyes: Anicteric sclerae, moist conjunctiva, no lid-lag PERRLA ENMT: NC/AT Oropharynx clear, no erythema, exudates Neck: Supple, FROM, no masses, or JVD No carotid bruits No thyromegaly Lungs: Clear to auscultation Clear to percussion Normal respiratory effort, no accessory muscle use Cardiovascular: Heart regular in rate and rhythm, No murmurs, gallops, or rubs No peripheral edema Abdominal: Soft Nontender, no guarding, rebound or rigidity Abdomen moving with respiration Normoactive bowel sounds No hepatomegaly, No splenomegaly No palpable mass abdominal wall incision looks closed with a dressing, no signs symptoms of bleeding or inflammation in the surrounding skin Skin: Normal temperature, tone, texture, turgor No induration No subcutaneous nodules No rash, lesions No ulcers Extremities: No digital cyanosis No clubbing Pedal pulses intact and symmetrical Radial pulses intact and symmetrical Normal gait and station No calf tenderness Psychiatric: Alert and oriented to person, place and time Appropriate affect Intact judgement Neuro: Muscles Strength 5/5 in all 4 extremities Sensation to light touch grossly present throughout Cranial nerves II-XII grossly intact No focal sensory deficits - Labs CBC & Chem 7: 11/30/17 07:47 11/30/17 07:47 Labs: Abnormal Lab Results - Last 24 Hours (Table) 11/30/17 11/30/17 Range/Units 07:47 07:47 WBC 16.3 H (3.8-10.6) k/uL Plt Count 499 H (150-450) k/uL Neutrophils # 13.7 H (1.3-7.7) k/uL Sodium 136 L (137-145) mmol/L Creatinine 0.65 L (0.66-1.25) mg/dL Glucose 116 H (74-99) mg/dL AST 78 H (17-59) U/L ALT 105 H (21-72) U/L Total Protein 4.7 L (6.3-8.2) g/dL Albumin 2.4 L (3.5-5.0) g/dL Microbiology - Last 24 Hours (Table) 11/25/17 13:00 Anaerobic Culture - Final Abdomen Anaerobic Gm Negative Bacilli Assessment and Plan Assessment: Status post open cholecystectomy for perforated gallbladder postop day #0 Hypertension History of coronary artery disease status post cardiac cath leukocytosis positive wound culture Plan: pt is more awake today , he still complains from abd pain mostly related to surgery site Leukocytsosis is is around 15-16K, wound C/S: E coli, sensitive to ampicillin but wbc still 15K, DC flagyl and ID consult and input is appreciated pt unasyn abx is changed to ertapenem, follow WBC GI and DVT prophylaxis, continue with pain treatment Discussed with the and daughter at bedside family they want the patient to be DO NOT RESUSCITATE , DO NOT INTUBATE Prognosis is guarded given the severity of his condition and advanced age and other co-morbidities d/w staff
--- NOTE | 2017-12-01 00:17 | P.PN ---
Subjective Progress Note Date: 11/30/17 Sepsis 82-year-old male presented to the Emergency room with severe abdominal pain. Is was related that admission he was writhing in pain. Imaging was performed and he was seen by Dr. Horn of surgery. Evidence of significant cholecystitis was found and constantly the patient was taken to the operating room where is evidence of perforated cholecystitis. Cholecystectomy was performed and abdominal lavage. The patient has had significant leukocytosis since procedure and some low-grade fever. With his current lack of improvement we infectious diseases consultation was requested. The patient' s is present and does relate he has underlying dementia and with current surgery and infection this has worsened. He is not eating and is difficult to encourage.patient was recently hospitalized with acute myocardial infarction and was started have some recovery before the onset of the abdominal pain. On 11/30/2017 patient is having some improvement. His abdominal pains improved still has no appetite. Is less agitated today. Objective - Vital Signs Vital signs: Vital Signs Temp 97.7 F 11/30/17 20:00 Pulse 66 11/30/17 20:00 Resp 16 11/30/17 20:00 BP 159/86 11/30/17 20:00 Pulse Ox 97 11/30/17 20:00 Intake & Output 11/30/17 11/30/17 12/01/17 06:59 18:59 06:59 Intake Total 950 717 Output Total 1655 320 Balance -705 397 Weight 77.4 kg Intake: IV 600 D5-0.45% NaCl with KCl 600 20Meq/l 1,000 ml @ 75 mls /hr IV .[id number] [facility] Rx#: [id number] Oral 350 717 Output: Drainage 55 20 Right Lower Abdomen 55 20 Urine 1600 300 Straight 600 Other: Voiding Method Urinal Urinal # Voids 2 - Exam 82-year-old male sitting up in chair, arousable but does get irritable quite quick HEENT: Anicteric conjunctiva are pink and moist nasal mucosa grossly intact without significant lesions, there is no thrush.oral mucosa dry Neck: The neck is supple without significant lymphadenopathy or thyromegaly. Lungs: there is symmetricair entry, few expiratory wheezes, no bronchial sounds no dullness or egophony Heart: irregular with a positive S4 There is no significant murmur click or rub , PMI was nondisplaced. Abdomen: few bowel sounds soft and quite tender right upper quadrantsno organomegaly was palpable. abdomen is nonrigid. Extremities: The upper extremities have excellent pulses they are symmetric, no significant petechiae or telangiectasia. No splinter hemorrhages were noted. The lower extremities have mild edema. The peripheral pulses were 2+ and symmetric. Neuro: Awake alert oriented to person seem to recognize his less irritable today - Labs CBC & Chem 7: 11/30/17 07:47 11/30/17 07:47 Labs: Abnormal Lab Results - Last 24 Hours (Table) 11/30/17 11/30/17 Range/Units 07:47 07:47 WBC 16.3 H (3.8-10.6) k/uL Plt Count 499 H (150-450) k/uL Neutrophils # 13.7 H (1.3-7.7) k/uL Sodium 136 L (137-145) mmol/L Creatinine 0.65 L (0.66-1.25) mg/dL Glucose 116 H (74-99) mg/dL AST 78 H (17-59) U/L ALT 105 H (21-72) U/L Total Protein 4.7 L (6.3-8.2) g/dL Albumin 2.4 L (3.5-5.0) g/dL Laboratory Results WBC 16.3 k/uL (3.8-10.6) H 11/30/17 07:47 RBC 4.43 m/uL (4.30-5.90) 11/30/17 07:47 Hgb 13.3 gm/dL (13.0-17.5) 11/30/17 07:47 Hct 40.8 % (39.0-53.0) 11/30/17 07:47 MCV 92.2 fL (80.0-100.0) 11/30/17 07:47 MCH 30.0 pg (25.0-35.0) 11/30/17 07:47 MCHC 32.5 g/dL (31.0-37.0) 11/30/17 07:47 RDW 13.1 % (11.5-15.5) 11/30/17 07:47 Plt Count 499 k/uL (150-450) H 11/30/17 07:47 Neutrophils % 84 % 11/30/17 07:47 Neutrophils % (Manual) 74 % 11/25/17 11:09 Band Neutrophils % 21 % 11/25/17 11:09 Lymphocytes % 7 % 11/30/17 07:47 Lymphocytes % (Manual) 2 % 11/25/17 11:09 Monocytes % 5 % 11/30/17 07:47 Monocytes % (Manual) 1 % 11/25/17 11:09 Eosinophils % 3 % 11/30/17 07:47 Basophils % 0 % 11/30/17 07:47 Metamyelocytes % 3 % 11/25/17 11:09 Myelocytes % 1 % 11/25/17 11:09 Neutrophils # 13.7 k/uL (1.3-7.7) H 11/30/17 07:47 Neutrophils # (Manual) 19.10 k/uL (1.3-7.7) H 11/25/17 11:09 Lymphocytes # 1.1 k/uL (1.0-4.8) 11/30/17 07:47 Lymphocytes # (Manual) 0.40 k/uL (1.0-4.8) L 11/25/17 11:09 Monocytes # 0.8 k/uL (0-1.0) 11/30/17 07:47 Monocytes # (Manual) 0.20 k/uL (0-1.0) 11/25/17 11:09 Eosinophils # 0.5 k/uL (0-0.7) 11/30/17 07:47 Basophils # 0.0 k/uL (0-0.2) 11/30/17 07:47 Metamyelocytes # (Man) 0.61 k/uL (0) H 11/25/17 11:09 Myelocytes # (Manual) 0.20 k/uL (0) H 11/25/17 11:09 Nucleated RBCs 0 /100 WBC (0-0) 11/25/17 11:09 Manual Slide Review Performed 11/25/17 11:09 Poikilocytosis (manual Present 11/25/17 11:09 Crenated Cell Present 11/25/17 11:09 PT 11.9 sec (9.0-12.0) 11/24/17 15:15 INR 1.3 (<1.2) H 11/24/17 15:15 APTT 21.3 sec (22.0-30.0) L 11/24/17 15:15 Sodium 136 mmol/L (137-145) L 11/30/17 07:47 Potassium 4.4 mmol/L (3.5-5.1) 11/30/17 07:47 Chloride 104 mmol/L (98-107) 11/30/17 07:47 Carbon Dioxide 24 mmol/L (22-30) 11/30/17 07:47 Anion Gap 8 mmol/L 11/30/17 07:47 BUN 12 mg/dL (9-20) 11/30/17 07:47 Creatinine 0.65 mg/dL (0.66-1.25) L 11/30/17 07:47 Est GFR (CKD-EPI)AfAm >90 (>60 ml/min/1.73 sqM) 11/30/17 07:47 Est GFR (CKD-EPI)NonAf 89 (>60 ml/min/1.73 sqM) 11/30/17 07:47 Glucose 116 mg/dL (74-99) H 11/30/17 07:47 POC Glucose (mg/dL) 84 mg/dL (75-99) 11/25/17 15:24 POC Glu Art Librarian ID Valeria Cummins 11/25/17 15:24 Plasma Lactic Acid Jasbir 1.4 mmol/L (0.7-2.0) 11/24/17 15:15 Calcium 8.6 mg/dL (8.4-10.2) 11/30/17 07:47 Phosphorus 4.0 mg/dL (2.5-4.5) 11/26/17 04:35 Magnesium 2.2 mg/dL (1.6-2.3) 11/26/17 04:35 Total Bilirubin 0.6 mg/dL (0.2-1.3) 11/30/17 07:47 AST 78 U/L (17-59) H 11/30/17 07:47 ALT 105 U/L (21-72) H 11/30/17 07:47 Alkaline Phosphatase 110 U/L (38-126) 11/30/17 07:47 Total Creatine Kinase 35 U/L (55-170) L 11/24/17 15:15 CK-MB (CK-2) 1.1 ng/mL (0.0-2.4) 11/24/17 15:15 CK-MB (CK-2) Rel Index 3.1 11/24/17 15:15 Troponin I <0.012 ng/mL (0.000-0.034) 11/24/17 15:15 Total Protein 4.7 g/dL (6.3-8.2) L 11/30/17 07:47 Albumin 2.4 g/dL (3.5-5.0) L 11/30/17 07:47 Amylase 56 U/L (30-110) 11/24/17 15:15 Lipase 71 U/L (23-300) 11/24/17 15:15 Urine Color Dark Brown 11/25/17 15:35 Urine Appearance Cloudy (Clear) 11/25/17 15:35 Urine pH 5.5 (5.0-8.0) 11/25/17 15:35 Ur Specific [place] 1.044 (1.001-1.035) H 11/25/17 15:35 Urine Protein 1+ (Negative) H 11/25/17 15:35 Urine Glucose (UA) Negative (Negative) 11/25/17 15:35 Urine Ketones Trace (Negative) H 11/25/17 15:35 Urine Blood Trace (Negative) H 11/25/17 15:35 Urine Nitrite Negative (Negative) 11/25/17 15:35 Urine Bilirubin 1+ (Negative) H 11/25/17 15:35 Urine Urobilinogen 3.0 mg/dL (<2.0) 11/25/17 15:35 Ur Leukocyte Esterase Negative (Negative) 11/25/17 15:35 Urine RBC 12 /hpf (0-5) H 11/25/17 15:35 Urine WBC 4 /hpf (0-5) 11/25/17 15:35 Ur Squamous Epith Cells <1 /hpf (0-4) 11/25/17 15:35 Urine Bacteria Rare /hpf (None) H 11/25/17 15:35 Cellular Casts 7 /lpf (0) 11/25/17 15:35 Hyaline Casts 9 /lpf (0-2) H 11/25/17 15:35 Granular Casts 21 /lpf (0) 11/25/17 15:35 Urine Mucus Rare /hpf (None) H 11/25/17 15:35 Blood Type O Positive 11/25/17 11:09 Blood Type Recheck No 11/25/17 11:09 Antibody Screen NEGATIVE 11/25/17 11:09 Transfuse Platelets 11/25/17 11/25/17 13:05 Spec Expiration Date 11/28/2017 - 230811/25/17 11:09 Microbiology 11/25/17 13:00 Abdomen Anaerobic Culture - Final Anaerobic Gm Negative Bacilli 11/25/17 13:00 Abdomen Gram Stain - Final 11/25/17 13:00 Abdomen Wound Culture - Final Escherichia coli 11/25/17 15:35 Urine,Catheterized Urine Culture - Final Assessment and Plan (1) Acute cholecystitis Narrative/Plan: 82-year-old male presents to hospital with severe abdominal pain, related in the emergency center he was writhing in pain. He was seen by surgery and taken to the operating room for his acute perforated cholecystitis. Postoperatively he has been having ongoing leukocytosis up to 26.5 now with some improvement down to 15. Patient continues to have abdominal pain and not feeling well. Appetite is poor and is having some difficulties with his baseline confusion. Cultures show evidence of E. coli that is not resistant however patient is having difficulties with the leukocytosis and altered mental status. Concern that the metronidazole could be worsening his mental status and altering his appetite. Fiscally that will be discontinued. In to enhance activity into the biliary tract will change Unasyn to ertapenem and monitor. Leukocytosis will be tracked. Hopefully with antibiotic changes and some further hydration his appetite will improve. And with withdrawal of metronidazole hopefully mental status can also improved. 11/30/2017 patient is feeling slightly better today. Leukocytosis with a minimal downward trend. Having no fever. Following with surgery with no significant surgical plan being noted. With the change of antibiotic therapy he seems to be much more awake and interactive and his appetite has improved. Hopefully removal of the metronidazole will continue to improve his neurological status as well as his appetite which can both be significantly impacted by this antibiotic. Current Visit: Yes Status: Acute Code(s): K81.0 - ACUTE CHOLECYSTITIS SNOMED Code(s): 49463527 (2) Abdominal pain Current Visit: Yes Status: Acute Code(s): R10.9 - UNSPECIFIED ABDOMINAL PAIN SNOMED Code(s): 33501079 (3) Leukocytosis Current Visit: Yes Status: Acute Code(s): D72.829 - ELEVATED WHITE BLOOD CELL COUNT, UNSPECIFIED SNOMED Code(s): 493373765 (4) Altered mental state Current Visit: Yes Status: Acute Code(s): R41.82 - ALTERED MENTAL STATUS, UNSPECIFIED SNOMED Code(s): 549296062
[2017-12-01] MEDS: D5-0.45% NACL WITH KCL 20MEQ/L 1,000 ML IV SCH (06:11)
[2017-12-01 07:35] LABS: Basophils % (A) 0 %; Eosinophils # (A) 0.5 k/uL (0-0.7); Eosinophils % (A) 4 %; HCT 37.8 % (39.0-53.0); HGB 12.5 gm/dL (13.0-17.5); Lymphocytes # (A) 1.1 k/uL (1.0-4.8); Lymphocytes % (A) 8 %; MCH 30.3 pg (25.0-35.0); MCHC 33.2 g/dL (31.0-37.0); MCV 91.3 fL (80.0-100.0); Monocytes # (A) 0.6 k/uL (0-1.0); Monocytes % (A) 4 %; Neutrophils # (A) 10.7 k/uL (1.3-7.7); Neutrophils % (A) 82 %; Platelet Count 513 k/uL (150-450); RBC 4.13 m/uL (4.30-5.90); RDW 13.1 % (11.5-15.5)
[2017-12-01 07:54] LABS: ALT 77 U/L (21-72); AST 42 U/L (17-59); Albumin 2.2 g/dL (3.5-5.0); Alkaline Phosphatase 106 U/L (38-126); Anion Gap 9 mmol/L; Blood Urea Nitrogen 8 mg/dL (9-20); Calcium 8.5 mg/dL (8.4-10.2); Carbon Dioxide 24 mmol/L (22-30); Chloride 106 mmol/L (98-107); Glucose 104 mg/dL (74-99); Potassium 4.6 mmol/L (3.5-5.1); Sodium 139 mmol/L (137-145); Total Bilirubin 0.4 mg/dL (0.2-1.3); Total Protein 4.4 g/dL (6.3-8.2)
[2017-12-01 08:04] VITALS: RESP 18
[2017-12-01] MEDS: HEPARIN SODIUM,PORCINE 5,000 UNIT/ML 1 ML VIAL SQ SCH (08:32)
[2017-12-01] MEDS: ACETAMINOPHEN TAB 500 MG TAB PO SCH ×2 (08:32→15:52)
[2017-12-01] MEDS: METOPROLOL TARTRATE 25 MG TAB PO SCH (08:33)
[2017-12-01] MEDS: ASPIRIN 81 MG PO SCH (08:33)
[2017-12-01] MEDS: CLOPIDOGREL 75 MG TAB PO SCH (08:33)
[2017-12-01] MEDS: FAMOTIDINE 20 MG TAB PO SCH (08:33)
[2017-12-01] MEDS: ERTAPENEM 1 GM in SODIUM CHLORIDE 0.9% 50 ML IVPB SCH (08:36)
[2017-12-01] MEDS: BISACODYL 10 MG SUPP RECTAL SCH (10:54)
--- NOTE | 2017-12-01 11:00 | P.PN ---
<Aggie Avalos - Last Filed: 12/01/17 11:21> Subjective Progress Note Date: 12/01/17 82-year-old male seen at bedside sitting up in a chair needs guidance to feed self pleasant oriented to self and place. Afebrile temp 98 white count down to 13 AST down to 42 ALT 77 the wound culture anaerobic gram-negative bacilli E. coli noted infectious disease following surgical dressing dry GALILEA drain right lower quadrant serous drainage noted scant amount discharge plan patient has been accepted at [facility] Postop November 25 laparoscopic with an open cholecystectomy for acute cholecystitis gangrenous perforated Objective - Vital Signs Vital signs: Vital Signs Temp 98.6 F 12/01/17 07:00 Pulse 63 12/01/17 07:00 Resp 18 12/01/17 07:00 BP 166/68 12/01/17 07:00 Pulse Ox 96 12/01/17 07:00 Intake & Output 11/30/17 12/01/17 12/01/17 18:59 06:59 18:59 Intake Total 717 237 Output Total 320 200 Balance 397 37 Weight 77.4 kg Intake: Oral 717 237 Output: Drainage 20 Right Lower Abdomen 20 Urine 300 200 Other: Voiding Method Urinal - Exam Physical exam 82-year-old gentleman sitting up in a chair pleasant oriented to person and place cooperative Lungs adequate air movement bilaterally. On room air sats are 93% Heart S1-S2 audible regular heart rate in the 60s 70s no murmur Abdomen soft nondistended incontinent urine wearing a depends GALILEA drain right lower quadrant serous drainage no stool no reports of nausea vomiting tolerating diet surgical tenderness appropriate surgical dressing dry patient reportedly had a bowel movement the day before Extremities no edema - Labs CBC & Chem 7: 12/01/17 06:45 12/01/17 06:45 Labs: Abnormal Lab Results - Last 24 Hours (Table) 12/01/17 12/01/17 Range/Units 06:45 06:45 WBC 13.0 H (3.8-10.6) k/uL RBC 4.13 L (4.30-5.90) m/uL Hgb 12.5 L (13.0-17.5) gm/dL Hct 37.8 L (39.0-53.0) % Plt Count 513 H (150-450) k/uL Neutrophils # 10.7 H (1.3-7.7) k/uL BUN 8 L (9-20) mg/dL Creatinine 0.65 L (0.66-1.25) mg/dL Glucose 104 H (74-99) mg/dL ALT 77 H (21-72) U/L Total Protein 4.4 L (6.3-8.2) g/dL Albumin 2.2 L (3.5-5.0) g/dL Assessment and Plan Assessment: Impression Present on admission right upper quadrant abdominal pain suspect due to acute gangrenous cholecystitis Ultrasound of the abdomen on admission showed a thickened gallbladder with a large stone in the neck of the gallbladder Postop November 25 laparoscopic with open cholecystectomy for gangrenous perforated calculus cholecystitis Present on admission leukocytosis improving Present on admission altered mental status multifactorial possible related to Flagyl medication induced with leukocytosis related to acute gangrenous cholecystitis Underlying dementia no behavior disturbance Wound culture positive E. coli Plan Per infectious disease recommendations invanz 0ne gram daily 7 days Midline IV insertion for IV antibiotics as ordered Possible transfer to [facility] today Await recommendations by infectious disease antibiotics Continue postop surgical care DVT and GI prophylaxis Pain control PT OT eval Home meds as appropriate The above impression and plan of care have been discussed and directed by signing physician. Aggie Avalos nurse practitioner acting as scribe for signing physician. <Carlos Manuel Blanchard - Last Filed: 12/01/17 13:05> Objective - Vital Signs Vital signs: Vital Signs Temp 98.6 F 12/01/17 07:00 Pulse 63 12/01/17 07:00 Resp 18 12/01/17 07:00 BP 166/68 12/01/17 07:00 Pulse Ox 96 12/01/17 07:00 Intake & Output 11/30/17 12/01/17 12/01/17 18:59 06:59 18:59 Intake Total 717 237 Output Total 320 200 Balance 397 37 Weight 77.4 kg Intake: Oral 717 237 Output: Drainage 20 Right Lower Abdomen 20 Urine 300 200 Other: Voiding Method Urinal - Labs CBC & Chem 7: 12/01/17 06:45 12/01/17 06:45 Labs: Abnormal Lab Results - Last 24 Hours (Table) 12/01/17 12/01/17 Range/Units 06:45 06:45 WBC 13.0 H (3.8-10.6) k/uL RBC 4.13 L (4.30-5.90) m/uL Hgb 12.5 L (13.0-17.5) gm/dL Hct 37.8 L (39.0-53.0) % Plt Count 513 H (150-450) k/uL Neutrophils # 10.7 H (1.3-7.7) k/uL BUN 8 L (9-20) mg/dL Creatinine 0.65 L (0.66-1.25) mg/dL Glucose 104 H (74-99) mg/dL ALT 77 H (21-72) U/L Total Protein 4.4 L (6.3-8.2) g/dL Albumin 2.2 L (3.5-5.0) g/dL Assessment and Plan Assessment: Patient doing well today. Tolerating diet. Labs are improved. He is anxious to go to rehab. We'll try to make arrangements for rehab today if cleared by consultants. (1) Acute cholecystitis Current Visit: Yes Status: Acute Code(s): K81.0 - ACUTE CHOLECYSTITIS SNOMED Code(s): 08835144
--- NOTE | 2017-12-01 14:00 | P.DS ---
Providers Date of admission: 11/24/17 16:38 Expected date of discharge: 12/01/17 Attending physician: Carlos Manuel Blanchard Consults: 11/24/17 16:38 Consult Physician Routine Consulting Provider: Efrain Hdz Consult Reason/Comments: megMgMnt Do you want consulting provider notified?: Yes 11/25/17 08:35 Consult Physician Urgent Consulting Provider: Lexi Haynes Consult Reason/Comments: cardiac clearance Do you want consulting provider notified?: Already Contacted 11/25/17 14:58 Consult Physician Routine Consulting Provider: Skyler Meadows Consult Reason/Comments: icu care Do you want consulting provider notified?: Already Contacted 11/29/17 15:38 Consult Physician Routine Consulting Provider: Driss Licea Consult Reason/Comments: WBC on Unasyn Do you want consulting provider notified?: Yes Primary care physician: [facility] Course: 82-year-old male presented to the emergency room on the day of admission for a chief complaint of experiencing severe epigastric abdominal pain radiating into the back. Patient stated the pain was unbearable. Significant amount of tenderness in the epigastric and right upper quadrant was noted. CAT scan done in the emergency room as well as an ultrasound showed a thickened gallbladder wall with a large stone in the neck of the gallbladder. Surrounding fluid suspicious for acute gangrenous cholecystitis. On admission initial white count was 8.9 did develop leukocytosis with a white count up to 26.5 after the procedure at the time of discharge was trending down. Infectious disease did participate in the plan of care. Initial presentation to the emergency room patient was noted to be confused which the stated was different from the baseline. Dr. Licea felt that the confusion could be related to medication such as Flagyl as well as the acute gangrenous cholecystitis. antibiotic per recommendations of infectious disease were changed Flagyl was stopped the mental status slowly improved Patient does have a history of a recent acute myocardial infarction September 2017. That admission underwent a heart catheterization with a stent placed to the right coronary artery. Had been on aspirin and Plavix . did undergo on November 25 laparoscopy with open cholecystectomy for a gangrenous perforated calculus cholecystitis postop patient was admitted to the intensive care unit stabilized and able to be transferred out to the surgical unit. Patient was followed by physical and occupational therapy. was felt to be a candidate for subacute rehab. Infectious disease Dr. Licea recommendations reviewed the cultures did show evidence of E. coli. Infectious disease Dr. Licea recommendations Avelox 400 mg daily for 10 day course patient had no IV access at the time of discharge the decision was made per Dr. Licea to use Avelox as ordered was felt to be hemodynamically stable and appropriate to be transferred to the [facility] rehab Impression Present on admission right upper quadrant abdominal pain suspect due to acute gangrenous cholecystitis Ultrasound of the abdomen on admission showed a thickened gallbladder with a large stone in the neck of the gallbladder Postop November 25 laparoscopic with open cholecystectomy for gangrenous perforated calculus cholecystitis Present on admission leukocytosis improving Present on admission altered mental status multifactorial possible related to Flagyl medication induced with leukocytosis related to acute gangrenous cholecystitis Underlying dementia no behavior disturbance Wound culture positive E. coli The above impression and plan of care have been discussed and directed by signing physician. Aggie Avalos nurse practitioner acting as scribe for signing physician. Patient Condition at Discharge: Fair Plan - Discharge Summary Discharge Rx Participant: No New Discharge Prescriptions: New Acetaminophen Tab [Tylenol Tab] 650 mg PO Q4H PRN #30 tablet PRN Reason: Mild Pain Moxifloxacin HCl [Avelox] 400 mg PO DAILY #10 tablet No Action Tamsulosin [Flomax] 0.4 mg PO W/SUPPER Sertraline [Zoloft] 25 mg PO HS Donepezil [Aricept] 10 mg PO DAILY Multivitamin with Iron [Multivitamins with Iron] 1 tab PO DAILY Aspirin 81 mg PO DAILY #30 chew Atorvastatin [Lipitor] 80 mg PO HS #30 tab Clopidogrel [Plavix] 75 mg PO DAILY #30 tab Lisinopril [Zestril] 5 mg PO DAILY #30 tab Metoprolol Tartrate [Lopressor] 25 mg PO BID #60 tab Nitroglycerin Sl Tabs [Nitrostat] 0.4 mg SUBLINGUAL Q5M PRN #25 tab PRN Reason: Chest Pain Cholecalciferol [Vitamin D3] 1,000 unit PO DAILY Discharge Medication List Donepezil [Aricept] 10 mg PO DAILY 10/15/17 [History] Multivitamin with Iron [Multivitamins with Iron] 1 tab PO DAILY 10/15/17 [ History] Sertraline [Zoloft] 25 mg PO HS 10/15/17 [History] Tamsulosin [Flomax] 0.4 mg PO W/SUPPER 10/15/17 [History] Aspirin 81 mg PO DAILY #30 chew 10/17/17 [Rx] Atorvastatin [Lipitor] 80 mg PO HS #30 tab 10/17/17 [Rx] Clopidogrel [Plavix] 75 mg PO DAILY #30 tab 10/17/17 [Rx] Lisinopril [Zestril] 5 mg PO DAILY #30 tab 10/17/17 [Rx] Metoprolol Tartrate [Lopressor] 25 mg PO BID #60 tab 10/17/17 [Rx] Nitroglycerin Sl Tabs [Nitrostat] 0.4 mg SUBLINGUAL Q5M PRN #25 tab 10/17/17 [Rx ] Cholecalciferol [Vitamin D3] 1,000 unit PO DAILY 11/24/17 [History] Acetaminophen Tab [Tylenol Tab] 650 mg PO Q4H PRN #30 tablet 12/01/17 [Rx] Moxifloxacin HCl [Avelox] 400 mg PO DAILY #10 tablet 12/01/17 [Rx] Follow up Appointment(s)/Referral(s): Carlos Manuel Blanchard MD [Medical Doctor] - 12/07/17 10:15 am Driss Licea MD [STAFF PHYSICIAN] - 12/21/17 3:30 pm (Please bring insurance card and ID and list of medication with you) Rohan Hdez MD [Primary Care Provider] - 1-2 days Ambulatory/Diagnostic Orders: Complete Blood Count w/diff [LAB.AMB] Location: Determined By Patient Comprehensive Metabolic Panel [LAB.AMB] Location: Determined By Patient Activity/Diet/Wound Care/Special Instructions: No tub bath for six weeks. Shower daily. No lifting over 10 pounds for the next 6 weeks. Monitor GALILEA drain and record. Daily May use ice packs to surgical site. Advance diet as tolerated Discharge Disposition: TRANSFER TO SNF/ECF
[2017-12-01 15:23] VITALS: BP 132/66; PULSE 60; TEMP 98.2
== END 2017-12-01 16:00 | DRG 414 ==
LOC: EC 15:01 → 3SUR 16:38 → 6ICU 11-25 15:18 → 3SUR 11-26 12:11
PROVIDERS: ADMIT Surgery; ATTEND Surgery
PROC: 6A550Z2 Pheresis of Platelets, Single (ICD-10-PCS; 2017-11-25)
PROC: 0FT40ZZ Resection of Gallbladder, Open Approach (ICD-10-PCS; principal; 2017-11-25 10:15)
DX: K80.00 Calculus of gallbladder with acute cholecystitis without obstruction (principal); K82.2 Perforation of gallbladder; E55.9 Vitamin D deficiency, unspecified; E78.5 Hyperlipidemia, unspecified; F03.90 Unspecified dementia, unspecified severity, without behavioral disturbance, psychotic disturbance, mood disturbance, and anxiety; I10 Essential (primary) hypertension; B96.20 Unspecified Escherichia coli [E. coli] as the cause of diseases classified elsewhere; I25.10 Atherosclerotic heart disease of native coronary artery without angina pectoris; I25.2 Old myocardial infarction; N40.0 Benign prostatic hyperplasia without lower urinary tract symptoms; F32.9 Major depressive disorder, single episode, unspecified; R41.82 Altered mental status, unspecified; T37.3X5A Adverse effect of other antiprotozoal drugs, initial encounter; Y92.9 Unspecified place or not applicable; Z79.02 Long term (current) use of antithrombotics/antiplatelets; Z79.82 Long term (current) use of aspirin; Z95.5 Presence of coronary angioplasty implant and graft; Z87.891 Personal history of nicotine dependence; Z79.899 Other long term (current) drug therapy; Z82.49 Family history of ischemic heart disease and other diseases of the circulatory system; Z84.1 Family history of disorders of kidney and ureter
CPT/HCPCS: 36415; 36430; 71045; 71275; 74177; 76705; 80048; 80053; 81001; 82150; 82550; 82553; 83605; 83690; 83735; 84100; 84484; 85025; 85610; 85730; 86850; 86900; 86901; 87070; 87075; 87077; 87086; 87186; 87205; 88304; 93005; 94640; 94760; 96361; 96365; 96366; 96368; 96375; 96376; 99285

== ENCOUNTER 2020-01-21 21:23 | Emergency (ER) | payer MEDICARE ==
[2020-01-21 21:32] VITALS: TEMP 98
--- NOTE | 2020-01-21 22:55 | CT ---
EXAMINATION TYPE: CT brain cspine wo con DATE OF EXAM: 01/21/2020 COMPARISON: None HISTORY: fall CT DLP: 2059.4 mGycm Automated exposure control for dose reduction was used. There is diffuse cerebral cortical atrophy. There is no mass effect nor midline shift. There is no si gn of intracranial hemorrhage. There is increased density in the ethmoid air cells consistent with si nusitis. Orbital margins are intact. Cervical vertebra show fairly normal alignment. There is a degenerative mild anterior subluxation at C4-5. I see no evidence of cervical spine fracture. There is multilevel cervical facet arthropathy. E xam limited slightly by motion. I see no focal bone destruction. Impression new graft moderately severe cerebral atrophy. No acute intracranial abnormality. Ethmoid s inusitis. Spondylotic changes in the cervical spine. No fracture seen.
--- NOTE | 2020-01-21 23:04 | ED ---
Fall HPI - General Chief Complaint: Fall Stated Complaint: Fall Time Seen by Provider: 01/21/20 21:30 Source: patient, EMS Mode of arrival: EMS - History of Present Illness Initial Comments: The patient is an 84-year-old male with history of dementia who presents to the emergency room and after he sustained a fall. His is at bedside and helps provide history. She states the patient was using his walker, shuffling to try and sit down in his recliner. States that he lost his footing and fell backwards. She is unsure if he hit his head. There was no loss of conscious ness. Patient denies any headaches or visual changes. No neck pain. Denies any chest pain or shortness of breath. Denies any pain in his extremities. Patient denies having a syncopal episode. He states that he fell and has no pain at this time. They did call EMS to help pick him up. They agreed to transfer to the hospital even though the patient's refuses that he has any injuries. Patient is alert and oriented without confusion at this time. There are no other alleviating, precipitating or modifying factors - Related Data Home Medications Medication Instructions Recorded Confirmed Donepezil [Aricept] 10 mg PO DAILY 10/15/17 11/24/17 Multivitamin with Iron 1 tab PO DAILY 10/15/17 11/24/17 [Multivitamins with Iron] Sertraline [Zoloft] 25 mg PO HS 10/15/17 11/24/17 Tamsulosin [Flomax] 0.4 mg PO W/SUPPER 10/15/17 11/24/17 Cholecalciferol [Vitamin D3] 1,000 unit PO DAILY 11/24/17 11/24/17 Previous Rx's Medication Instructions Recorded Aspirin 81 mg PO DAILY #30 chew 10/17/17 Atorvastatin [Lipitor] 80 mg PO HS #30 tab 10/17/17 Clopidogrel [Plavix] 75 mg PO DAILY #30 tab 10/17/17 Lisinopril [Zestril] 5 mg PO DAILY #30 tab 10/17/17 Metoprolol Tartrate [Lopressor] 25 mg PO BID #60 tab 10/17/17 Nitroglycerin Sl Tabs [Nitrostat] 0.4 mg SUBLINGUAL Q5M PRN #25 tab 10/17/17 Acetaminophen Tab [Tylenol Tab] 650 mg PO Q4H PRN #30 tablet 12/01/17 Moxifloxacin HCl [Avelox] 400 mg PO DAILY #10 tablet 12/01/17 Allergies Allergy/AdvReac Type Severity Reaction Status Date / Time No Known Allergies Allergy Verified 11/24/17 15:08 Review of Systems ROS Statement: Those systems with pertinent positive or pertinent negative responses have been documented in the HPI. ROS Other: All systems not noted in ROS Statement are negative. Past Medical History Past Medical History: Dementia History of Any Multi-Drug Resistant Organisms: None Reported Past Surgical History: Back Surgery Additional Past Surgical History / Comment(s): Heart Cath today 10/15 2 stents to the RCA Past Anesthesia/Blood Transfusion Reactions: No Reported Reaction Date of Last Stent Placement:: 10/15/17 Past Psychological History: No Psychological Hx Reported Smoking Status: Former smoker Past Alcohol Use History: Daily Past Drug Use History: None Reported - Past Family History Father Family Medical History: Renal Disease Mother Family Medical History: Myocardial Infarction (VT) General Exam Limitations: no limitations General appearance: alert, in no apparent distress Head exam: Present: atraumatic, normocephalic, normal inspection Eye exam: Present: normal appearance, PERRL, EOMI. Absent: scleral icterus, conjunctival injection, periorbital swelling ENT exam: Present: normal exam, mucous membranes moist Neck exam: Present: normal inspection. Absent: tenderness, meningismus, lymphadenopathy Respiratory exam: Present: normal lung sounds bilaterally. Absent: respiratory distress, wheezes, rales, rhonchi, stridor Cardiovascular Exam: Present: normal rhythm, bradycardia, normal heart sounds. Absent: systolic murmur, diastolic murmur, rubs, gallop, clicks GI/Abdominal exam: Present: soft, normal bowel sounds. Absent: distended, tenderness, guarding, rebound, rigid Extremities exam: Present: normal inspection, full ROM, normal capillary refill. Absent: tenderness, pedal edema, joint swelling, calf tenderness Back exam: Present: normal inspection Neurological exam: Present: alert, CN II-XII intact, other (oriented to self which is the patients baseline) Psychiatric exam: Present: normal affect, normal mood Skin exam: Present: warm, dry, intact, normal color. Absent: rash Course Vital Signs 01/21/20 01/21/20 21:26 23:16 Temperature 98 F Pulse Rate 55 L 59 L Respiratory 17 18 Rate Blood Pressure 148/68 128/62 O2 Sat by Pulse 99 97 Oximetry Medical Decision Making - Medical Decision Making Upon arrival the patient is placed in room 6. A thorough history and physical exam is performed. Patient denies any pain. He denies blunt head trauma however the report from the is at she cannot excluded. Because of this I did recommend CT of the patient's brain and cervical spine. He does arrive in c-collar. Patient did agree to this. CT the patient's brain demonstrates diffuse cerebral atrophy. No mass or midline shift. No intracranial hemorrhage. Cervical spine demonstrates no fracture. He did remove the patient cervical collar he reports no pain. I discussed diagnosis, differential and treatment options. At this time the patient will be discharged home and is to follow-up with his primary care doctor. He is extremely eager to leave. He is to return to the emergency room for any new worsening symptoms. The patient was then discharged home in stable condition Disposition Clinical Impression: Fall Disposition: HOME SELF-CARE Condition: Stable Instructions (If sedation given, give patient instructions): Fall Prevention for Older Adults (ED) Additional Instructions: Please follow-up with your primary care doctor in 2-4 days. Return to the emergency room for any new or worsening symptoms Is patient prescribed a controlled substance at d/c from ED?: No Referrals: oRhan Hdez MD [Primary Care Provider] - 1-2 days Time of Disposition: 23:04
[2020-01-21 23:18] VITALS: BP 128/62; PULSE 59; RESP 18
== END 2020-01-21 23:18 | disposition home or self-care (01) ==
LOC: EC 21:23
DX: G31.9 Degenerative disease of nervous system, unspecified (principal); F02.80 Dementia in other diseases classified elsewhere, unspecified severity, without behavioral disturbance, psychotic disturbance, mood disturbance, and anxiety; Z95.818 Presence of other cardiac implants and grafts; Z87.891 Personal history of nicotine dependence; Z79.899 Other long term (current) drug therapy; W19.XXXA Unspecified fall, initial encounter
CPT/HCPCS: 70450; 72125; 99284